=== PATIENT | male | born 1955 | race Caucasian/White ===

== ENCOUNTER 2016-09-17 14:35 | Emergency (ER) | payer OTHER ==
[2016-09-17 14:58] VITALS: BP 167/97; PULSE 65; RESP 18; TEMP 97.2
--- NOTE | 2016-09-17 15:37 | XR ---
Right humerus HISTORY: Pain 2 views of the right humerus submitted No comparisons Bone mineralization, alignment, joint spaces are maintained. No cortical destruction or evident soft tissue mass. IMPRESSION: No significant abnormalities evident. Follow-up as indicated
--- NOTE | 2016-09-17 15:58 | ED ---
Upper Extremity HPI - General Chief Complaint: Extremity Injury, Upper Stated Complaint: Pain in R arm Time Seen by Provider: 09/17/16 15:01 Source: patient, RN notes reviewed Mode of arrival: ambulatory Limitations: no limitations - History of Present Illness Initial Comments: Patient is a 61 year old male with right arm pain for one week after switching to a larger coffee cup, patient reports he saw his PCP and was told this could be related to his statin, and was told to discontinue his statin for 10 days. Patient reports he has done this for 5 days. Patient reports he has had a stroke many years ago, so his right side is chronically weaker. He has not evidence of neurlogical deficits or motor weakness. Patient states that he has done heat pads and taken naproxen with relief. Patient reports the pain only occurs if he over uses that arm. Patient states the pain is starting in the upper arm and can radiate to his forearm. HE denies peripheral paresthesias, or any other symptoms. - Related Data Home Medications Medication Instructions Recorded Confirmed Aspirin 325 mg PO DAILY 12/16/14 09/17/16 Atorvastatin [Lipitor] 10 mg PO HS 12/16/14 09/17/16 Glimepiride [Glimepiride] 4 mg PO BID 12/16/14 09/17/16 Primidone [Primidone] 150 mg PO BID 12/16/14 09/17/16 sitaGLIPtin [Januvia] 100 mg PO DAILY 12/16/14 09/17/16 Gabapentin 600 mg PO BID 09/17/16 09/17/16 Gabapentin 800 mg PO HS 09/17/16 09/17/16 metFORMIN HCL 1,000 mg PO BID 09/17/16 09/17/16 Previous Rx's Medication Instructions Recorded Cyclobenzaprine [Flexeril] 10 mg PO TID #9 tab 09/17/16 Allergies Allergy/AdvReac Type Severity Reaction Status Date / Time No Known Allergies Allergy Verified 09/17/16 15:27 Review of Systems ROS Statement: Those systems with pertinent positive or pertinent negative responses have been documented in the HPI. ROS Other: All systems not noted in ROS Statement are negative. Past Medical History Past Medical History: CVA/TIA, GERD/Reflux, Hyperlipidemia, Neurologic Disorder , Seizure Disorder History of Any Multi-Drug Resistant Organisms: None Reported Past Surgical History: Orthopedic Surgery Additional Past Surgical History / Comment(s): neuropathy, last seizure 1986, "born with convulsions", lymph nodes removed left cervical, left knee surgery Past Psychological History: No Psychological Hx Reported Smoking Status: Former smoker Past Alcohol Use History: Rare Past Drug Use History: None Reported General Exam Limitations: no limitations General appearance: alert, in no apparent distress Head exam: Present: atraumatic, normocephalic, normal inspection Eye exam: Present: normal appearance, PERRL, EOMI. Absent: scleral icterus, conjunctival injection, periorbital swelling ENT exam: Present: normal exam, mucous membranes moist Neck exam: Present: normal inspection. Absent: tenderness, meningismus, lymphadenopathy Respiratory exam: Present: normal lung sounds bilaterally. Absent: respiratory distress, wheezes, rales, rhonchi, stridor Cardiovascular Exam: Present: regular rate, normal rhythm, normal heart sounds. Absent: systolic murmur, diastolic murmur, rubs, gallop, clicks GI/Abdominal exam: Present: soft, normal bowel sounds. Absent: distended, tenderness, guarding, rebound, rigid Extremities exam: Present: normal inspection, full ROM, normal capillary refill. Absent: tenderness, pedal edema, joint swelling, calf tenderness Right Upper Arm exam: Present: normal inspection, full ROM Elbow exam: Present: normal inspection, full ROM Forearm Wrist exam: Present: normal inspection, full ROM Hand Wrist exam: Present: normal inspection, full ROM Back exam: Present: normal inspection Neurological exam: Present: alert, oriented X3, CN II-XII intact Psychiatric exam: Present: normal affect, normal mood Skin exam: Present: warm, dry, intact, normal color. Absent: rash Course Vital Signs 09/17/16 14:55 Temperature 97.2 F L Pulse Rate 65 Respiratory 18 Rate Blood Pressure 167/97 O2 Sat by Pulse 99 Oximetry Medical Decision Making - Medical Decision Making Patient is a 61 year old male with right arm pain for one week after switching to using a heavy coffee cup. Patient reports that his pain only hurts when he has excessive use of the arm. Xray of humerus shows no acute abnormalities. Patient has full strength in bilateral extermities. Patient advised to continue to hold on using statin until seen by PCP in 5 days. Patient also gven short Rx for muscle relaxer to use if symptoms continue to perisist despite antifinflammatory medication. Disposition Clinical Impression: Right arm pain Disposition: HOME SELF-CARE Condition: Good Additional Instructions: Patient instructed to apply warm compresses over her arm. Take muscle relaxers as directed. Follow-up with primary care physician in the next week as scheduled. Prescriptions: Cyclobenzaprine [Flexeril] 10 mg PO TID #9 tab Referrals: Jason Morse MD [Primary Care Provider] - 1-2 days Time of Disposition: 15:57
== END 2016-09-17 16:15 | disposition home or self-care (01) ==
LOC: EC 14:35
DX: M79.601 Pain in right arm (principal); G40.909 Epilepsy, unspecified, not intractable, without status epilepticus; G62.9 Polyneuropathy, unspecified; Z79.899 Other long term (current) drug therapy; Z79.84 Long term (current) use of oral hypoglycemic drugs; Z79.82 Long term (current) use of aspirin; Z87.891 Personal history of nicotine dependence; Z86.73 Personal history of transient ischemic attack (TIA), and cerebral infarction without residual deficits
CPT/HCPCS: 99283

== ENCOUNTER 2018-04-04 16:50 | Emergency (ER) | payer MEDICARE, OTHER ==
[2018-04-04] MEDS ORDERED: SODIUM CHLORIDE 0.9% 1,000 ML IV STA (17:20)
[2018-04-04 17:25] LABS: Glucose,Whole Blood 79 mg/dL (75-99)
[2018-04-04] MEDS ORDERED: ONDANSETRON 4 MG/2 ML VIAL IVP STA (17:25)
--- NOTE | 2018-04-04 17:32 | ED ---
Recheck HPI - General Chief Complaint: Recheck/Abnormal Lab/Rx Stated Complaint: diaphoresis and nausea Time Seen by Provider: 04/04/18 17:06 Source: patient, EMS, RN notes reviewed Mode of arrival: EMS Limitations: no limitations - History of Present Illness Initial Comments: This is a 62-year-old male who presents to the emergency department with chief complaint of diaphoresis and nausea. Patient states that at approximately 4 PM he became nauseous. He states he went to the bathroom and tried to vomit but was unable to. He states that he then felt nauseous for a second time, went to the bathroom and was unable to vomit again. He states that he attempted to make himself throw up and became very diaphoretic. He states that his shirt was soaked. 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 Patient states he then became very cold. He then contacted EMS. Blood glucose was checked on the way to the hospital and was 74. He was given oral glucose supplementation. Patient does have type II diabetes and does take Januvia. He denies any cardiac history but does state he has had one stroke and 2 TIAs. At this time, patient complains of nausea. He denies fevers or chills, chest pain or shortness of breath, abdominal pain, diarrhea or constipation, weakness, dizziness or headache. - Related Data Home Medications Medication Instructions Recorded Confirmed Aspirin 325 mg PO DAILY 12/16/14 09/17/16 Atorvastatin [Lipitor] 10 mg PO HS 12/16/14 09/17/16 Glimepiride 4 mg PO BID 12/16/14 09/17/16 Primidone 150 mg PO BID 12/16/14 09/17/16 sitaGLIPtin [Januvia] 100 mg PO DAILY 12/16/14 09/17/16 Gabapentin 600 mg PO BID 09/17/16 09/17/16 Gabapentin 800 mg PO HS 09/17/16 09/17/16 metFORMIN HCL 1,000 mg PO BID 09/17/16 09/17/16 Previous Rx's Medication Instructions Recorded Cyclobenzaprine [Flexeril] 10 mg PO TID #9 tab 09/17/16 Allergies Allergy/AdvReac Type Severity Reaction Status Date / Time No Known Allergies Allergy Verified 09/17/16 15:27 Review of Systems ROS Statement: Those systems with pertinent positive or pertinent negative responses have been documented in the HPI. ROS Other: All systems not noted in ROS Statement are negative. Past Medical History Past Medical History: CVA/TIA, GERD/Reflux, Hyperlipidemia, Neurologic Disorder , Seizure Disorder History of Any Multi-Drug Resistant Organisms: None Reported Past Surgical History: Orthopedic Surgery Additional Past Surgical History / Comment(s): neuropathy, last seizure 1986, "born with convulsions", lymph nodes removed left cervical, left knee surgery Past Psychological History: No Psychological Hx Reported Smoking Status: Former smoker Past Alcohol Use History: Rare Past Drug Use History: None Reported General Exam - General Exam Comments Initial Comments: General: Awake and alert, well-developed; in no apparent distress. Lying comfortably on ED stretcher. Patient is not diaphoretic at this time. HEENT: Head atraumatic, normocephalic. Pupils are equal, round and reactive to light. Extraocular movements intact. Oropharynx moist without erythema or exudate. Neck: Supple. Normal ROM. Cardiovascular: Regular rate and rhythm. No murmurs, rubs or gallops. Chest symmetrical. Respiratory: Lungs clear to auscultation bilaterally. No wheezes, rales or rhonchi. Normal respiratory effort with no use of accessory muscles. Abdomen: Soft, non-tender, non-distended. No rigidity, rebound or guarding. Normal bowel sounds in all 4 quadrants. Musculoskeletal: Normal ROM, no tenderness, strength 5/5 bilateral upper and lower extremities. Ambulating normally. Skin: [place], warm and dry without rashes or lesions. Neurological: Alert and oriented x3. CN II-XII grossly intact. Speech is fluent and answers are appropriate. No focal neuro deficits. Psychiatric: Normal mood and affect. No overt signs of depression or anxiety noted. Limitations: no limitations Course Vital Signs 04/04/18 16:51 Temperature 97.4 F L Pulse Rate 65 Respiratory 18 Rate Blood Pressure 189/87 O2 Sat by Pulse 100 Oximetry Medical Decision Making - Medical Decision Making This is a 62-year-old male who presents to the emergency department with chief complaint of diaphoresis and nausea. Patient does have a history of diabetes. He states that he does not check his blood sugar. He states that he had an episode of nausea and diaphoresis prior to arrival. Blood glucose was checked by EMS on arrival and was noted to be 74. Patient was given oral glucose. Patient has been asymptomatic while in the emergency department. He is no longer diaphoretic. No nausea or vomiting. Cardiac workup was performed. This was negative. EKG revealed sinus bradycardia. Troponin is negative. CBC and CMP are unremarkable. Patient's vital signs have been stable and he is in no acute distress. He will be discharged home at this time. Recommended checking his blood glucose level daily, however patient refuses. He states that he does not want to poke his finger as it is painful. All questions answered. - Lab Data Result diagrams: 04/04/18 12:00 04/04/18 12:00 Lab Results 04/04/18 04/04/18 04/04/18 Range/Units 12:00 12:00 12:00 WBC 11.0 H (3.8-10.6) k/uL RBC 4.12 L (4.30-5.90) m/uL Hgb 13.5 (13.0-17.5) gm/dL Hct 39.4 (39.0-53.0) % MCV 95.5 (80.0-100.0) fL MCH 32.9 (25.0-35.0) pg MCHC 34.4 (31.0-37.0) g/dL RDW 13.0 (11.5-15.5) % Plt Count 282 (150-450) k/uL Neutrophils % 72 % Lymphocytes % 19 % Monocytes % 6 % Eosinophils % 1 % Basophils % 0 % Neutrophils # 7.9 H (1.3-7.7) k/uL Lymphocytes # 2.1 (1.0-4.8) k/uL Monocytes # 0.7 (0-1.0) k/uL Eosinophils # 0.1 (0-0.7) k/uL Basophils # 0.0 (0-0.2) k/uL PT (9.0-12.0) sec INR (<1.2) APTT (22.0-30.0) sec Sodium 137 (137-145) mmol/L Potassium 4.3 (3.5-5.1) mmol/L Chloride 100 (98-107) mmol/L Carbon Dioxide 24 (22-30) mmol/L Anion Gap 13 mmol/L BUN 17 (9-20) mg/dL Creatinine 0.82 (0.66-1.25) mg/dL Est GFR (CKD-EPI)AfAm >90 (>60 ml/min/1.73 sqM) Est GFR (CKD-EPI)NonAf >90 (>60 ml/min/1.73 sqM) Glucose 75 (74-99) mg/dL POC Glucose (mg/dL) (75-99) mg/dL POC Glu Gospel Singer ID Calcium 10.0 (8.4-10.2) mg/dL Magnesium 1.8 (1.6-2.3) mg/dL Total Bilirubin 0.3 (0.2-1.3) mg/dL AST 22 (17-59) U/L ALT 26 (21-72) U/L Alkaline Phosphatase 103 (38-126) U/L Total Creatine Kinase 85 (55-170) U/L CK-MB (CK-2) 0.7 (0.0-2.4) ng/mL CK-MB (CK-2) Rel Index 0.8 Troponin I <0.012 (0.000-0.034) ng/mL Total Protein 8.4 H (6.3-8.2) g/dL Albumin 4.6 (3.5-5.0) g/dL Urine Color Urine Appearance (Clear) Urine pH (5.0-8.0) Ur Specific [place] (1.001-1.035) Urine Protein (Negative) Urine Glucose (UA) (Negative) Urine Ketones (Negative) Urine Blood (Negative) Urine Nitrite (Negative) Urine Bilirubin (Negative) Urine Urobilinogen (<2.0) mg/dL Ur Leukocyte Esterase (Negative) 04/04/18 04/04/18 04/04/18 Range/Units 12:00 17:14 18:59 WBC (3.8-10.6) k/uL RBC (4.30-5.90) m/uL Hgb (13.0-17.5) gm/dL Hct (39.0-53.0) % MCV (80.0-100.0) fL MCH (25.0-35.0) pg MCHC (31.0-37.0) g/dL RDW (11.5-15.5) % Plt Count (150-450) k/uL Neutrophils % % Lymphocytes % % Monocytes % % Eosinophils % % Basophils % % Neutrophils # (1.3-7.7) k/uL Lymphocytes # (1.0-4.8) k/uL Monocytes # (0-1.0) k/uL Eosinophils # (0-0.7) k/uL Basophils # (0-0.2) k/uL PT 10.7 (9.0-12.0) sec INR 1.1 (<1.2) APTT 26.1 (22.0-30.0) sec Sodium (137-145) mmol/L Potassium (3.5-5.1) mmol/L Chloride (98-107) mmol/L Carbon Dioxide (22-30) mmol/L Anion Gap mmol/L BUN (9-20) mg/dL Creatinine (0.66-1.25) mg/dL Est GFR (CKD-EPI)AfAm (>60 ml/min/1.73 sqM) Est GFR (CKD-EPI)NonAf (>60 ml/min/1.73 sqM) Glucose (74-99) mg/dL POC Glucose (mg/dL) 79 (75-99) mg/dL POC Glu Gospel Singer ID Ileana Torrez Calcium (8.4-10.2) mg/dL Magnesium (1.6-2.3) mg/dL Total Bilirubin (0.2-1.3) mg/dL AST (17-59) U/L ALT (21-72) U/L Alkaline Phosphatase (38-126) U/L Total Creatine Kinase (55-170) U/L CK-MB (CK-2) (0.0-2.4) ng/mL CK-MB (CK-2) Rel Index Troponin I (0.000-0.034) ng/mL Total Protein (6.3-8.2) g/dL Albumin (3.5-5.0) g/dL Urine Color Light Yellow Urine Appearance Clear (Clear) Urine pH 7.5 (5.0-8.0) Ur Specific [place] 1.011 (1.001-1.035) Urine Protein Trace H (Negative) Urine Glucose (UA) Negative (Negative) Urine Ketones Negative (Negative) Urine Blood Negative (Negative) Urine Nitrite Negative (Negative) Urine Bilirubin Negative (Negative) Urine Urobilinogen <2.0 (<2.0) mg/dL Ur Leukocyte Esterase Negative (Negative) - Radiology Data Radiology results: report reviewed Chest x-ray impression: No acute cardiopulmonary process. No significant change from prior. Disposition Clinical Impression: Hypoglycemic reaction Disposition: HOME SELF-CARE Condition: Good Instructions: Hypoglycemia in a Person with Diabetes (ED) Additional Instructions: Please follow up with primary care provider within 1-2 days. Return to emergency department if symptoms should worsen or any concerns arise. Is patient prescribed a controlled substance at d/c from ED?: No Referrals: Jason Morse MD [Primary Care Provider] - 1-2 days Time of Disposition: 18:54
[2018-04-04 17:44] LABS: Basophils % (A) 0 %; Eosinophils # (A) 0.1 k/uL (0-0.7); Eosinophils % (A) 1 %; HCT 39.4 % (39.0-53.0); HGB 13.5 gm/dL (13.0-17.5); Lymphocytes # (A) 2.1 k/uL (1.0-4.8); Lymphocytes % (A) 19 %; MCH 32.9 pg (25.0-35.0); MCHC 34.4 g/dL (31.0-37.0); MCV 95.5 fL (80.0-100.0); Mean Platelet Volume 6.2; Monocytes # (A) 0.7 k/uL (0-1.0); Monocytes % (A) 6 %; Neutrophils # (A) 7.9 k/uL (1.3-7.7); Neutrophils % (A) 72 %; Platelet Count 282 k/uL (150-450); RBC 4.12 m/uL (4.30-5.90)
[2018-04-04 17:55] LABS: ALT 26 U/L (21-72); AST 22 U/L (17-59); Albumin 4.6 g/dL (3.5-5.0); Alkaline Phosphatase 103 U/L (38-126); Anion Gap 13 mmol/L; Blood Urea Nitrogen 17 mg/dL (9-20); Carbon Dioxide 24 mmol/L (22-30); Chloride 100 mmol/L (98-107); Glucose 75 mg/dL (74-99); Magnesium 1.8 mg/dL (1.6-2.3); Potassium 4.3 mmol/L (3.5-5.1); Sodium 137 mmol/L (137-145); Total Bilirubin 0.3 mg/dL (0.2-1.3); Total Protein 8.4 g/dL (6.3-8.2)
[2018-04-04 17:58] LABS: INR 1.1 (<1.2); Partial Thromboplastin Time 26.1 sec (22.0-30.0); Prothrombin Time 10.7 sec (9.0-12.0)
[2018-04-04 18:06] LABS: Creatine Kinase 85 U/L (55-170)
[2018-04-04 18:19] LABS: Creatine Kinase MB 0.7 ng/mL (0.0-2.4); Troponin I <0.012 ng/mL (0.000-0.034)
--- NOTE | 2018-04-04 18:28 | XR ---
EXAMINATION TYPE: XR chest 2V DATE OF EXAM: 04/04/2018 COMPARISON: Chest x-ray March 10, 2012 HISTORY: Chest pain and hypoglycemia. TECHNIQUE: Frontal and lateral views of the chest are obtained. FINDINGS: Mild to moderate biapical pleural/parenchymal scarring is redemonstrated. There is no focal air space opacity, pleural effusion, or pneumothorax seen. The cardiac silhouette size is within no rmal limits. Atherosclerotic change in aortic knob is again seen The osseous structures are intact. IMPRESSION: No acute cardiopulmonary process. No significant change from prior.
[2018-04-04 19:04] LABS: Appearance,Urine Clear (Clear); Bilirubin,Urine Negative (Negative); Blood,Urine Negative (Negative); Color,Urine Light Yellow; Glucose,Urine (UA) Negative (Negative); Ketones,Urine Negative (Negative); Leukocyte Esterase,Urine Negative (Negative); Nitrite,Urine Negative (Negative); PH, Urine 7.5 (5.0-8.0); Protein,Urine Trace (Negative); Specific Gravity,Urine 1.011 (1.001-1.035); Urobilinogen,Urine <2.0 mg/dL (<2.0)
[2018-04-04 19:14] VITALS: BP 143/79; PULSE 64; RESP 16; TEMP 97.8
== END 2018-04-04 19:26 | disposition home or self-care (01) ==
LOC: EC 16:50
DX: E11.649 Type 2 diabetes mellitus with hypoglycemia without coma (principal); E11.40 Type 2 diabetes mellitus with diabetic neuropathy, unspecified; R00.1 Bradycardia, unspecified; E78.5 Hyperlipidemia, unspecified; G40.909 Epilepsy, unspecified, not intractable, without status epilepticus; Z87.891 Personal history of nicotine dependence; Z79.82 Long term (current) use of aspirin; Z79.899 Other long term (current) drug therapy; Z79.84 Long term (current) use of oral hypoglycemic drugs
CPT/HCPCS: 36415; 93005; 80053; 82550; 82553; 83735; 84484; 85025; 85610; 85730; 81003; 71046; 99285; 96374; 96361 ×2; J2405

== ENCOUNTER 2018-05-03 04:18 | Emergency (ER) | payer MEDICARE, OTHER ==
--- NOTE | 2018-05-03 04:40 | ED ---
General Adult HPI - General Chief complaint: Extremity Problem,Nontraumatic Stated complaint: Leg and hip pain Time Seen by Provider: 05/03/18 04:40 Source: patient Mode of arrival: ambulatory Limitations: no limitations - History of Present Illness Initial comments: Ed Harrell is a 63-year-old male who presents to the emergency department for evaluation of 6 days of left leg pain. Patient reports that he has a history of arthritis in his low back, he reports that he been riding his bike a lot and developed pain the radiated from his left buttock down his left leg. He has not rode his bike since Friday due to the pain. Patient states that the pain is intermittent, worse with movement. The pain is sharp stabbing radiates from his left buttock down to his left foot patient states that occasionally he only has the pain to his knee. Patient reports that he has been taking his home medications including Flexeril and gabapentin which he takes for chronic neuropathy. He also states that he has been taking naproxen with minimal improvement in the pain. Patient reports that 2 nights in a row he has been awoken during the night due to the pain. His morning he couldn't deal with it anymore so he came in the ER for reevaluation. The patient denies any fevers, chills, midline back pain. He denies any recent trauma. Denies any history of surgeries to his spine. He denies any IV drug abuse. He denies any history of cancers. He denies any weakness in the bilateral lower extremities. He reports he's been able to walk like normal. He reports no paresthesias or saddle anesthesia. He denies any urinary or bowel incontinence or retention. - Related Data Home Medications Medication Instructions Recorded Confirmed Aspirin 325 mg PO DAILY 12/16/14 09/17/16 Atorvastatin [Lipitor] 10 mg PO HS 12/16/14 09/17/16 Glimepiride 4 mg PO BID 12/16/14 09/17/16 Primidone 150 mg PO BID 12/16/14 09/17/16 sitaGLIPtin [Januvia] 100 mg PO DAILY 12/16/14 09/17/16 Gabapentin 600 mg PO BID 09/17/16 09/17/16 Gabapentin 800 mg PO HS 09/17/16 09/17/16 metFORMIN HCL 1,000 mg PO BID 09/17/16 09/17/16 Previous Rx's Medication Instructions Recorded Cyclobenzaprine [Flexeril] 10 mg PO TID #9 tab 09/17/16 Lidocaine 5% Patch [Lidoderm] 1 patch TOPICAL DAILY #30 patch 05/03/18 Allergies Allergy/AdvReac Type Severity Reaction Status Date / Time No Known Allergies Allergy Verified 05/03/18 04:23 Review of Systems ROS Statement: Those systems with pertinent positive or pertinent negative responses have been documented in the HPI. ROS Other: All systems not noted in ROS Statement are negative. Past Medical History Past Medical History: CVA/TIA, GERD/Reflux, Hyperlipidemia, Neurologic Disorder , Seizure Disorder History of Any Multi-Drug Resistant Organisms: None Reported Past Surgical History: Orthopedic Surgery Additional Past Surgical History / Comment(s): neuropathy, last seizure 1986, "born with convulsions", lymph nodes removed left cervical, left knee surgery Past Psychological History: No Psychological Hx Reported Smoking Status: Former smoker Past Alcohol Use History: Rare Past Drug Use History: None Reported General Exam - General Exam Comments Initial Comments: GENERAL: Patient is well-developed and well-nourished. Patient is nontoxic and well- hydrated and is in mild distress. HENT: Normocephalic, Atraumatic. EYES: The sclera were anicteric and conjunctiva were pink and moist. Extraocular movements were intact and pupils were equal round and reactive to light. Eyelids were unremarkable. PULMONARY: Unlabored respirations. Good breath sounds bilaterally. No audible rales rhonchi or wheezing was noted. CARDIOVASCULAR: There is a regular rate and rhythm without any murmurs gallops or rubs. ABDOMEN: Soft and nontender with normal bowel sounds. SKIN: Skin is clear with no lesions or rashes and otherwise unremarkable. NEUROLOGIC: Patient is alert and oriented x3. Cranial nerves II through XII are grossly intact. Motor and sensory are also intact. Normal strength in bilateral lower extremities. Normal patellar tendon reflexes bilaterally. MUSCULOSKELETAL: Normal extremities with adequate strength and full range of motion. No lower extremity swelling or edema. No calf tenderness. LYMPHATICS: No significant lymphadenopathy is noted PSYCHIATRIC: Normal psychiatric evaluation. Limitations: no limitations Limitations: no limitations Course Vital Signs 05/03/18 05/03/18 04:21 06:31 Temperature 97.6 F 97.7 F Pulse Rate 83 73 Respiratory 20 17 Rate Blood Pressure 166/92 163/89 O2 Sat by Pulse 99 100 Oximetry Medical Decision Making - Medical Decision Making The patient was seen and evaluated, history and physical exam are concerning for sciatic back pain. Patient does not have any red flag symptoms for back pain The patient able to ambulate independently to the restroom multiple times during his ED stay IM muscle relaxer was ordered for the patient, patient received the injection and was screaming out in pain stating that the injection was intensely painful Patient continued to ambulate throughout the emergency department appeared to be in no acute distress but would lay down in bed moaning out in pain Patient had walked to the emergency department, did not drive as he does not have a motor vehicle. I am dose of morphine was ordered. Sciatica exercises were discussed with the patient, patient states that he will not do exercises and will not do physical therapy. Has an established relationship with a neurologist due to his peripheral neuropathy and tremors, I advised the patient to follow up with his neurologist to discuss his sciatica and follow up with primary care for referral to neurosurgery if he has persistent symptoms. Return parameters were discussed with patient was discharged home in stable condition. Patient was able to ambulate out of the emergency department with no apparent difficulty Disposition Clinical Impression: Chronic low back pain, Left sided sciatica Disposition: HOME SELF-CARE Condition: Stable Instructions: Sciatica (ED), Lumbar Radiculopathy (ED), Piriformis Syndrome (ED ), Lower Back Exercises (ED) Prescriptions: Lidocaine 5% Patch [Lidoderm] 1 patch TOPICAL DAILY #30 patch Is patient prescribed a controlled substance at d/c from ED?: No Referrals: Jason Morse MD [Primary Care Provider] - 1-2 days
[2018-05-03] MEDS ORDERED: ORPHENADRINE 30 MG/ML 2 ML VIAL IM STA (05:13)
[2018-05-03] MEDS ORDERED: LIDOCAINE 5% PATCH TOPICAL STA (05:14)
[2018-05-03] MEDS ORDERED: LIDOCAINE 5% PATCH TOPICAL ONE (05:30)
[2018-05-03] MEDS ORDERED: MORPHINE SULFATE 4 MG/ML SYRINGE IM STA (06:15)
[2018-05-03 06:32] VITALS: BP 163/89; PULSE 73; RESP 17; TEMP 97.7
== END 2018-05-03 06:42 | disposition home or self-care (01) ==
LOC: EC 04:18
DX: M54.42 Lumbago with sciatica, left side (principal); G89.29 Other chronic pain; E78.5 Hyperlipidemia, unspecified; G62.9 Polyneuropathy, unspecified; Z79.82 Long term (current) use of aspirin; Z79.84 Long term (current) use of oral hypoglycemic drugs; Z79.899 Other long term (current) drug therapy; Z87.891 Personal history of nicotine dependence; Z86.73 Personal history of transient ischemic attack (TIA), and cerebral infarction without residual deficits
CPT/HCPCS: 99283; 96372 ×2; J2270; J2360

== ENCOUNTER → 2018-05-30 | Outpatient (CLI) | payer MEDICARE, OTHER ==
--- NOTE | 2018-05-30 23:18 | MR ---
EXAMINATION TYPE: MR lumbar spine wo con DATE OF EXAM: 05/30/2018 COMPARISON: NONE HISTORY: Lumbago per order. Back pain down left leg for 2 months per patient. TECHNIQUE: Multiplanar, multisequence imaging of the lumbar spine is performed without IV contrast. FINDINGS: Sagittal images of the lumbar spine show vertebral body heights and alignment to appear sat isfactory. Multilevel disc desiccation is present with multilevel mild disc space narrowing. Tiny po sterior disc herniations are seen on sagittal images most prominent L3-L4 level. The conus medullaris is normal in position and signal ending T12-L1 disc space level. Mild multilevel anterior spurring i s seen. The bone marrow signal intensity is within normal limits. Axial images show the T12-L1 and L1-L2 levels to appear within normal limits. Axial images at the L2-L3 level show mild broad disc bulge mildly effacing anterior thecal sac. Mild facet degenerative change and ligament flavum hypertrophy are present. There is mild left greater marianna n right anterior inferior neural foraminal narrowing seen. Axial images at the L3-L4 level show mild facet degenerative changes and ligamentum flavum hypertroph y, right greater than left. There is broad-based posterior disc protrusion mildly effacing anterior t hecal sac. There is mild bilateral anterior inferior neural foraminal narrowing noted. Axial images at the L4-L5 levels and mild/moderate facet degenerative changes bilaterally. There is b road disc bulge seen mildly effacing anterior thecal sac. There is mild bilateral anterior inferior n eural foraminal narrowing noted. Axial images at the L5-S1 level are felt within normal limits. No suspicious retroperitoneal findings are seen. IMPRESSION: Multilevel degenerative changes in the lumbar spine at L2-L3 through the L4-L5 levels as detailed above. No significant or suspicious posterior disc herniation is seen to account for patient 's left-sided radiculopathy type symptoms however.
== END | disposition home or self-care (01) ==
LOC: RADMRIMAIN 10:01
PROVIDERS: ATTEND Psychiatry & Neurology Neurology
DX: M47.26 Other spondylosis with radiculopathy, lumbar region (principal)
CPT/HCPCS: 72148

== ENCOUNTER 2020-02-12 20:43 | Inpatient (IN) | payer MEDICARE, OTHER ==
[2020-02-12 20:50] LABS: Glucose,Whole Blood 64 mg/dL (75-99)
[2020-02-12] MEDS ORDERED: DEXTROSE 50% SYRINGE 50 ML IVP STA (21:03)
[2020-02-12] MEDS ORDERED: SODIUM CHLORIDE 0.9% 1,000 ML IV ONE (21:05)
--- NOTE | 2020-02-12 21:11 | ED ---
Altered Mental Status HPI - General Chief Complaint: Altered Mental Status Stated Complaint: Dehydration Time Seen by Provider: 02/12/20 20:49 Source: patient, EMS Mode of arrival: EMS Limitations: no limitations - History of Present Illness Initial Comments: Patient is a 64-year-old male presenting to the emergency department via EMS with complaints of altered mental status. Patient states his neighbors called EMS on him because he was "acting weird." EMS checked his glucose which was low at 60 they did give him oral glucose. Patient stated he did not want to come in, he has had this in the past. Patient states EMS told him his blood pressure was high and that he needed to come in. Patient denies taking blood pressure medication. He does admit to being a diabetic and taking cholesterol medication as well as "something for tremors." He denies taking insulin, he takes oral diabetic meds. Patient denies any recent fever, chills, chest pain, shortness of breath, abdominal pain, nausea, vomiting. He has no complaints at this time. He states he just wants to go home. Upon arrival to the ER, patient's blood pressure was elevated at 174/100, rest of vitals are normal. - Related Data Home Medications Medication Instructions Recorded Confirmed Aspirin 325 mg PO DAILY 12/16/14 09/17/16 Atorvastatin [Lipitor] 10 mg PO HS 12/16/14 09/17/16 Glimepiride 4 mg PO BID 12/16/14 09/17/16 Primidone 150 mg PO BID 12/16/14 09/17/16 sitaGLIPtin [Januvia] 100 mg PO DAILY 12/16/14 09/17/16 Gabapentin 600 mg PO BID 09/17/16 09/17/16 Gabapentin 800 mg PO HS 09/17/16 09/17/16 metFORMIN HCL 1,000 mg PO BID 09/17/16 09/17/16 Previous Rx's Medication Instructions Recorded Cyclobenzaprine [Flexeril] 10 mg PO TID #9 tab 09/17/16 Lidocaine 5% Patch [Lidoderm] 1 patch TOPICAL DAILY #30 patch 05/03/18 Allergies Allergy/AdvReac Type Severity Reaction Status Date / Time No Known Allergies Allergy Verified 02/12/20 20:54 Review of Systems ROS Statement: Those systems with pertinent positive or pertinent negative responses have been documented in the HPI. ROS Other: All systems not noted in ROS Statement are negative. Past Medical History Past Medical History: CVA/TIA, GERD/Reflux, Hyperlipidemia, Neurologic Disorder, Seizure Disorder History of Any Multi-Drug Resistant Organisms: None Reported Past Surgical History: Orthopedic Surgery Additional Past Surgical History / Comment(s): neuropathy, last seizure 1986, "born with convulsions", lymph nodes removed left cervical, left knee surgery Past Psychological History: No Psychological Hx Reported Smoking Status: Former smoker Past Alcohol Use History: Rare Past Drug Use History: None Reported General Exam - General Exam Comments Initial Comments: GENERAL: Well-appearing, well-nourished and in no acute distress. HEAD: Atraumatic, normocephalic. EYES: Pupils equal round and reactive to light, extraocular movements intact, sclera anicteric, conjunctiva are normal. ENT: TMs normal, nares patent, oropharynx clear without exudates. Moist mucous membranes. NECK: Normal range of motion, supple without lymphadenopathy or JVD. LUNGS: Breath sounds clear to auscultation bilaterally and equal. No wheezes rales or rhonchi. HEART: Regular rate and rhythm without murmurs, rubs or gallops. ABDOMEN: Soft, nontender, normoactive bowel sounds. No guarding, no rebound. No masses appreciated. : Deferred EXTREMITIES: Normal range of motion, no pitting or edema. No clubbing or cyanosis. NEUROLOGICAL: Cranial nerves II through XII grossly intact. Normal speech, normal gait. PSYCH: Normal mood, normal affect. SKIN: Warm, Dry, normal turgor, no rashes or lesions noted. Limitations: no limitations Course Vital Signs 02/12/20 02/12/20 20:46 22:46 Temperature 97.5 F L Pulse Rate 67 68 Respiratory 18 18 Rate Blood Pressure 174/100 159/93 O2 Sat by Pulse 100 98 Oximetry Medical Decision Making - Medical Decision Making Patient is a 64-year-old male here for altered mental status that was witnessed by neighbors. EMS had his blood glucose at 60. He does have history of diabetes and takes glimepiride, januvia, and metformin. Patient was slightly hypertensive upon arrival, rest of his vitals were normal. Exam is unr emarkable. He has no complaints. Initial blood sugar reading was 64 upon arrival after oral glucose. Patient was given an amp of dextrose which did increase his glucose to 159. Glucose was rechecked again approximately an hour and half later and it had dropped down to 107. Rest of his lab work showed no acute abnormalities. Patient will be admitted for persistent hypoglycemia. I will start him on D5. Patient will be admitted to Dr. Knight. Patient is agreeable with this plan of care. Case discussed with Dr. Noguera. - Lab Data Result diagrams: 02/12/20 20:58 02/12/20 20:58 Lab Results 02/12/20 02/12/20 02/12/20 Range/Units 20:48 20:58 20:58 WBC 8.0 (3.8-10.6) k/uL RBC 3.58 L (4.30-5.90) m/uL Hgb 12.2 L (13.0-17.5) gm/dL Hct 35.7 L (39.0-53.0) % MCV 99.7 (80.0-100.0) fL MCH 34.0 (25.0-35.0) pg MCHC 34.1 (31.0-37.0) g/dL RDW 13.3 (11.5-15.5) % Plt Count 271 (150-450) k/uL Neutrophils % 51 % Lymphocytes % 37 % Monocytes % 8 % Eosinophils % 3 % Basophils % 0 % Neutrophils # 4.0 (1.3-7.7) k/uL Lymphocytes # 3.0 (1.0-4.8) k/uL Monocytes # 0.6 (0-1.0) k/uL Eosinophils # 0.2 (0-0.7) k/uL Basophils # 0.0 (0-0.2) k/uL PT 10.6 (9.0-12.0) sec INR 1.0 (<1.2) APTT 25.7 (22.0-30.0) sec Sodium (137-145) mmol/L Potassium (3.5-5.1) mmol/L Chloride (98-107) mmol/L Carbon Dioxide (22-30) mmol/L Anion Gap mmol/L BUN (9-20) mg/dL Creatinine (0.66-1.25) mg/dL Est GFR (CKD-EPI)AfAm (>60 ml/min/1.73 sqM) Est GFR (CKD-EPI)NonAf (>60 ml/min/1.73 sqM) Glucose (74-99) mg/dL POC Glucose (mg/dL) 64 L (75-99) mg/dL POC Glu Screen And Cyclone Repairer ID Mariano Felix Calcium (8.4-10.2) mg/dL Total Bilirubin (0.2-1.3) mg/dL AST (17-59) U/L ALT (4-49) U/L Alkaline Phosphatase (38-126) U/L Total Protein (6.3-8.2) g/dL Albumin (3.5-5.0) g/dL Urine Color Urine Appearance (Clear) Urine pH (5.0-8.0) Ur Specific Bracey (1.001-1.035) Urine Protein (Negative) Urine Glucose (UA) (Negative) Urine Ketones (Negative) Urine Blood (Negative) Urine Nitrite (Negative) Urine Bilirubin (Negative) Urine Urobilinogen (<2.0) mg/dL Ur Leukocyte Esterase (Negative) Urine Opiates Screen (NotDetected) Ur Oxycodone Screen (NotDetected) Urine Methadone Screen (NotDetected) Ur Propoxyphene Screen (NotDetected) Ur Barbiturates Screen (NotDetected) U Tricyclic Antidepress (NotDetected) Ur Phencyclidine Scrn (NotDetected) Ur Amphetamines Screen (NotDetected) U Methamphetamines Scrn (NotDetected) U Benzodiazepines Scrn (NotDetected) Urine Cocaine Screen (NotDetected) U Marijuana (THC) Screen (NotDetected) Serum Alcohol mg/dL 02/12/20 02/12/20 02/12/20 Range/Units 20:58 21:14 22:13 WBC (3.8-10.6) k/uL RBC (4.30-5.90) m/uL Hgb (13.0-17.5) gm/dL Hct (39.0-53.0) % MCV (80.0-100.0) fL MCH (25.0-35.0) pg MCHC (31.0-37.0) g/dL RDW (11.5-15.5) % Plt Count (150-450) k/uL Neutrophils % % Lymphocytes % % Monocytes % % Eosinophils % % Basophils % % Neutrophils # (1.3-7.7) k/uL Lymphocytes # (1.0-4.8) k/uL Monocytes # (0-1.0) k/uL Eosinophils # (0-0.7) k/uL Basophils # (0-0.2) k/uL PT (9.0-12.0) sec INR (<1.2) APTT (22.0-30.0) sec Sodium 131 L (137-145) mmol/L Potassium 4.8 (3.5-5.1) mmol/L Chloride 97 L (98-107) mmol/L Carbon Dioxide 24 (22-30) mmol/L Anion Gap 10 mmol/L BUN 13 (9-20) mg/dL Creatinine 0.65 L (0.66-1.25) mg/dL Est GFR (CKD-EPI)AfAm >90 (>60 ml/min/1.73 sqM) Est GFR (CKD-EPI)NonAf >90 (>60 ml/min/1.73 sqM) Glucose 50 L (74-99) mg/dL POC Glucose (mg/dL) 159 H (75-99) mg/dL POC Glu Screen And Cyclone Repairer ID Mariano Felix Calcium 9.1 (8.4-10.2) mg/dL Total Bilirubin 0.4 (0.2-1.3) mg/dL AST 23 (17-59) U/L ALT 12 (4-49) U/L Alkaline Phosphatase 70 (38-126) U/L Total Protein 7.5 (6.3-8.2) g/dL Albumin 4.1 (3.5-5.0) g/dL Urine Color Colorless Urine Appearance Clear (Clear) Urine pH 6.5 (5.0-8.0) Ur Specific Bracey 1.004 (1.001-1.035) Urine Protein Negative (Negative) Urine Glucose (UA) 2+ H (Negative) Urine Ketones Negative (Negative) Urine Blood Negative (Negative) Urine Nitrite Negative (Negative) Urine Bilirubin Negative (Negative) Urine Urobilinogen <2.0 (<2.0) mg/dL Ur Leukocyte Esterase Negative (Negative) Urine Opiates Screen Not Detected (NotDetected) Ur Oxycodone Screen Not Detected (NotDetected) Urine Methadone Screen Not Detected (NotDetected) Ur Propoxyphene Screen Not Detected (NotDetected) Ur Barbiturates Screen Detected H (NotDetected) U Tricyclic Antidepress Not Detected (NotDetected) Ur Phencyclidine Scrn Not Detected (NotDetected) Ur Amphetamines Screen Not Detected (NotDetected) U Methamphetamines Scrn Not Detected (NotDetected) U Benzodiazepines Scrn Not Detected (NotDetected) Urine Cocaine Screen Not Detected (NotDetected) U Marijuana (THC) Screen Detected H (NotDetected) Serum Alcohol <10 mg/dL 02/12/20 Range/Units 22:44 WBC (3.8-10.6) k/uL RBC (4.30-5.90) m/uL Hgb (13.0-17.5) gm/dL Hct (39.0-53.0) % MCV (80.0-100.0) fL MCH (25.0-35.0) pg MCHC (31.0-37.0) g/dL RDW (11.5-15.5) % Plt Count (150-450) k/uL Neutrophils % % Lymphocytes % % Monocytes % % Eosinophils % % Basophils % % Neutrophils # (1.3-7.7) k/uL Lymphocytes # (1.0-4.8) k/uL Monocytes # (0-1.0) k/uL Eosinophils # (0-0.7) k/uL Basophils # (0-0.2) k/uL PT (9.0-12.0) sec INR (<1.2) APTT (22.0-30.0) sec Sodium (137-145) mmol/L Potassium (3.5-5.1) mmol/L Chloride (98-107) mmol/L Carbon Dioxide (22-30) mmol/L Anion Gap mmol/L BUN (9-20) mg/dL Creatinine (0.66-1.25) mg/dL Est GFR (CKD-EPI)AfAm (>60 ml/min/1.73 sqM) Est GFR (CKD-EPI)NonAf (>60 ml/min/1.73 sqM) Glucose (74-99) mg/dL POC Glucose (mg/dL) 107 H (75-99) mg/dL POC Glu Screen And Cyclone Repairer Vinny Pastranain Calcium (8.4-10.2) mg/dL Total Bilirubin (0.2-1.3) mg/dL AST (17-59) U/L ALT (4-49) U/L Alkaline Phosphatase (38-126) U/L Total Protein (6.3-8.2) g/dL Albumin (3.5-5.0) g/dL Urine Color Urine Appearance (Clear) Urine pH (5.0-8.0) Ur Specific Bracey (1.001-1.035) Urine Protein (Negative) Urine Glucose (UA) (Negative) Urine Ketones (Negative) Urine Blood (Negative) Urine Nitrite (Negative) Urine Bilirubin (Negative) Urine Urobilinogen (<2.0) mg/dL Ur Leukocyte Esterase (Negative) Urine Opiates Screen (NotDetected) Ur Oxycodone Screen (NotDetected) Urine Methadone Screen (NotDetected) Ur Propoxyphene Screen (NotDetected) Ur Barbiturates Screen (NotDetected) U Tricyclic Antidepress (NotDetected) Ur Phencyclidine Scrn (NotDetected) Ur Amphetamines Screen (NotDetected) U Methamphetamines Scrn (NotDetected) U Benzodiazepines Scrn (NotDetected) Urine Cocaine Screen (NotDetected) U Marijuana (THC) Screen (NotDetected) Serum Alcohol mg/dL - EKG Data EKG Comments: Normal sinus rhythm, normal ECG, no signs of acute ischemia, ventricular rate 61, purulence 66, QT 402. Disposition Clinical Impression: Hypoglycemia Disposition: ADMITTED IP TO THIS [facility] Condition: Stable Decision Date: 02/12/20 Decision Time: 23:26
[2020-02-12 21:16] LABS: Glucose,Whole Blood 159 mg/dL (75-99)
[2020-02-12 21:37] LABS: Partial Thromboplastin Time 25.7 sec (22.0-30.0); Prothrombin Time 10.6 sec (9.0-12.0)
[2020-02-12 21:40] LABS: Basophils % (A) 0 %; Eosinophils # (A) 0.2 k/uL (0-0.7); Eosinophils % (A) 3 %; HCT 35.7 % (39.0-53.0); HGB 12.2 gm/dL (13.0-17.5); Lymphocytes % (A) 37 %; MCHC 34.1 g/dL (31.0-37.0); MCV 99.7 fL (80.0-100.0); Monocytes # (A) 0.6 k/uL (0-1.0); Monocytes % (A) 8 %; Neutrophils % (A) 51 %; Platelet Count 271 k/uL (150-450); RBC 3.58 m/uL (4.30-5.90); RDW 13.3 % (11.5-15.5)
[2020-02-12 21:46] LABS: ALT 12 U/L (4-49); AST 23 U/L (17-59); African American GFR (CKD) >90 (>60 ml/min/1.73 sqM); Albumin 4.1 g/dL (3.5-5.0); Alcohol <10 mg/dL; Alkaline Phosphatase 70 U/L (38-126); Anion Gap 10 mmol/L; Blood Urea Nitrogen 13 mg/dL (9-20); Calcium 9.1 mg/dL (8.4-10.2); Carbon Dioxide 24 mmol/L (22-30); Chloride 97 mmol/L (98-107); Glucose 50 mg/dL (74-99); Non-African American GFR(CKD) >90 (>60 ml/min/1.73 sqM); Potassium 4.8 mmol/L (3.5-5.1); Sodium 131 mmol/L (137-145); Total Bilirubin 0.4 mg/dL (0.2-1.3); Total Protein 7.5 g/dL (6.3-8.2)
[2020-02-12 22:29] LABS: Appearance,Urine Clear (Clear); Bilirubin,Urine Negative (Negative); Blood,Urine Negative (Negative); Color,Urine Colorless; Glucose,Urine (UA) 2+ (Negative); Ketones,Urine Negative (Negative); Leukocyte Esterase,Urine Negative (Negative); Nitrite,Urine Negative (Negative); PH, Urine 6.5 (5.0-8.0); Protein,Urine Negative (Negative); Specific Gravity,Urine 1.004 (1.001-1.035); Urobilinogen,Urine <2.0 mg/dL (<2.0)
[2020-02-12 22:46] LABS: Amphetamine Screen,Urine Not Detected (NotDetected); Barbiturate Screen,Urine Detected (NotDetected); Benzodiazepines Screen,Urine Not Detected (NotDetected); Cocaine Screen,Urine Not Detected (NotDetected); Methadone Screen, Urine Not Detected (NotDetected); Opiate Screen,Urine Not Detected (NotDetected); Oxycodone Screen, Urine Not Detected (NotDetected); Phencyclidine Screen,Urine Not Detected (NotDetected); Tricyclic Antidepressant,Urine Not Detected (NotDetected); Urn Cannabinoid Scrn Detected (NotDetected)
[2020-02-12 22:46] LABS: Glucose,Whole Blood 107 mg/dL (75-99)
[2020-02-12] MEDS ORDERED: NALOXONE 0.4 MG/ML 1 ML VIAL IV PRN (23:22)
[2020-02-12] MEDS ORDERED: ACETAMINOPHEN TAB 325 MG TAB PO PRN (23:22)
[2020-02-12] MEDS ORDERED: ONDANSETRON 4 MG/2 ML VIAL IVP PRN (23:22)
[2020-02-12] MEDS ORDERED: DEXTROSE 5%-0.45% NACL 1,000 ML IV SCH (23:30)
[2020-02-12 23:55] LABS: Glucose,Whole Blood 110 mg/dL (75-99)
[2020-02-13 01:20] LABS: Glucose,Whole Blood 150 mg/dL (75-99)
[2020-02-13 07:13] LABS: Glucose,Whole Blood 240 mg/dL (75-99)
[2020-02-13] MEDS: INSULIN ASPART (NovoLOG) 100 UNIT/ML VIAL SQ SCH ×4 (07:53→20:43)
[2020-02-13 08:06] LABS: Basophils % (A) 0 %; Eosinophils # (A) 0.1 k/uL (0-0.7); Eosinophils % (A) 2 %; HCT 37.5 % (39.0-53.0); HGB 12.6 gm/dL (13.0-17.5); Lymphocytes # (A) 1.1 k/uL (1.0-4.8); Lymphocytes % (A) 25 %; MCH 33.5 pg (25.0-35.0); MCHC 33.5 g/dL (31.0-37.0); Mean Platelet Volume 6.3; Monocytes # (A) 0.2 k/uL (0-1.0); Monocytes % (A) 5 %; Neutrophils % (A) 67 %; Platelet Count 303 k/uL (150-450); RBC 3.75 m/uL (4.30-5.90); RDW 13.4 % (11.5-15.5); WBC 4.5 k/uL (3.8-10.6)
[2020-02-13 08:17] LABS: African American GFR (CKD) >90 (>60 ml/min/1.73 sqM); Anion Gap 8 mmol/L; Blood Urea Nitrogen 9 mg/dL (9-20); Carbon Dioxide 27 mmol/L (22-30); Chloride 96 mmol/L (98-107); Glucose 219 mg/dL (74-99); Non-African American GFR(CKD) >90 (>60 ml/min/1.73 sqM); Potassium 4.3 mmol/L (3.5-5.1); Sodium 131 mmol/L (137-145)
[2020-02-13 11:43] LABS: Glucose,Whole Blood 176 mg/dL (75-99)
[2020-02-13] MEDS ORDERED: SODIUM CHLORIDE 0.9% 1,000 ML IV SCH (12:00)
[2020-02-13 15:00] VITALS: BMI 21.9
[2020-02-13] MEDS ORDERED: tiZANidine 4 MG TAB PO PRN (16:51)
[2020-02-13] MEDS ORDERED: HYDROcodone/APAP 5-325MG 1 EACH TAB PO PRN (16:58)
[2020-02-13] MEDS ORDERED: HYDROmorphone 0.5 MG/0.5 ML SYRINGE IVP PRN (16:58)
[2020-02-13 17:03] LABS: Glucose,Whole Blood 113 mg/dL (75-99)
--- NOTE | 2020-02-13 17:55 | XR ---
EXAMINATION TYPE: XR chest 1V portable DATE OF EXAM: 02/13/2020 COMPARISON: 04/04/2018 HISTORY: Short of breath TECHNIQUE: FINDINGS: Heart is normal. Lungs are clear of consolidation. There is no heart failure. There are no hilar masses. Thoracic aorta is atheromatous. Bony thorax is intact. IMPRESSION: No active cardiopulmonary disease. Normal heart. No change.
--- NOTE | 2020-02-13 18:05 | CT ---
EXAMINATION TYPE: CT brain wo con DATE OF EXAM: 02/13/2020 COMPARISON: 03/10/2012 HISTORY: Agitation and history of prior CVA CT DLP: 1064.3 mGycm Automated exposure control for dose reduction was used. There is cerebral cortical atrophy. There is no mass effect nor midline shift. There is no sign of in tracranial hemorrhage. There is some mild cortical hypodensity in the left posterior occipital lobe. The calvarium is intact. IMPRESSION: Cerebral atrophy. There is some atrophy and cortical hypodensity involving the posterior occipital lo bes on the left side more than the right that is consistent with encephalomalacia. This has progresse d compared to old exam. No acute intracranial abnormality.
[2020-02-13] MEDS: DEXTROSE 5%-0.45% NACL 1,000 ML IV SCH (18:11)
[2020-02-13 19:06] LABS: Glucose,Whole Blood 172 mg/dL (75-99)
[2020-02-13] MEDS: HEPARIN SODIUM,PORCINE 5,000 UNIT/ML 1 ML VIAL SQ SCH (20:43)
[2020-02-13] MEDS: PRIMIDONE 50 MG TAB PO SCH (20:43)
[2020-02-13] MEDS ORDERED: GABAPENTIN 400 MG CAP PO SCH (21:00)
[2020-02-13] MEDS ORDERED: GABAPENTIN 300 MG CAP PO SCH (21:00)
[2020-02-13] MEDS ORDERED: ATORVASTATIN 10 MG TAB PO SCH (21:00)
--- NOTE | 2020-02-14 01:01 | HP ---
HISTORY AND PHYSICAL DATE OF SERVICE: 02/13/2020 CHIEF COMPLAINT: Change in mental status and dehydration. HISTORY OF PRESENT ILLNESS: This 64-year-old gentleman with a past medical history of multiple medical problems including GERD, CVA, TIA, hypertension, hyperlipidemia, seizure disorder, history of neuropathy and diabetes mellitus being followed by Dr. Morse in the outpatient setting was admitted to [facility] with complaints of change in mental status. The neighbors called EMS. The patient was acting weird. Blood sugars are very low around 60 and after oral glucose, patient improved. Patient taken to [facility] and the patient apparently did not check the blood sugars any time. The patient also said the patient is not willing to take any insulin. The patient was given dextrose drip and sugars improved and patient has been closely monitored. At this time, there is no history of fever, rigors. No history of headache, loss of consciousness or seizures. PAST MEDICAL HISTORY: Diabetes mellitus type 2, history of GERD, CVA, TIA, hyperlipidemia as well as neurological disorder, seizure disorder. MEDICATIONS: Medications are: 1. Actos 30 mg with supper. 2. Zanaflex 4 mg b.i.d. 3. Januvia 100 mg supper. 4. Metformin 1000 mg p.o. b.i.d. 5. Primidone 150 mg p.o. b.i.d. 6. Mobic 15 mg p.o. daily. 7. Gabapentin 800 mg at bedtime and 600 mg p.o. b.i.d. 8. Cymbalta 60 mg b.i.d. 9. Lipitor 10 mg at bedtime. 10.Aspirin 325 mg daily. ALLERGIES: None. FAMILY HISTORY: No history of heart disease or strokes in the family. SOCIAL HISTORY: History of smoking. No history of current smoking or alcohol intake. REVIEW OF SYSTEMS: ENT: No diminished hearing or diminished vision. CARDIOVASCULAR SYSTEM: No angina or palpitations. RESPIRATORY SYSTEM: As mentioned earlier. GI: No nausea. : No dysuria. NERVOUS SYSTEM; No numbness or weakness. ALLERGY/IMMUNOLOGY: No asthma or hayfever. MUSCULOSKELETAL: As mentioned earlier. HEMATOLOGY/ONCOLOGY: No history of anemia. ENDOCRINE: Diabetes. CONSTITUTIONAL: As mentioned earlier. DERMATOLOGY: Negative. RHEUMATOLOGY: Negative. PSYCHIATRY: As mentioned earlier. PHYSICAL EXAMINATION: The patient is alert and oriented x3. Pulse is 67, blood pressure 180/76, respiration 20, temperature 98 degrees, pulse ox 100% on room air. HEENT: Conjunctivae normal. Oral mucosa moist. NECK; No jugular venous distention. No carotid bruit. No lymph node enlargement. CARDIOVASCULAR: S1, S2 muffled. RESPIRATORY: Breath sounds diminished in the bases. No rhonchi. No crackles. ABDOMEN: Soft, nontender. No mass palpable. LEGS: No edema, no swelling. NERVOUS SYSTEM: Higher function as mentioned earlier. Moves all 4 limbs. No focal deficits. LYMPHATICS: No lymphadenopathy of the neck, axillae or groin. SKIN: No ulcer, rash or bleeding. JOINTS: No active deforming arthropathy. LABS: WBC 4.5, hemoglobin 12.6, sodium 131. Sugars are 176. ASSESSMENT: 1. Change in mental status, acute metabolic encephalopathy, possibly secondary to hypoglycemia. 2. Diabetes mellitus type 2 with uncontrolled hypoglycemia. 3. Hypertensive urgency. 4. Hyponatremia. 5. Anemia, normocytic anemia of chronic disease. 6. History of noncompliance with testing. 8. History of cerebrovascular accident, transient ischemic attack. 9. Gastroesophageal reflux disease. 10.Hyperlipidemia. 11.History of seizure disorder. 12.History of peripheral neuropathy. 13.History of remote history of nicotine dependence. 14.NO CODE, NO CPR, NO VENT. RECOMMENDATIONS AND DISCUSSION: This 64-year-old gentleman who presented with multiple complex medical issues, we will monitor the patient closely, continue the current medications and symptomatic treatment. I would recommend basic labs including chest x-ray and CT scan of the brain to complete the workup. Repeat labs. Otherwise, diabetic education consultation. Importance of testing is stressed with the patient. Prognosis guarded. Further recommendations to follow. MMODL / IJN: [id number] / KARLI
[2020-02-14 05:59] VITALS: TEMP 97.6
[2020-02-14 06:50] LABS: Glucose,Whole Blood 190 mg/dL (75-99)
[2020-02-14 07:05] LABS: Basophils % (A) 0 %; Eosinophils # (A) 0.1 k/uL (0-0.7); Eosinophils % (A) 1 %; HCT 39.8 % (39.0-53.0); HGB 13.5 gm/dL (13.0-17.5); Lymphocytes # (A) 1.7 k/uL (1.0-4.8); Lymphocytes % (A) 30 %; MCH 33.7 pg (25.0-35.0); MCV 99.1 fL (80.0-100.0); Mean Platelet Volume 6.3; Monocytes # (A) 0.4 k/uL (0-1.0); Monocytes % (A) 7 %; Neutrophils # (A) 3.4 k/uL (1.3-7.7); Neutrophils % (A) 60 %; Platelet Count 336 k/uL (150-450); RBC 4.02 m/uL (4.30-5.90); RDW 13.6 % (11.5-15.5); WBC 5.7 k/uL (3.8-10.6)
[2020-02-14 07:14] LABS: African American GFR (CKD) >90 (>60 ml/min/1.73 sqM); Anion Gap 10 mmol/L; Blood Urea Nitrogen 6 mg/dL (9-20); Calcium 9.4 mg/dL (8.4-10.2); Carbon Dioxide 26 mmol/L (22-30); Chloride 96 mmol/L (98-107); Glucose 205 mg/dL (74-99); Non-African American GFR(CKD) >90 (>60 ml/min/1.73 sqM); Potassium 4.3 mmol/L (3.5-5.1); Sodium 132 mmol/L (137-145)
[2020-02-14] MEDS: INSULIN ASPART (NovoLOG) 100 UNIT/ML VIAL SQ SCH ×2 (08:04→12:09)
[2020-02-14] MEDS ORDERED: GABAPENTIN 300 MG CAP PO SCH (09:00)
[2020-02-14] MEDS ORDERED: MELOXICAM 7.5 MG TAB PO SCH (09:00)
[2020-02-14] MEDS ORDERED: ASPIRIN 325 MG TAB PO SCH (09:00)
[2020-02-14] MEDS ORDERED: DULoxetine HCL 60 MG CAPSULE.DR PO SCH (09:00)
[2020-02-14 09:03] LABS: Hemoglobin A1C 6.3 % (4.0-6.0)
[2020-02-14] MEDS: HEPARIN SODIUM,PORCINE 5,000 UNIT/ML 1 ML VIAL SQ SCH (09:15)
[2020-02-14] MEDS: PRIMIDONE 50 MG TAB PO SCH (09:17)
[2020-02-14] MEDS: DEXTROSE 5%-0.45% NACL 1,000 ML IV SCH (09:19)
[2020-02-14 11:43] LABS: Glucose,Whole Blood 236 mg/dL (75-99)
[2020-02-14 12:54] VITALS: BP 152/81; PULSE 64; RESP 20
[2020-02-14 13:54] LABS: Glucose,Whole Blood 205 mg/dL (75-99)
[2020-02-14 14:35] LABS: Glucose,Whole Blood 236 mg/dL (75-99)
--- NOTE | 2020-02-14 23:29 | DS ---
DISCHARGE SUMMARY DATE OF SERVICE: 02/14/2020 FINAL DIAGNOSES: 1. Change in mental status, acute metabolic encephalopathy, possibly secondary to hypoglycemia. 2. Diabetes mellitus, type 2, uncontrolled with hypoglycemia. 3. Hypertensive urgency. 4. Hyponatremia. 5. Anemia, normocytic anemia of chronic disease. 6. History of noncompliance with testing. 7. History of cerebrovascular accident, transient ischemic attack. 8. Gastroesophageal reflux disease. 9. Hyperlipidemia. 10.Seizure disorder. 11.History of peripheral neuropathy. 12.Remote history of nicotine dependence. 13.NO CODE, NO CPR, NO VENT. DISCHARGE DISPOSITION: The patient will be discharged in stable condition with guarded prognosis. HISTORY OF PRESENT ILLNESS: This 64-year-old gentleman with a past medical history of multiple medical problems, was admitted with change in mental status. The patient's sugars were very low. The patient was monitored closely. The sugars improved, but the patient was not willing to stay, so the patient will be discharged for further evaluation and treatment. Currently sugar is elevated at 190, 236. dextrose also given. On exam, vitals are stable. CARDIOVASCULAR SYSTEM: S1, S2 muffled. ABDOMEN: Soft. NERVOUS SYSTEM: No focal deficit. The patient will be discharged in stable condition with guarded prognosis. DISCHARGE ADVICE AND MEDICATIONS: 1. Diet is consistent-carb. 2. Activity limited to followup. 3. Accu-Cheks before meals and at bedtime, read to Dr. Morse. 4. Actos 30 mg Friday. 5. Aspirin 320 mg daily. 6. Cymbalta 60 mg at bedtime. 7. Gabapentin 600 mg p.o. b.i.d. and 800 mg at bedtime. 8. Januvia 100 mg with supper. 9. Lipitor 10 mg at bedtime. 10.Metformin 1000 mg b.i.d. 11.Mobic 15 mg p.o. daily. 12.Primidone 150 mg p.o. b.i.d. 13.Zanaflex 4 mg b.i.d. p.r.n. Once again, the patient will be discharged in stable condition with guarded prognosis. MMODL / IJN: [id number] / MTDD
== END 2020-02-14 15:46 | disposition home or self-care (01) | DRG 637 ==
LOC: EC 20:43 → 5NMEDONC 23:26 → OBSVTOIN 02-14 08:45
PROVIDERS: ADMIT Internal Medicine; ATTEND Internal Medicine
DX: E11.649 Type 2 diabetes mellitus with hypoglycemia without coma (principal); G93.41 Metabolic encephalopathy; E87.1 Hypo-osmolality and hyponatremia; D63.8 Anemia in other chronic diseases classified elsewhere; E11.40 Type 2 diabetes mellitus with diabetic neuropathy, unspecified; I16.0 Hypertensive urgency; I10 Essential (primary) hypertension; K21.9 Gastro-esophageal reflux disease without esophagitis; G40.909 Epilepsy, unspecified, not intractable, without status epilepticus; E86.0 Dehydration; E78.5 Hyperlipidemia, unspecified; Z11.59 Encounter for screening for other viral diseases; Z79.84 Long term (current) use of oral hypoglycemic drugs; Z79.899 Other long term (current) drug therapy; Z79.82 Long term (current) use of aspirin; Z86.73 Personal history of transient ischemic attack (TIA), and cerebral infarction without residual deficits; Z87.891 Personal history of nicotine dependence; Z66 Do not resuscitate; Z91.19 Patient's noncompliance with other medical treatment and regimen
CPT/HCPCS: 36415; 70450; 71045; 80048; 80053; 80306; 80320; 81003; 83036; 85025; 85610; 85730; 93005; 96361; 96374; 99285

== ENCOUNTER 2020-03-13 03:51 | Observation (INO) | payer MEDICARE, OTHER ==
[2020-03-13 04:37] LABS: Glucose,Whole Blood 237 mg/dL (75-99)
[2020-03-13 05:12] LABS: Basophils % (A) 0 %; Eosinophils # (A) 0.1 k/uL (0-0.7); Eosinophils % (A) 1 %; HCT 42.3 % (39.0-53.0); HGB 14.2 gm/dL (13.0-17.5); Lymphocytes # (A) 1.6 k/uL (1.0-4.8); Lymphocytes % (A) 16 %; MCH 32.5 pg (25.0-35.0); MCHC 33.5 g/dL (31.0-37.0); Mean Platelet Volume 6.5; Monocytes # (A) 0.5 k/uL (0-1.0); Monocytes % (A) 5 %; Neutrophils # (A) 7.9 k/uL (1.3-7.7); Neutrophils % (A) 77 %; Platelet Count 304 k/uL (150-450); RBC 4.36 m/uL (4.30-5.90); RDW 12.8 % (11.5-15.5); WBC 10.3 k/uL (3.8-10.6)
[2020-03-13 05:24] LABS: ALT 13 U/L (4-49); AST 22 U/L (17-59); African American GFR (CKD) >90 (>60 ml/min/1.73 sqM); Albumin 4.7 g/dL (3.5-5.0); Alkaline Phosphatase 108 U/L (38-126); Amylase 132 U/L (30-110); Anion Gap 12 mmol/L; Blood Urea Nitrogen 14 mg/dL (9-20); Calcium 9.8 mg/dL (8.4-10.2); Carbon Dioxide 25 mmol/L (22-30); Chloride 93 mmol/L (98-107); Glucose 236 mg/dL (74-99); Non-African American GFR(CKD) >90 (>60 ml/min/1.73 sqM); Potassium 4.5 mmol/L (3.5-5.1); Sodium 130 mmol/L (137-145); Total Bilirubin 0.3 mg/dL (0.2-1.3); Total Protein 8.2 g/dL (6.3-8.2)
--- NOTE | 2020-03-13 05:35 | XR ---
EXAMINATION TYPE: XR abdomen acute w cxr DATE OF EXAM: 03/13/2020 COMPARISON: Chest x-ray 02/13/2020 HISTORY: Nausea and vomiting TECHNIQUE: 4 views FINDINGS: There is no heart failure nor confluent pneumonic infiltrate. Costophrenic angles are clear . The bony thorax is intact. There is mild pulmonary scarring at the lung apices. Heart size is yuly l. There is no sign of intestinal obstruction or pneumoperitoneum. Fecal pattern is normal. There is no evidence of a mass. There are no pathologic calcifications over the kidneys. IMPRESSION: Nonacute abdomen. No active cardiopulmonary disease. Chest unchanged compared to old exam .
[2020-03-13 06:03] LABS: Appearance,Urine Clear (Clear); Bilirubin,Urine Negative (Negative); Blood,Urine Negative (Negative); Color,Urine Light Yellow; Glucose,Urine (UA) 4+ (Negative); Ketones,Urine 1+ (Negative); Leukocyte Esterase,Urine Negative (Negative); Nitrite,Urine Negative (Negative); Protein,Urine Trace (Negative); Specific Gravity,Urine 1.007 (1.001-1.035); Urobilinogen,Urine <2.0 mg/dL (<2.0)
[2020-03-13] MEDS ORDERED: METOCLOPRAMIDE 5 MG/ML 2 ML VIAL IVP STA (06:19)
--- NOTE | 2020-03-13 06:19 | ED ---
Nausea/Vomiting/Diarrhea HPI - General Source: patient, EMS Mode of arrival: EMS <Melvin Hyde - Last Filed: 03/13/20 06:18> <Ariadne Carter - Last Filed: 03/14/20 16:01> - General Chief complaint: Nausea/Vomiting/Diarrhea Stated complaint: Vomiting Time Seen by Provider: 03/13/20 04:12 - Related Data Home Medications Medication Instructions Recorded Confirmed Aspirin 325 mg PO DAILY 12/16/14 03/13/20 Atorvastatin [Lipitor] 10 mg PO HS 12/16/14 03/13/20 Primidone 150 mg PO BID 12/16/14 03/13/20 sitaGLIPtin [Januvia] 100 mg PO W/SUPPER 12/16/14 03/13/20 Gabapentin 600 mg PO BID 09/17/16 03/13/20 metFORMIN HCL 1,000 mg PO BID 09/17/16 03/13/20 Meloxicam [Mobic] 15 mg PO DAILY 02/13/20 03/13/20 Pioglitazone [Actos] 30 mg PO W/SUPPER 02/13/20 03/13/20 tiZANidine [Zanaflex] 4 mg PO BID PRN 02/13/20 03/13/20 DULoxetine HCL [Cymbalta] 30 mg PO DAILY 03/13/20 03/13/20 Glimepiride [Amaryl] 4 mg PO BID 03/13/20 03/13/20 Previous Rx's Medication Instructions Recorded Ibuprofen 600 mg PO Q8H PRN #20 tab 03/14/20 Allergies Allergy/AdvReac Type Severity Reaction Status Date / Time No Known Allergies Allergy Verified 03/13/20 07:55 Review of Systems ROS Other: All systems not noted in ROS Statement are negative. <Melvin Hyde - Last Filed: 03/13/20 06:18> ROS Other: All systems not noted in ROS Statement are negative. <Ariadne Carter - Last Filed: 03/14/20 16:01> ROS Statement: Those systems with pertinent positive or pertinent negative responses have been documented in the HPI. Past Medical History Past Medical History: CVA/TIA, GERD/Reflux, Hyperlipidemia, Neurologic Disorder, Seizure Disorder History of Any Multi-Drug Resistant Organisms: None Reported Past Surgical History: Orthopedic Surgery Additional Past Surgical History / Comment(s): neuropathy, last seizure 1986, "born with convulsions", lymph nodes removed left cervical, left knee surgery Past Psychological History: No Psychological Hx Reported Smoking Status: Former smoker Past Alcohol Use History: Rare Past Drug Use History: None Reported <Melvin Hyde - Last Filed: 03/13/20 06:18> Course Vital Signs 03/13/20 03/13/20 03/13/20 03:55 05:00 06:00 Temperature 97.4 F L Pulse Rate 69 58 L 64 Respiratory 16 16 16 Rate Blood Pressure 185/106 193/88 183/95 O2 Sat by Pulse 100 100 100 Oximetry 03/13/20 03/13/20 03/13/20 07:30 08:00 09:00 Temperature Pulse Rate 64 64 64 Respiratory 16 16 16 Rate Blood Pressure 179/96 182/100 180/91 O2 Sat by Pulse 100 100 100 Oximetry 03/13/20 03/13/20 03/13/20 09:30 10:30 11:10 Temperature Pulse Rate 64 67 67 Respiratory 16 18 18 Rate Blood Pressure 187/92 189/88 197/87 O2 Sat by Pulse 100 97 97 Oximetry Medical Decision Making - Lab Data Result diagrams: 03/13/20 04:45 03/13/20 04:45 - EKG Data -: EKG Interpreted by Me EKG shows normal: sinus rhythm, axis (Normal), intervals (Normal), QRS complexes (Normal), ST-T waves (Normal) Rate: normal (Rate 63 bpm) <Melvin Hyde - Last Filed: 03/13/20 06:18> - Lab Data Result diagrams: 03/14/20 07:04 03/14/20 07:04 <Ariadne Carter - Last Filed: 03/14/20 16:01> - Medical Decision Making I took over the patient's care at 8:30 am. I did review CT which demonstrates a left-sided ureteral stone measuring 3.5 mm. The patient is reevaluated and continues to have pain and nausea. I did provide him with a dose of Toradol and 4 mg of Zofran. Patient will be reevaluated in regards to symptoms improvement. - 9:35 am I evaluated the patient after pain and antiemetic medication and the patient continues to dry heave in the room. States his pain is 2 out of 10. I did discuss the case with Dr. Monaco who agreed to admit the patient due to his intractable symptoms. He requested I make the patient nothing by mouth after midnight. I discussed this with the patient who agreed to the treatment plan (Ariadne Carter) - Lab Data Lab Results 03/13/20 03/13/20 03/13/20 Range/Units 04:36 04:45 04:45 WBC 10.3 (3.8-10.6) k/uL RBC 4.36 (4.30-5.90) m/uL Hgb 14.2 (13.0-17.5) gm/dL Hct 42.3 (39.0-53.0) % MCV 97.0 (80.0-100.0) fL MCH 32.5 (25.0-35.0) pg MCHC 33.5 (31.0-37.0) g/dL RDW 12.8 (11.5-15.5) % Plt Count 304 (150-450) k/uL Neutrophils % 77 % Lymphocytes % 16 % Monocytes % 5 % Eosinophils % 1 % Basophils % 0 % Neutrophils # 7.9 H (1.3-7.7) k/uL Lymphocytes # 1.6 (1.0-4.8) k/uL Monocytes # 0.5 (0-1.0) k/uL Eosinophils # 0.1 (0-0.7) k/uL Basophils # 0.0 (0-0.2) k/uL Sodium 130 L (137-145) mmol/L Potassium 4.5 (3.5-5.1) mmol/L Chloride 93 L (98-107) mmol/L Carbon Dioxide 25 (22-30) mmol/L Anion Gap 12 mmol/L BUN 14 (9-20) mg/dL Creatinine 0.76 (0.66-1.25) mg/dL Est GFR (CKD-EPI)AfAm >90 (>60 ml/min/1.73 sqM) Est GFR (CKD-EPI)NonAf >90 (>60 ml/min/1.73 sqM) Glucose 236 H (74-99) mg/dL POC Glucose (mg/dL) 237 H (75-99) mg/dL POC Glu Liquor Establishment Manager ID Consuelo Quan Calcium 9.8 (8.4-10.2) mg/dL Total Bilirubin 0.3 (0.2-1.3) mg/dL AST 22 (17-59) U/L ALT 13 (4-49) U/L Alkaline Phosphatase 108 (38-126) U/L Total Protein 8.2 (6.3-8.2) g/dL Albumin 4.7 (3.5-5.0) g/dL Amylase 132 H (30-110) U/L Lipase 229 (23-300) U/L Urine Color Urine Appearance (Clear) Urine pH (5.0-8.0) Ur Specific [place] (1.001-1.035) Urine Protein (Negative) Urine Glucose (UA) (Negative) Urine Ketones (Negative) Urine Blood (Negative) Urine Nitrite (Negative) Urine Bilirubin (Negative) Urine Urobilinogen (<2.0) mg/dL Ur Leukocyte Esterase (Negative) 03/13/20 Range/Units 05:47 WBC (3.8-10.6) k/uL RBC (4.30-5.90) m/uL Hgb (13.0-17.5) gm/dL Hct (39.0-53.0) % MCV (80.0-100.0) fL MCH (25.0-35.0) pg MCHC (31.0-37.0) g/dL RDW (11.5-15.5) % Plt Count (150-450) k/uL Neutrophils % % Lymphocytes % % Monocytes % % Eosinophils % % Basophils % % Neutrophils # (1.3-7.7) k/uL Lymphocytes # (1.0-4.8) k/uL Monocytes # (0-1.0) k/uL Eosinophils # (0-0.7) k/uL Basophils # (0-0.2) k/uL Sodium (137-145) mmol/L Potassium (3.5-5.1) mmol/L Chloride (98-107) mmol/L Carbon Dioxide (22-30) mmol/L Anion Gap mmol/L BUN (9-20) mg/dL Creatinine (0.66-1.25) mg/dL Est GFR (CKD-EPI)AfAm (>60 ml/min/1.73 sqM) Est GFR (CKD-EPI)NonAf (>60 ml/min/1.73 sqM) Glucose (74-99) mg/dL POC Glucose (mg/dL) (75-99) mg/dL POC Glu Liquor Establishment Manager ID Calcium (8.4-10.2) mg/dL Total Bilirubin (0.2-1.3) mg/dL AST (17-59) U/L ALT (4-49) U/L Alkaline Phosphatase (38-126) U/L Total Protein (6.3-8.2) g/dL Albumin (3.5-5.0) g/dL Amylase (30-110) U/L Lipase (23-300) U/L Urine Color Light Yellow Urine Appearance Clear (Clear) Urine pH 8.0 (5.0-8.0) Ur Specific [place] 1.007 (1.001-1.035) Urine Protein Trace H (Negative) Urine Glucose (UA) 4+ H (Negative) Urine Ketones 1+ H (Negative) Urine Blood Negative (Negative) Urine Nitrite Negative (Negative) Urine Bilirubin Negative (Negative) Urine Urobilinogen <2.0 (<2.0) mg/dL Ur Leukocyte Esterase Negative (Negative) Disposition <Melvin Hyde - Last Filed: 03/13/20 06:18> Is patient prescribed a controlled substance at d/c from ED?: No Decision to Admit Reason: Admit from EC Decision Date: 03/13/20 Decision Time: 11:03 <Ariadne Carter - Last Filed: 03/14/20 16:01> Clinical Impression: Vomiting, Ureteral stone with hydronephrosis Disposition: ADMITTED IP TO THIS [facility] Condition: Stable
[2020-03-13] MEDS ORDERED: SODIUM CHLORIDE 0.9% 1,000 ML IV ONE (06:20)
[2020-03-13] MEDS ORDERED: MORPHINE SULFATE 4 MG/ML SYRINGE IV STA (08:01)
--- NOTE | 2020-03-13 09:16 | CT ---
EXAMINATION TYPE: CT abdomen pelvis wo con DATE OF EXAM: 03/13/2020 COMPARISON: 08/05/2011 HISTORY: Acute abdominal pain, left flank pain CT DLP: 432.7 mGycm Examination of the solid and hollow viscera is limited given the lack of contrast. FINDINGS: LUNG BASES: No evidence for nodule. No evidence for infiltrate. LIVER/GB: The gallbladder is unremarkable. Multiple small hypoattenuating hepatic lesions may reflect small cysts. PANCREAS: No pancreatic mass identified. No inflammatory process seen. SPLEEN: No evidence for splenomegaly. No intrasplenic lesions seen. ADRENALS: No adrenal nodules identified. No evidence for thickening. KIDNEYS: Moderate left-sided hydroureteronephrosis with left renal edema and perinephric stranding. D istal left ureteral calculus measuring approximately 3.5 mm. Additional left-sided renal calculi bronson uring up to 8.5 mm. No right-sided calculi seen. Underlying infection is difficult to exclude. BOWEL: Appendix has a normal appearance. No evidence of bowel obstruction. No inflammatory process. S mall hiatal hernia noted. Lymph nodes: No evidence for adenopathy greater than 1 cm. Abdominal aorta: Atheromatous changes seen. No evidence for aneurysm. Genital organs: No significant abnormality. Other: No significant abnormality. IMPRESSION: Moderate left-sided hydroureteronephrosis with left renal edema and perinephric stranding. Distal lef t ureteral calculus measuring approximately 3.5 mm. Additional left-sided renal calculi measuring up to 8.5 mm. Underlying infection is difficult to exclude.
[2020-03-13] MEDS ORDERED: KETOROLAC 30 MG/ML 1 ML VIAL IVP STA (09:34)
[2020-03-13] MEDS ORDERED: ONDANSETRON 4 MG/2 ML VIAL IVP STA (09:34)
[2020-03-13 10:35] VITALS: RESP 18
[2020-03-13] MEDS ORDERED: NALOXONE 0.4 MG/ML 1 ML VIAL IV PRN (11:03)
[2020-03-13] MEDS ORDERED: KETOROLAC 30 MG/ML 1 ML VIAL IVP PRN (11:03)
[2020-03-13] MEDS ORDERED: MORPHINE SULFATE 4 MG/ML SYRINGE IV PRN (11:03)
[2020-03-13] MEDS ORDERED: ONDANSETRON 4 MG/2 ML VIAL IVP PRN (11:03)
[2020-03-13] MEDS ORDERED: hydrALAZINE HCL 20 MG/ML 1 ML VIAL IVP STA (11:05)
[2020-03-13] MEDS ORDERED: SODIUM CHLORIDE 0.9% 1,000 ML IV SCH (11:15)
[2020-03-13] MEDS ORDERED: HYDROmorphone 1 MG/ML 1 ML SYRINGE IVP PRN (12:57)
[2020-03-13] MEDS ORDERED: METOCLOPRAMIDE 5 MG/ML 2 ML VIAL IVP PRN (12:58)
[2020-03-13] MEDS: SODIUM CHLORIDE 0.9% 1,000 ML IV SCH ×2 (14:09→20:44)
--- NOTE | 2020-03-13 15:01 | P.GSHP ---
History of Present Illness H&P Date: 03/13/20 Chief Complaint: Left ureteral calculi Mr. Harrell if a 64 yo male admitted to the hospital with left sided abdominal pain that us associated with N/V. He underwent a CT which showed a 3 mm left distal ureteral stone with hydronephrosis. He also had evidence of non obstructing renal calculi on left. Denies any hx or stone. Denies any gross hematuria, dysuria, fever/chills. In the ED he had intractable pain and N/V, and he was subsequently admitted to the hospital for pain control. - Constitutional Constitutional: Denies chills, Denies fever - EENT Ears, nose, mouth and throat: Denies dysphagia - Cardiovascular Cardiovascular: Denies chest pain, Denies dyspnea on exertion - Respiratory Respiratory: Denies cough, Denies dyspnea - Gastrointestinal Gastrointestinal: Reports abdominal pain, Reports nausea, Reports vomiting - Genitourinary (Female) Genitourinary: Reports flank pain, Reports kidney stones, Denies dysuria, Denies hematuria - Genitourinary (Male) Genitourinary: Reports flank pain, Reports kidney stones, Denies dysuria, Denies urinary retention - Neurological Neurological: Denies syncope, Denies weakness Past Medical History Past Medical History: CVA/TIA, GERD/Reflux, Hyperlipidemia, Neurologic Disorder, Seizure Disorder Additional Past Medical History / Comment(s): carpal tunnel neuropath History of Any Multi-Drug Resistant Organisms: None Reported Past Surgical History: Orthopedic Surgery Additional Past Surgical History / Comment(s): neuropathy, last seizure 1986, "born with convulsions", lymph nodes removed left cervical, left knee surgery Past Anesthesia/Blood Transfusion Reactions: No Reported Reaction Past Psychological History: No Psychological Hx Reported Smoking Status: Former smoker Past Alcohol Use History: Rare Past Drug Use History: None Reported Medications and Allergies Home Medications Medication Instructions Recorded Confirmed Type RX: Aspirin 325 mg PO DAILY 12/16/14 03/13/20 History RX: Atorvastatin [Lipitor] 10 mg PO HS 12/16/14 03/13/20 History RX: Primidone 150 mg PO BID 12/16/14 03/13/20 History RX: sitaGLIPtin [Januvia] 100 mg PO W/SUPPER 12/16/14 03/13/20 History RX: Gabapentin 600 mg PO BID 09/17/16 03/13/20 History RX: metFORMIN HCL 1,000 mg PO BID 09/17/16 03/13/20 History RX: Meloxicam [Mobic] 15 mg PO DAILY 02/13/20 03/13/20 History RX: Pioglitazone [Actos] 30 mg PO W/SUPPER 02/13/20 03/13/20 History RX: tiZANidine [Zanaflex] 4 mg PO BID PRN 02/13/20 03/13/20 History DULoxetine HCL [Cymbalta] 30 mg PO DAILY 03/13/20 03/13/20 History RX: Glimepiride [Amaryl] 4 mg PO BID 03/13/20 03/13/20 History Allergies Allergy/AdvReac Type Severity Reaction Status Date / Time No Known Allergies Allergy Verified 03/13/20 07:55 Surgical - Exam Vital Signs Temp Pulse Resp BP Pulse Ox 97.4 F L 69 16 185/106 100 03/13/20 03:55 03/13/20 03:55 03/13/20 03:55 03/13/20 03:55 03/13/20 03:55 - General well developed, well nourished, moderate distress, moderate pain - Eyes PERRL, normal ocular movement, no pale - ENT normal mucosa, no hearing loss - Respiratory normal expansion, normal respiratory effort - Abdomen Abdomen: soft, tender (left abdomen ), no rigid - Psychiatric oriented to time, oriented to person, oriented to place, speech is normal Results - Labs 03/13/20 04:45 03/13/20 04:45 Abnormal Lab Results - Last 24 Hours (Table) 03/13/20 03/13/20 03/13/20 Range/Units 04:36 04:45 04:45 Neutrophils # 7.9 H (1.3-7.7) k/uL Sodium 130 L (137-145) mmol/L Chloride 93 L (98-107) mmol/L Glucose 236 H (74-99) mg/dL POC Glucose (mg/dL) 237 H (75-99) mg/dL Amylase 132 H (30-110) U/L Urine Protein (Negative) Urine Glucose (UA) (Negative) Urine Ketones (Negative) 03/13/20 Range/Units 05:47 Neutrophils # (1.3-7.7) k/uL Sodium (137-145) mmol/L Chloride (98-107) mmol/L Glucose (74-99) mg/dL POC Glucose (mg/dL) (75-99) mg/dL Amylase (30-110) U/L Urine Protein Trace H (Negative) Urine Glucose (UA) 4+ H (Negative) Urine Ketones 1+ H (Negative) Diabetes panel 03/13/20 Range/Units 04:45 Sodium 130 L (137-145) mmol/L Potassium 4.5 (3.5-5.1) mmol/L Chloride 93 L (98-107) mmol/L Carbon Dioxide 25 (22-30) mmol/L BUN 14 (9-20) mg/dL Creatinine 0.76 (0.66-1.25) mg/dL Glucose 236 H (74-99) mg/dL Calcium 9.8 (8.4-10.2) mg/dL AST 22 (17-59) U/L ALT 13 (4-49) U/L Alkaline Phosphatase 108 (38-126) U/L Total Protein 8.2 (6.3-8.2) g/dL Albumin 4.7 (3.5-5.0) g/dL Calcium panel 03/13/20 Range/Units 04:45 Calcium 9.8 (8.4-10.2) mg/dL Albumin 4.7 (3.5-5.0) g/dL Pituitary panel 03/13/20 Range/Units 04:45 Sodium 130 L (137-145) mmol/L Potassium 4.5 (3.5-5.1) mmol/L Chloride 93 L (98-107) mmol/L Carbon Dioxide 25 (22-30) mmol/L BUN 14 (9-20) mg/dL Creatinine 0.76 (0.66-1.25) mg/dL Glucose 236 H (74-99) mg/dL Calcium 9.8 (8.4-10.2) mg/dL Adrenal panel 03/13/20 Range/Units 04:45 Sodium 130 L (137-145) mmol/L Potassium 4.5 (3.5-5.1) mmol/L Chloride 93 L (98-107) mmol/L Carbon Dioxide 25 (22-30) mmol/L BUN 14 (9-20) mg/dL Creatinine 0.76 (0.66-1.25) mg/dL Glucose 236 H (74-99) mg/dL Calcium 9.8 (8.4-10.2) mg/dL Total Bilirubin 0.3 (0.2-1.3) mg/dL AST 22 (17-59) U/L ALT 13 (4-49) U/L Alkaline Phosphatase 108 (38-126) U/L Total Protein 8.2 (6.3-8.2) g/dL Albumin 4.7 (3.5-5.0) g/dL - Imaging CT scan - abdomen: image reviewed (3mm left distal stone and multiple non obstructing stones on the left) Assessment and Plan Assessment: 64 yo male admitted to the hospital with 3 mm left sided ureteral stone. He is having intractable pain with N/V. no previous hx of stone -pain control -NPO past MN, if continues to have pain, then will proceed to OR tomorrow for left sided ureteroscopy
[2020-03-13] MEDS: KETOROLAC 30 MG/ML 1 ML VIAL IVP SCH ×2 (18:26→23:50)
[2020-03-13] MEDS ORDERED: tiZANidine 4 MG TAB PO PRN (21:06)
[2020-03-13] MEDS ORDERED: ATORVASTATIN 10 MG TAB PO SCH (21:15)
[2020-03-13 22:18] LABS: Glucose,Whole Blood 142 mg/dL (75-99)
[2020-03-13] MEDS: PRIMIDONE 50 MG TAB PO SCH (22:18)
[2020-03-13] MEDS: metFORMIN 500 MG TAB PO SCH (22:18)
[2020-03-13] MEDS: GLIMEPIRIDE 4 MG TAB PO SCH (22:18)
[2020-03-13] MEDS: GABAPENTIN 300 MG CAP PO SCH (22:19)
[2020-03-14 02:03] VITALS: TEMP 98.1
[2020-03-14] MEDS: SODIUM CHLORIDE 0.9% 1,000 ML IV SCH ×2 (05:15→09:42)
[2020-03-14] MEDS: KETOROLAC 30 MG/ML 1 ML VIAL IVP SCH ×2 (06:13→09:36)
[2020-03-14 06:21] LABS: Glucose,Whole Blood 176 mg/dL (75-99)
[2020-03-14 07:52] LABS: Basophils % (A) 0 %; Eosinophils % (A) 0 %; HCT 36.6 % (39.0-53.0); HGB 12.1 gm/dL (13.0-17.5); Lymphocytes # (A) 1.5 k/uL (1.0-4.8); Lymphocytes % (A) 20 %; MCH 32.6 pg (25.0-35.0); MCV 98.8 fL (80.0-100.0); Mean Platelet Volume 6.6; Monocytes # (A) 0.5 k/uL (0-1.0); Monocytes % (A) 7 %; Neutrophils # (A) 5.4 k/uL (1.3-7.7); Neutrophils % (A) 71 %; Platelet Count 265 k/uL (150-450); RBC 3.71 m/uL (4.30-5.90); WBC 7.6 k/uL (3.8-10.6)
[2020-03-14 08:14] LABS: African American GFR (CKD) >90 (>60 ml/min/1.73 sqM); Anion Gap 9 mmol/L; Blood Urea Nitrogen 12 mg/dL (9-20); Calcium 8.7 mg/dL (8.4-10.2); Carbon Dioxide 22 mmol/L (22-30); Chloride 100 mmol/L (98-107); Glucose 193 mg/dL (74-99); Non-African American GFR(CKD) >90 (>60 ml/min/1.73 sqM); Potassium 4.3 mmol/L (3.5-5.1); Sodium 131 mmol/L (137-145)
[2020-03-14] MEDS ORDERED: DULoxetine HCL 30 MG CAPSULE.DR PO SCH (09:00)
[2020-03-14] MEDS ORDERED: ASPIRIN 325 MG TAB PO SCH (09:00)
[2020-03-14] MEDS ORDERED: MELOXICAM 7.5 MG TAB PO SCH (09:00)
[2020-03-14] MEDS: GLIMEPIRIDE 4 MG TAB PO SCH (09:38)
[2020-03-14] MEDS: metFORMIN 500 MG TAB PO SCH (09:38)
[2020-03-14] MEDS: PRIMIDONE 50 MG TAB PO SCH (09:39)
[2020-03-14] MEDS: GABAPENTIN 300 MG CAP PO SCH (09:39)
[2020-03-14 09:43] VITALS: BP 159/82; PULSE 66
[2020-03-14 11:56] LABS: Glucose,Whole Blood 181 mg/dL (75-99)
--- NOTE | 2020-03-14 12:33 | P.DS ---
Providers Date of admission: 03/13/20 11:03 Attending physician: Elie Monaco MD Primary care physician: Mini [facility] Course: Mr Harrell is 64 yo male admitted to the hospital with 4 mm left sided ureteral stone. He was admitted to the hospital for intractable pain with associated nausea/vomiting. He required IV pain medications and IV fluid. On 03/14 his pain and N/V resolved. He was discharged home on 03/14 at time of discharge he was tolerating diet, ambulating and pain was well controlled. He will f/u in 2 weeks in urology clinic Patient Condition at Discharge: Stable Plan - Discharge Summary Discharge Rx Participant: Yes New Discharge Prescriptions: New Ibuprofen 600 mg PO Q8H PRN #20 tab PRN Reason: Pain No Action Aspirin 325 mg PO DAILY Primidone 150 mg PO BID Atorvastatin [Lipitor] 10 mg PO HS sitaGLIPtin [Januvia] 100 mg PO W/SUPPER Gabapentin 600 mg PO BID metFORMIN HCL 1,000 mg PO BID tiZANidine [Zanaflex] 4 mg PO BID PRN PRN Reason: RESTLESS LEGS Pioglitazone [Actos] 30 mg PO W/SUPPER Meloxicam [Mobic] 15 mg PO DAILY Glimepiride [Amaryl] 4 mg PO BID DULoxetine HCL [Cymbalta] 30 mg PO DAILY Discharge Medication List Aspirin 325 mg PO DAILY 12/16/14 [History] Atorvastatin [Lipitor] 10 mg PO HS 12/16/14 [History] Primidone 150 mg PO BID 12/16/14 [History] sitaGLIPtin [Januvia] 100 mg PO W/SUPPER 12/16/14 [History] Gabapentin 600 mg PO BID 09/17/16 [History] metFORMIN HCL 1,000 mg PO BID 09/17/16 [History] Meloxicam [Mobic] 15 mg PO DAILY 02/13/20 [History] Pioglitazone [Actos] 30 mg PO W/SUPPER 02/13/20 [History] tiZANidine [Zanaflex] 4 mg PO BID PRN 02/13/20 [History] DULoxetine HCL [Cymbalta] 30 mg PO DAILY 03/13/20 [History] Glimepiride [Amaryl] 4 mg PO BID 03/13/20 [History] Ibuprofen 600 mg PO Q8H PRN #20 tab 03/14/20 [Rx] Follow up Appointment(s)/Referral(s): Jason Morse MD [Primary Care Provider] - 1-2 days Elie Monaco MD [STAFF PHYSICIAN] - 2 Weeks Activity/Diet/Wound Care/Special Instructions: Drink plenty of fluid You may see some blood in the urine
[2020-03-14] MEDS ORDERED: PIOGLITAZONE 30 MG TAB PO SCH (17:30)
[2020-03-14] MEDS ORDERED: LINAGLIPTIN 5 MG TABLET PO SCH (17:30)
== END 2020-03-14 13:12 | disposition home or self-care (01) ==
LOC: EC 03:51 → 1SOBS 11:03
PROVIDERS: ADMIT Urology; ATTEND Urology
DX: N13.2 Hydronephrosis with renal and ureteral calculous obstruction (principal); K21.9 Gastro-esophageal reflux disease without esophagitis; E78.5 Hyperlipidemia, unspecified; G40.909 Epilepsy, unspecified, not intractable, without status epilepticus; G56.00 Carpal tunnel syndrome, unspecified upper limb; Z03.818 Encounter for observation for suspected exposure to other biological agents ruled out; Z79.82 Long term (current) use of aspirin; Z79.899 Other long term (current) drug therapy; Z79.84 Long term (current) use of oral hypoglycemic drugs; Z79.1 Long term (current) use of non-steroidal anti-inflammatories (NSAID); Z86.73 Personal history of transient ischemic attack (TIA), and cerebral infarction without residual deficits; Z98.890 Other specified postprocedural states; Z87.891 Personal history of nicotine dependence
CPT/HCPCS: 96365; 96375 ×2; 96376; 96361; 99285; 36415; 93005; 80053; 80048; 82150; 83690; 85025 ×2; 81003; 74022; 74176; G0378 ×2; U0003; J2270; J0360; J2765; J2405; J0696; J1885; J1170

== ENCOUNTER → 2020-04-25 | Outpatient (CLI) | payer MEDICARE, OTHER ==
[2020-04-25 10:47] LABS: Appearance,Urine Clear (Clear); Bilirubin,Urine Negative (Negative); Blood,Urine Negative (Negative); Color,Urine Light Yellow; Glucose,Urine (UA) 2+ (Negative); Ketones,Urine Negative (Negative); Leukocyte Esterase,Urine Negative (Negative); Nitrite,Urine Negative (Negative); Protein,Urine Negative (Negative); Specific Gravity,Urine 1.006 (1.001-1.035); Urobilinogen,Urine <2.0 mg/dL (<2.0)
[2020-04-25 10:50] LABS: Basophils % (A) 1 %; Eosinophils % (A) 1 %; HCT 35.2 % (39.0-53.0); HGB 11.7 gm/dL (13.0-17.5); Lymphocytes # (A) 1.7 k/uL (1.0-4.8); Lymphocytes % (A) 29 %; MCH 32.5 pg (25.0-35.0); MCHC 33.4 g/dL (31.0-37.0); MCV 97.3 fL (80.0-100.0); Mean Platelet Volume 6.6; Monocytes # (A) 0.4 k/uL (0-1.0); Monocytes % (A) 6 %; Neutrophils # (A) 3.7 k/uL (1.3-7.7); Neutrophils % (A) 62 %; Platelet Count 275 k/uL (150-450); RBC 3.62 m/uL (4.30-5.90); RDW 12.2 % (11.5-15.5)
[2020-04-25 10:58] LABS: African American GFR (CKD) >90 (>60 ml/min/1.73 sqM); Anion Gap 7 mmol/L; Blood Urea Nitrogen 11 mg/dL (9-20); Calcium 9.3 mg/dL (8.4-10.2); Carbon Dioxide 30 mmol/L (22-30); Chloride 92 mmol/L (98-107); Glucose 125 mg/dL (74-99); Non-African American GFR(CKD) >90 (>60 ml/min/1.73 sqM); Sodium 129 mmol/L (137-145)
== END | disposition home or self-care (01) ==
LOC: LABWHC1 09:39
PROVIDERS: ATTEND Urology
DX: Z01.818 Encounter for other preprocedural examination (principal); N20.0 Calculus of kidney
CPT/HCPCS: 36415; 80048; 81003; 85025; 87086

== ENCOUNTER 2020-05-01 06:57 | Day surgery (SDC) | payer MEDICARE, OTHER ==
[2020-04-26 14:39] VITALS: BMI 21.7
--- NOTE | 2020-04-30 20:21 | P.HPIHPCON ---
History of Present Illness H&P Date: 05/01/20 Chief Complaint: Left sided renal stone Mr Harrell is a 65 yo male with 8.5 mm left renal stone, I discussed the option of observation, ESWL and ureteroscopy with him. He agreed to proceed with ureteroscopy. Discussed with him risk which includes but no limited to bleeding, infection and ureteral perforation. Also discussed with him risk from anesthesia. He understood all risk and agreed to proceed with left sided ureteroscopy, holmium laser lithotripsy and stone basketting. Consent for Procedure: I have explained the operation/procedure to the patient, including the risks, benefits, side effects, alternative therapies (including not receiving the proposed treatment or service), the likelihood of the patient achieving his/her goals, and potential recuperation problems for the procedure/sedation/analgesia, as well as any blood products, if indicated. I also explained to the patient the risks, benefits and side effects of the alternatives, as well as the risks related to not receiving the proposed procedure, care, treatment, or services. Past Medical History Past Medical History: CVA/TIA, GERD/Reflux, Hyperlipidemia, Neurologic Disorder, Seizure Disorder Additional Past Medical History / Comment(s): carpal tunnel calli wrist, neuropathy calli legs, states "born with convulsions" last seizure 1986, states has tremors, states no residual effects from TIA's History of Any Multi-Drug Resistant Organisms: None Reported Past Surgical History: Orthopedic Surgery Additional Past Surgical History / Comment(s): "born with convulsions", lymph nodes removed left cervical, left knee surgery Past Anesthesia/Blood Transfusion Reactions: No Reported Reaction Smoking Status: Former smoker Medications and Allergies Home Medications Medication Instructions Recorded Confirmed Type Aspirin 325 mg PO DAILY 12/16/14 04/26/20 History Atorvastatin [Lipitor] 10 mg PO HS 12/16/14 04/26/20 History Primidone 150 mg PO BID 12/16/14 04/26/20 History sitaGLIPtin [Januvia] 100 mg PO W/SUPPER 12/16/14 04/26/20 History Gabapentin 600 mg PO BID 09/17/16 04/26/20 History metFORMIN HCL 1,000 mg PO BID 09/17/16 04/26/20 History Pioglitazone [Actos] 30 mg PO W/SUPPER 02/13/20 04/26/20 History tiZANidine [Zanaflex] 4 mg PO BID PRN 02/13/20 04/26/20 History Glimepiride [Amaryl] 4 mg PO BID 03/13/20 04/26/20 History Naproxen Sodium [Aleve] 220 mg PO DAILY PRN 04/26/20 04/26/20 History Allergies Allergy/AdvReac Type Severity Reaction Status Date / Time No Known Allergies Allergy Verified 04/26/20 14:29 Surgical - Exam - General no distress, no pain - Respiratory normal expansion, normal respiratory effort - Abdomen Abdomen: soft, non tender - Psychiatric oriented to time, oriented to person, oriented to place Assessment and Plan Assessment: 65 yo with hx of left sided renal stone -OR for left sided ureteroscopy with holmium laser and stone basketting and stent placement
[~2020-05-01 06:57] MED LIST: DEXAMETHASONE SOD PHOSPHATE 10 MG/ML 1 ML VIAL IV ONE; HYDROmorphone 0.5 MG/0.5 ML SYRINGE IVP PRN; LACTATED RINGERS 1,000 ML IV SCH; ONDANSETRON 4 MG/2 ML VIAL IVP ONE
--- NOTE | 2020-05-01 07:22 | XR ---
EXAMINATION TYPE: XR KUB DATE OF EXAM: 05/01/2020 7:13 AM CLINICAL HISTORY: Left-sided kidney stones. TECHNIQUE: Two supine KUB images of the abdomen are obtained. COMPARISON: Most recent CT March 13, 2020. FINDINGS: The 3 to 4 mm distal left ureteric calculus left pelvis is less well seen on plain films, r ound 3 to 4 mm density on plain film could reflect this calculus or adjacent similar size phlebolith on CT. For visualization of left renal calculi due to overlying fecal debris. There are roughly 5 lef t-sided renal calculi measuring up to 6 mm in size centered at L1-L2 disc space. No right-sided nephr olithiasis. Overall nonobstructive bowel gas pattern. Lung bases are clear. Osseous structures are intact. IMPRESSION: As above.
[2020-05-01 07:46] LABS: Glucose,Whole Blood 191 mg/dL (75-99)
[2020-05-01] MEDS ORDERED: PHENYLEPHRINE-0.9% NACL SYG 1 MG/10 ML SYRINGE ONE (08:46)
[2020-05-01] MEDS ORDERED: LIDOCAINE 1% INJ 10MG/ML (20 ML MDV) ONE (08:46)
[2020-05-01] MEDS ORDERED: PROPOFOL 10 MG/ML 20 ML VIAL IV ONE (08:46)
[2020-05-01] MEDS ORDERED: fentaNYL (PF) 50 MCG/ML 2 ML AMP ONE (08:46)
[2020-05-01] MEDS ORDERED: SUCCINYLCHOLINE CHLORIDE 100 MG/5 ML SYR IV ONE (08:46)
[2020-05-01] MEDS ORDERED: ROCURONIUM BROMIDE 10 MG/ML 5 ML VIAL IV ONE (08:46)
[2020-05-01] MEDS ORDERED: MIDAZOLAM 2 MG/2 ML VIAL ONE (08:46)
[2020-05-01] MEDS ORDERED: IOPAMIDOL-370 50ML BTL IRRIGATION ONE (09:21)
[2020-05-01] MEDS ORDERED: LACTATED RINGERS 1,000 ML IV ONE (10:08)
--- NOTE | 2020-05-01 10:17 | P.OP ---
Date of Procedure: 05/01/20 Preoperative Diagnosis: Left-sided renal stone Postoperative Diagnosis: Left-sided renal stone/left-sided diverticulm Procedure(s) Performed: Cystoscopy, left ureteroscopy, retrograde pyelogram, holmium laser lithotripsy, stone basketing, stent placement and incision of the renal diverticulum Implants: 6-Kenyan by 26 cm stent left on a string Anesthesia: DIEGOA Surgeon: Elie Monaco Estimated Blood Loss (ml): 5 Pathology: other (Left renal stone) Condition: stable Disposition: PACU Indications for Procedure: Mr Harrell is a 65 yo male with 8.5 mm left renal stone, I discussed the option of observation, ESWL and ureteroscopy with him. He agreed to proceed with ureteroscopy. Discussed with him risk which includes but no limited to bleeding, infection and ureteral perforation. Also discussed with him risk from anesthesia. He understood all risk and agreed to proceed with left sided ureteroscopy, holmium laser lithotripsy and stone basketting. Operative Findings: 2 large stones within the upper pole, and opening to renal diverticulum within the upper. Diverticulum contained greater than 100 stones all measurements smaller than 1 mm Description of Procedure: Patient was brought to the operating room, general anesthesia was induced. He was prepped and draped in sterile fashion a placement and placed in dorsal lithotomy position. Cystoscopy fitted 21 sheath was inserted per urethra, cy stoscopy was performed showed no abnormality within the bladder. Attention was then carried to the left ureteral orifice which was intubated with a 4-Kenyan open-ended catheter, retrograde pyelogram was performed which showed a dilated ureter but no stones were visualized or filling defects. At this time a semirigid ureteroscope was inserted per urethra and advanced up the left ureteral orifice, ureteroscope was advanced up to the proximal ureter, which showed a dilated ureter but no stones or strictures were encountered. At this time a sensor wire was passed through the ureteroscope and the ureteroscope was withdrawn with the wire in place. Next an 11 x 13-Kenyan access sheath was passed over the wire under fluoroscopy into the proximal ureter. Next a flexible ureteroscope was inserted through the access sheath. Renoscopy was performed which showed 2 large stones within the upper pole. The stones were fragmented, and the large fragments were removed using the stone basket. Repeat renoscopy showed no sizable fragment. At this time I noticed a small opening to a left renal diverticulum within the upper . I was not able to advance the scope past it, at this point the diverticulum was slightly incised, the ureteroscope was advanced through the diverticulum. Renoscopy of the diverticulum was performed which showed more than 100 small renal stones, all stones measured less than 1 mm. At this time the diverticulum was further incised to allow drainage of the small stones. Using popcorn setting the fragments were further broken down into smaller pieces using the holmium laser. Repeat renoscopy showed no sizable fragments all fragments were smaller than 1 mm and were too small to basket. At this time a sensor wire was advanced through the ureteroscope into the diverticulum. Pullback ureteroscopy was performed which showed no injury to the ureter or any ureteral stones. Next a 6-Kenyan by 26 cm stent was passed over the wire. The proximal curl was visuali zed in the diverticulum, distal curl was visualized in the bladder using the cystoscope. The stent was left on a string. The bladder was emptied and the end of the case. The patient thought the procedure well was taken to PACU in stable condition
[2020-05-01 10:20] VITALS: RESP 16; TEMP 97.5
[2020-05-01] MEDS ORDERED: hydrALAZINE HCL 20 MG/ML 1 ML VIAL IVP ONE (11:06)
[2020-05-01] MEDS ORDERED: ENALAPRILAT 1.25 MG/ML 1 ML VIAL IVP ONE ×2 (11:47→12:35)
[2020-05-01 12:47] LABS: Glucose,Whole Blood 183 mg/dL (75-99)
[2020-05-01 12:54] VITALS: BP 168/87; PULSE 96
[2020-05-01 13:11] LABS: Glucose,Whole Blood 180 mg/dL (75-99)
--- NOTE | 2020-05-01 13:33 | FL ---
EXAMINATION TYPE: FL cystogram DATE OF EXAM: 05/01/2020 COMPARISON: NONE HISTORY: Left-sided kidney stones TECHNIQUE: Fluoroscopy. FINDINGS: Fluoroscopic guidance was provided during procedure for performing physician. A total of 46 seconds of fluoroscopic time was utilized during the procedure and 2 spot images was acquired. Ple ase see operative report for additional details. IMPRESSION: As Above.
== END 2020-05-01 13:13 | disposition home or self-care (01) ==
LOC: OR 06:57
PROVIDERS: ATTEND Urology
DX: N20.0 Calculus of kidney (principal); E78.5 Hyperlipidemia, unspecified; E11.40 Type 2 diabetes mellitus with diabetic neuropathy, unspecified; K21.9 Gastro-esophageal reflux disease without esophagitis; G40.909 Epilepsy, unspecified, not intractable, without status epilepticus; Z87.442 Personal history of urinary calculi; Z79.84 Long term (current) use of oral hypoglycemic drugs; Z79.82 Long term (current) use of aspirin; Z79.899 Other long term (current) drug therapy; Z98.1 Arthrodesis status; Z98.890 Other specified postprocedural states; Z86.73 Personal history of transient ischemic attack (TIA), and cerebral infarction without residual deficits; Z87.891 Personal history of nicotine dependence
CPT/HCPCS: 82365; 74430; 74018; 52356; C2625; C1758; C1769; J2250; J0360; J1100; J0690; J2405; J2001; J3010; J2370; J0330; J2704; J1170; Q9967

== ENCOUNTER 2020-05-02 02:46 | Emergency (ER) | payer MEDICARE, OTHER ==
--- NOTE | 2020-05-02 02:49 | ED ---
General Adult HPI - General Stated complaint: ABD PAIN Time Seen by Provider: 05/02/20 02:49 - History of Present Illness Initial comments: Ed is a 65-year-old male who presents the emergency department today via EMS for evaluation of approximately 12 hours of nausea, vomiting and abdominal pain. Patient reports that he underwent cystography with lithotripsy yesterday for kidney stones of the left side. Patient reports that he felt well after the procedure and was discharged home. He states that while waiting for his prescription to [facility] he became nauseated and since that time his had essentially intractable nausea and vomiting. He's developed some left-sided and epigastric abdominal discomfort. He denies any fevers or chills. Denies diarrhea. States that he just cannot stop vomiting. Patient denies any flank pain or pain similar to previous kidney stones. - Related Data Home Medications Medication Instructions Recorded Confirmed Aspirin 325 mg PO DAILY 12/16/14 05/01/20 Atorvastatin [Lipitor] 10 mg PO HS 12/16/14 05/01/20 Primidone 150 mg PO BID 12/16/14 05/01/20 sitaGLIPtin [Januvia] 100 mg PO W/SUPPER 12/16/14 05/01/20 Gabapentin 600 mg PO BID 09/17/16 05/01/20 metFORMIN HCL 1,000 mg PO BID 09/17/16 05/01/20 Pioglitazone [Actos] 30 mg PO W/SUPPER 02/13/20 05/01/20 tiZANidine [Zanaflex] 4 mg PO BID PRN 02/13/20 05/01/20 Glimepiride [Amaryl] 4 mg PO BID 03/13/20 05/01/20 Naproxen Sodium [Aleve] 220 mg PO DAILY PRN 04/26/20 05/01/20 Previous Rx's Medication Instructions Recorded Cephalexin [Keflex] 500 mg PO Q8HR #15 cap 05/01/20 Ketorolac [Toradol] 10 mg PO Q6HR PRN #15 tab 05/01/20 Tamsulosin [Flomax] 0.4 mg PO DAILY #14 cap 05/01/20 Allergies Allergy/AdvReac Type Severity Reaction Status Date / Time No Known Allergies Allergy Verified 05/02/20 02:52 Review of Systems ROS Statement: Those systems with pertinent positive or pertinent negative responses have been documented in the HPI. ROS Other: All systems not noted in ROS Statement are negative. Past Medical History Past Medical History: CVA/TIA, GERD/Reflux, Hyperlipidemia, Neurologic Disorder, Seizure Disorder Additional Past Medical History / Comment(s): carpal tunnel neuropath History of Any Multi-Drug Resistant Organisms: None Reported Past Surgical History: Orthopedic Surgery Additional Past Surgical History / Comment(s): neuropathy, last seizure 1986, "born with convulsions", lymph nodes removed left cervical, left knee surgery Past Anesthesia/Blood Transfusion Reactions: No Reported Reaction Past Drug Use History: None Reported General Exam - General Exam Comments Initial Comments: Physical Exam GENERAL: Dehydrated appearing actively vomiting male in moderate distress, appears u ncomfortable HENT: Normocephalic, Atraumatic. EYES: PERRL, EOMI PULMONARY: Unlabored respirations. CARDIOVASCULAR: RRR Warm and well perfused extremities ABDOMEN: Non-distended Soft, mild tenderness to palpation in the left upper and lower quadrants as well as epigastrium Non-peritoneal SKIN: No rashes or bruising : Deferred NEUROLOGIC: Alert and oriented Normal speech MUSCULOSKELETAL: Moving all extremities with no apparent injury PSYCHIATRIC: No SI/HI Course Vital Signs 05/02/20 05/02/20 02:48 04:35 Temperature 98.6 F 98.7 F Pulse Rate 83 86 Respiratory 22 18 Rate Blood Pressure 179/93 150/86 O2 Sat by Pulse 100 97 Oximetry Medical Decision Making - Medical Decision Making The patient was seen and evaluated history is obtained from patient History and physical exam are concerning for adverse reaction to anesthesia as the patient developed intractable nausea vomiting after anesthesia Labs will be obtained to evaluate for electrolyte abnormalities, x-ray will be obtained to rule out any perforations from multiple episodes of vomiting As reveal hyperglycemia, no other acute abnormalities Patient received antiemetics and a single dose of Dilaudid for abdominal pain, patient reported that morphine does not work for him and a lot of his only thing that has worked in the past After reevaluation patient reports that the abdominal pain nausea and vomiting are completely resolved she's requesting a cup of coffee prior to discharge home. - Lab Data Result diagrams: 05/02/20 03:08 05/02/20 03:08 Lab Results 05/02/20 05/02/20 05/02/20 Range/Units 03:08 03:08 03:08 WBC 12.5 H (3.8-10.6) k/uL RBC 4.39 (4.30-5.90) m/uL Hgb 13.9 (13.0-17.5) gm/dL Hct 41.6 (39.0-53.0) % MCV 94.8 (80.0-100.0) fL MCH 31.8 (25.0-35.0) pg MCHC 33.5 (31.0-37.0) g/dL RDW 12.2 (11.5-15.5) % Plt Count 336 (150-450) k/uL Neutrophils % 87 % Lymphocytes % 7 % Monocytes % 5 % Eosinophils % 0 % Basophils % 0 % Neutrophils # 10.8 H (1.3-7.7) k/uL Lymphocytes # 0.8 L (1.0-4.8) k/uL Monocytes # 0.7 (0-1.0) k/uL Eosinophils # 0.0 (0-0.7) k/uL Basophils # 0.0 (0-0.2) k/uL Sodium 130 L (137-145) mmol/L Potassium 3.5 (3.5-5.1) mmol/L Chloride 95 L (98-107) mmol/L Carbon Dioxide 20 L (22-30) mmol/L Anion Gap 15 mmol/L BUN 11 (9-20) mg/dL Creatinine 0.75 (0.66-1.25) mg/dL Est GFR (CKD-EPI)AfAm >90 (>60 ml/min/1.73 sqM) Est GFR (CKD-EPI)NonAf >90 (>60 ml/min/1.73 sqM) Glucose 270 H (74-99) mg/dL Calcium 10.2 (8.4-10.2) mg/dL Total Bilirubin 0.5 (0.2-1.3) mg/dL AST 26 (17-59) U/L ALT 19 (4-49) U/L Alkaline Phosphatase 119 (38-126) U/L Total Protein 8.6 H (6.3-8.2) g/dL Albumin 4.9 (3.5-5.0) g/dL Lipase 193 (23-300) U/L Urine Color Light Brown Urine Appearance Clear (Clear) Urine pH 8.0 (5.0-8.0) Ur Specific [place] 1.019 (1.001-1.035) Urine Protein 2+ H (Negative) Urine Glucose (UA) 4+ H (Negative) Urine Ketones 2+ H (Negative) Urine Blood Large H (Negative) Urine Nitrite Negative (Negative) Urine Bilirubin Negative (Negative) Urine Urobilinogen <2.0 (<2.0) mg/dL Ur Leukocyte Esterase Moderate H (Negative) Urine RBC >182 H (0-5) /hpf Urine WBC 28 H (0-5) /hpf Urine Mucus Rare H (None) /hpf Disposition Clinical Impression: Nausea and vomiting after administration of anesthetic agent Disposition: HOME SELF-CARE Condition: Stable Additional Instructions: Follow up with urology as planned Return to the ER for any worsening Is patient prescribed a controlled substance at d/c from ED?: No Referrals: Jason Morse MD [Primary Care Provider] - 1-2 days
[2020-05-02] MEDS ORDERED: HYDROmorphone 0.5 MG/0.5 ML SYRINGE IVP STA ×2 (03:01→04:31)
[2020-05-02] MEDS ORDERED: diphenhydrAMINE 50 MG/ML 1 ML VIAL IVP STA (03:01)
[2020-05-02] MEDS ORDERED: SODIUM CHLORIDE 0.9% 1,000 ML IV STA (03:01)
[2020-05-02] MEDS ORDERED: FAMOTIDINE 20 MG/2 ML VIAL IV STA (03:01)
[2020-05-02 03:18] LABS: Basophils % (A) 0 %; Eosinophils % (A) 0 %; HCT 41.6 % (39.0-53.0); HGB 13.9 gm/dL (13.0-17.5); Lymphocytes # (A) 0.8 k/uL (1.0-4.8); Lymphocytes % (A) 7 %; MCH 31.8 pg (25.0-35.0); MCHC 33.5 g/dL (31.0-37.0); MCV 94.8 fL (80.0-100.0); Mean Platelet Volume 6.5; Monocytes # (A) 0.7 k/uL (0-1.0); Monocytes % (A) 5 %; Neutrophils # (A) 10.8 k/uL (1.3-7.7); Neutrophils % (A) 87 %; Platelet Count 336 k/uL (150-450); RBC 4.39 m/uL (4.30-5.90); RDW 12.2 % (11.5-15.5); WBC 12.5 k/uL (3.8-10.6)
[2020-05-02 03:23] LABS: Appearance,Urine Clear (Clear); Bilirubin,Urine Negative (Negative); Blood,Urine Large (Negative); Color,Urine Light Brown; Glucose,Urine (UA) 4+ (Negative); Leukocyte Esterase,Urine Moderate (Negative); Mucus,Urine Rare /hpf; Nitrite,Urine Negative (Negative); Protein,Urine 2+ (Negative); RBC,Urine >182 /hpf (0-5); Specific Gravity,Urine 1.019 (1.001-1.035); Urobilinogen,Urine <2.0 mg/dL (<2.0); WBC,Urine 28 /hpf (0-5)
[2020-05-02 03:24] LABS: Ketones,Urine 2+ (Negative)
[2020-05-02 03:28] LABS: AST 26 U/L (17-59); African American GFR (CKD) >90 (>60 ml/min/1.73 sqM); Albumin 4.9 g/dL (3.5-5.0); Alkaline Phosphatase 119 U/L (38-126); Anion Gap 15 mmol/L; Blood Urea Nitrogen 11 mg/dL (9-20); Calcium 10.2 mg/dL (8.4-10.2); Carbon Dioxide 20 mmol/L (22-30); Chloride 95 mmol/L (98-107); Glucose 270 mg/dL (74-99); Non-African American GFR(CKD) >90 (>60 ml/min/1.73 sqM); Potassium 3.5 mmol/L (3.5-5.1); Sodium 130 mmol/L (137-145); Total Bilirubin 0.5 mg/dL (0.2-1.3); Total Protein 8.6 g/dL (6.3-8.2)
[2020-05-02 03:34] LABS: ALT 19 U/L (4-49)
--- NOTE | 2020-05-02 03:36 | XR ---
EXAMINATION TYPE: XR abdomen acute w cxr DATE OF EXAM: 05/02/2020 COMPARISON: 03/13/2020 HISTORY: Vomiting TECHNIQUE: 4 views FINDINGS: There is no heart failure nor confluent pneumonic infiltrate. Costophrenic angles are clear . Heart size is normal. There is no sign of intestinal obstruction or pneumoperitoneum. Fecal pattern is normal. There is lef t side ureteral stent noted. There are no pathologic calcifications over the kidneys. There is no keyana dence of abdominal mass. IMPRESSION: No active cardiopulmonary disease. Nonacute abdomen. No adverse change compared to old exam.
[2020-05-02] MEDS ORDERED: cefTRIAXone IN SWFI 1,000 MG/10 ML SYRINGE IVP ONE (03:45)
[2020-05-02 04:36] VITALS: BP 150/86
[2020-05-02] MEDS ORDERED: ONDANSETRON 4 MG ODT STARTER PACK 2 TAB BTL PO STA (05:15)
[2020-05-02 05:58] LABS: Glucose,Whole Blood 263 mg/dL (75-99)
[2020-05-02 06:09] VITALS: PULSE 91; RESP 19; TEMP 98.3
[2020-05-02] MEDS ORDERED: INSULIN ASPART (NovoLOG) 100 UNIT/ML VIAL SQ SCH (07:30)
== END 2020-05-02 06:11 | disposition home or self-care (01) ==
LOC: EC 02:46
DX: R11.2 Nausea with vomiting, unspecified (principal); T88.59XA Other complications of anesthesia, initial encounter; E78.5 Hyperlipidemia, unspecified; Z79.82 Long term (current) use of aspirin; Z79.84 Long term (current) use of oral hypoglycemic drugs; Z79.899 Other long term (current) drug therapy; Z86.73 Personal history of transient ischemic attack (TIA), and cerebral infarction without residual deficits
CPT/HCPCS: 36415; 80053; 83690; 85025; 81001; 74022; 99284; 96374; 96375 ×3; 96376; 96361; J1200; J0696; S0119; J1170

== ENCOUNTER → 2020-05-15 | Outpatient (CLI) | payer MEDICARE, OTHER ==
--- NOTE | 2020-05-15 15:48 | US ---
EXAMINATION TYPE: US kidneys/renal and bladder DATE OF EXAM: 05/15/2020 COMPARISON: NONE CLINICAL HISTORY: N20.1 Calculus of ureter. known left renal stones, had stent placed and then taken out last week on the left EXAM MEASUREMENTS: Right Kidney: 10.4 x 5.2 x 5.1 cm Left Kidney: 10.5 x 4.5 x 6.6 cm Right Kidney: No hydronephrosis or masses seen Left Kidney: 0.8cm echogenic foci may represent stone versus other etiology Bladder: wnl Bilateral Jets seen: yes IMPRESSION: 1. Nonobstructing left renal stone mid left kidney.
== END | disposition home or self-care (01) ==
LOC: RADUSWWP 15:16
PROVIDERS: ATTEND Urology
DX: N20.0 Calculus of kidney (principal)
CPT/HCPCS: 76770

== ENCOUNTER 2020-12-31 03:53 | Observation (INO) | payer MEDICARE, OTHER ==
--- NOTE | 2020-12-31 04:05 | ED ---
Chest Pain HPI <VirgillanaMatthew Waqas - Last Filed: 12/31/20 09:01> - General Source: patient Mode of arrival: EMS Limitations: no limitations - History of Present Illness MD Complaint: other -: minutes(s) Onset: awoke with symptoms Severity scale (1-10): 0 Consistency: constant Improves With: nothing Worsens With: movement Anginal Symptoms: nausea, diaphoresis Treatments Prior to Arrival: none <Melvin Hyde - Last Filed: 01/02/21 08:17> - General Stated Complaint: Dizziness Time Seen by Provider: 12/31/20 03:55 - Related Data Home Medications Medication Instructions Recorded Confirmed Atorvastatin [Lipitor] 10 mg PO HS 12/16/14 12/31/20 Primidone 150 mg PO BID 12/16/14 12/31/20 sitaGLIPtin [Januvia] 100 mg PO AC-SUPPER 12/16/14 12/31/20 Gabapentin 600 mg PO BID 09/17/16 12/31/20 metFORMIN HCL 1,000 mg PO AC-BID 09/17/16 12/31/20 Pioglitazone [Actos] 30 mg PO AC-SUPPER 02/13/20 12/31/20 Glimepiride [Amaryl] 4 mg PO AC-BID 03/13/20 12/31/20 Aspirin EC [Ecotrin] 325 mg PO DAILY 12/31/20 12/31/20 Baclofen [Lioresal] 10 mg PO BID PRN 12/31/20 12/31/20 Previous Rx's Medication Instructions Recorded Meclizine [Antivert] 12.5 mg PO TID PRN #30 tab 01/01/21 amLODIPine [Norvasc] 10 mg PO DAILY #30 tab 01/01/21 Allergies Allergy/AdvReac Type Severity Reaction Status Date / Time No Known Allergies Allergy Verified 12/31/20 09:15 Review of Systems ROS Other: All systems not noted in ROS Statement are negative. <Matthew Noguera - Last Filed: 12/31/20 09:01> ROS Other: All systems not noted in ROS Statement are negative. Constitutional: Denies: fever, chills Respiratory: Denies: cough, dyspnea Cardiovascular: Denies: chest pain, palpitations Gastrointestinal: Reports: nausea. Denies: abdominal pain, vomiting, diarrhea Genitourinary: Denies: dysuria, hematuria Musculoskeletal: Denies: back pain Skin: Denies: rash Neurological: Reports: vertigo. Denies: headache, weakness, numbness, paresthesias, confusion <Melvin Hyde - Last Filed: 01/02/21 08:17> ROS Statement: Those systems with pertinent positive or pertinent negative responses have been documented in the HPI. EKG Findings - EKG Results: EKG: interpreted by YOU TRAN, sinus rhythm (Rate 61 bpm), normal axis, normal QRS, normal ST/T, no acute changes <Melvin Hyde Last Filed: 01/02/21 08:17> Past Medical History Past Medical History: CVA/TIA, GERD/Reflux, Hyperlipidemia, Neurologic Disorder, Seizure Disorder Additional Past Medical History / Comment(s): carpal tunnel neuropath History of Any Multi-Drug Resistant Organisms: None Reported Past Surgical History: Orthopedic Surgery Additional Past Surgical History / Comment(s): neuropathy, last seizure 1986, "born with convulsions", lymph nodes removed left cervical, left knee surgery Past Anesthesia/Blood Transfusion Reactions: No Reported Reaction Past Drug Use History: None Reported <Melvin Hyde - Last Filed: 01/02/21 08:17> General Exam Limitations: no limitations General appearance: alert, in no apparent distress Head exam: Present: atraumatic, normocephalic Eye exam: Present: normal appearance, PERRL, EOMI, nystagmus. Absent: scleral icterus, conjunctival injection ENT exam: Present: normal oropharynx Neck exam: Present: normal inspection, full ROM. Absent: meningismus Respiratory exam: Present: normal lung sounds bilaterally. Absent: respiratory distress, wheezes, rales, rhonchi, stridor Cardiovascular Exam: Present: regular rate, normal rhythm, normal heart sounds. Absent: systolic murmur, diastolic murmur, rubs, gallop GI/Abdominal exam: Present: soft. Absent: distended, tenderness, guarding, rebound, rigid, mass Extremities exam: Present: normal inspection, normal capillary refill. Absent: pedal edema, calf tenderness Back exam: Present: normal inspection. Absent: CVA tenderness (R), CVA tenderness (L) Neurological exam: Present: alert, oriented X3, CN II-XII intact. Absent: motor sensory deficit Skin exam: Present: warm, dry, intact, normal color. Absent: rash <Melvin Hyde - Last Filed: 01/02/21 08:17> Course Vital Signs 12/31/20 12/31/20 12/31/20 03:55 05:38 06:35 Temperature 97.2 F L Pulse Rate 67 58 L 66 Respiratory 18 18 18 Rate Blood Pressure 181/99 156/91 169/86 O2 Sat by Pulse 100 96 98 Oximetry 12/31/20 12/31/20 07:14 08:58 Temperature Pulse Rate 68 66 Respiratory 20 18 Rate Blood Pressure 172/88 147/85 O2 Sat by Pulse 98 99 Oximetry Chest Pain MDM <Matthew Noguera - Last Filed: 12/31/20 09:01> - MDM 65-year-old male had been planned for discharge by previous physician. However he continued to have symptoms of vertigo. He will be admitted for symptom control. Neurology will be placed on consult for evaluation. (Matthew Noguera) Disposition Decision to Admit Reason: Admit from EC Decision Date: 12/31/20 Decision Time: 09:02 <Matthew Noguera - Last Filed: 12/31/20 09:01> Is patient prescribed a controlled substance at d/c from ED?: No <Melvin Hyde - Last Filed: 01/02/21 08:17> Clinical Impression: Vertigo Disposition: ADMITTED IP TO THIS [facility] Condition: Stable
[2020-12-31] MEDS ORDERED: MECLIZINE 12.5 MG TAB PO STA (04:18)
[2020-12-31 04:54] LABS: Basophils % (A) 1 %; Eosinophils # (A) 0.1 k/uL (0-0.7); Eosinophils % (A) 1 %; HCT 41.2 % (39.0-53.0); HGB 13.3 gm/dL (13.0-17.5); Lymphocytes # (A) 2.4 k/uL (1.0-4.8); Lymphocytes % (A) 30 %; MCH 30.8 pg (25.0-35.0); MCHC 32.4 g/dL (31.0-37.0); Mean Platelet Volume 7.1; Monocytes # (A) 0.5 k/uL (0-1.0); Monocytes % (A) 6 %; Neutrophils # (A) 4.7 k/uL (1.3-7.7); Neutrophils % (A) 59 %; Platelet Count 311 k/uL (150-450); RBC 4.33 m/uL (4.30-5.90); RDW 14.1 % (11.5-15.5); WBC 7.9 k/uL (3.8-10.6)
[2020-12-31 05:05] LABS: ALT 12 U/L (4-49); AST 29 U/L (17-59); African American GFR (CKD) >90 (>60 ml/min/1.73 sqM); Albumin 4.5 g/dL (3.5-5.0); Alkaline Phosphatase 107 U/L (38-126); Anion Gap 15 mmol/L; Blood Urea Nitrogen 6 mg/dL (9-20); Calcium 9.6 mg/dL (8.4-10.2); Carbon Dioxide 19 mmol/L (22-30); Chloride 99 mmol/L (98-107); Glucose 166 mg/dL (74-99); Non-African American GFR(CKD) >90 (>60 ml/min/1.73 sqM); Sodium 133 mmol/L (137-145); Total Bilirubin 0.7 mg/dL (0.2-1.3); Total Protein 8.1 g/dL (6.3-8.2)
[2020-12-31 05:18] LABS: Potassium 4.6 mmol/L (3.5-5.1)
[2020-12-31 05:20] LABS: INR 1.1 (<1.2); Partial Thromboplastin Time 24.1 sec (22.0-30.0); Prothrombin Time 11.4 sec (9.0-12.0)
--- NOTE | 2020-12-31 06:38 | CT ---
EXAM: CT Head Without Intravenous Contrast CLINICAL HISTORY: ITS.REASON CT Reason: Neuro deficit, acute, stroke suspected TECHNIQUE: Axial computed tomography images of the head/brain without intravenous contrast. CTDI is 48.8 mGy and DLP is 1050 mGy-cm. This CT exam was performed using one or more of the following dose reduction techniques: automated exposure control, adjustment of the mA and/or kV according to patient size, and/or use of iterative reconstruction technique. COMPARISON: CT 02/13/20. FINDINGS: Brain: No hemorrhage. No acute cortical infarct. No midline shift. Involutional changes, small vessel disease, and encephalomalacia again noted. Ventricles: Unremarkable. Bones/joints: No acute fracture. Soft tissues: Unremarkable. Sinuses: Unremarkable as visualized. Mastoid air cells: Unremarkable as visualized. IMPRESSION: No intracranial hemorrhage or acute cortical infarct. MRI may be considered if clinically indicated.
--- NOTE | 2020-12-31 06:56 | CT ---
EXAM: CT Angiography Head With Intravenous Contrast CLINICAL HISTORY: ITS.REASON CT Reason: Neuro deficit, acute, stroke suspected TECHNIQUE: Axial computed tomographic angiography images of the head with intravenous contrast. CTDI is 444.2 mGy and DLP is 25.5 mGy-cm. This CT exam was performed using one or more of the following dose reduction techniques: automated exposure control, adjustment of the mA and/or kV according to patient size, and/or use of iterative reconstruction technique. MIP reconstructed images were created and reviewed. COMPARISON: No relevant prior studies available. FINDINGS: Limitations: Evaluation limited by slice thickness. Right internal carotid artery: No occlusion. Right anterior cerebral artery: No occlusion. Right middle cerebral artery: No occlusion. Right posterior cerebral artery: No occlusion. Right vertebral artery: No occlusion. Left internal carotid artery: No occlusion. Left anterior cerebral artery: No occlusion. Left middle cerebral artery: No occlusion. Left posterior cerebral artery: No occlusion. Left vertebral artery: No occlusion. Basilar artery: No occlusion. IMPRESSION: No large vessel occlusion. EXAM: CT Angiography Neck With Intravenous Contrast CLINICAL HISTORY: ITS.REASON CT Reason: Neuro deficit, acute, stroke suspected TECHNIQUE: Axial computed tomographic angiography images of the neck with intravenous contrast. CTDI is 444.2 mGy and DLP is 25.5 mGy-cm. This CT exam was performed using one or more of the following dose reduction techniques: automated exposure control, adjustment of the mA and/or kV according to patient size, and/or use of iterative reconstruction technique. MIP reconstructed images were created and reviewed. COMPARISON: No relevant prior studies available. FINDINGS: VASCULATURE: Right common carotid artery: No significant stenosis. No occlusion. Right internal carotid artery: No significant stenosis. No occlusion. Right external carotid artery: No occlusion. Right vertebral artery: No occlusion. Left common carotid artery: No significant stenosis. No occlusion. Left internal carotid artery: No significant stenosis. No occlusion. Left external carotid artery: No occlusion. Left vertebral artery: No occlusion. NECK: Bones/joints: Degenerative changes. Soft tissues: Unremarkable as visualized. Lung apices: Emphysematous changes. CAROTID STENOSIS REFERENCE USING NASCET CRITERIA: % ICA stenosis = (1 - narrowest ICA diameter/diameter of distal cervical ICA) x 100. Mild - <50% stenosis. Moderate - 50-69% stenosis. Severe - 70-94% stenosis. Near occlusion - 95-99% stenosis. Occluded - 100% stenosis. IMPRESSION: No high-grade stenosis or occlusion.
--- NOTE | 2020-12-31 07:45 | XR ---
EXAMINATION TYPE: XR chest 2V DATE OF EXAM: 12/31/2020 COMPARISON: 02/13/2020 TECHNIQUE: PA and lateral views submitted. HISTORY: Altered mental status FINDINGS: Hyperinflation noted. Nodule in the left midlung. Degenerative change spine. No pleural effusion or p neumothorax. No focal pneumonia. Atherosclerotic change aorta. IMPRESSION: 1. COPD. Suspected 8mm left upper lobe lung nodule versus nipple shadow. Repeat frontal and lateral v iews of the chest recommended when the patient's condition tolerates.
[2020-12-31] MEDS ORDERED: diazePAM 5 MG TAB PO STA (07:53)
[2020-12-31] MEDS ORDERED: MECLIZINE 25 MG TAB PO PRN (08:56)
[2020-12-31] MEDS ORDERED: SODIUM CHLORIDE 0.9% 500 ML 500 ML IV ONE (08:56)
[2020-12-31] MEDS ORDERED: DIAZEPAM 5 MG/ML 2 ML INJ IVP PRN (08:57)
[2020-12-31] MEDS ORDERED: ACETAMINOPHEN TAB 325 MG TAB PO PRN (08:59)
[2020-12-31] MEDS ORDERED: METOCLOPRAMIDE 5 MG/ML 2 ML VIAL IVP PRN (08:59)
[2020-12-31] MEDS ORDERED: NALOXONE 0.4 MG/ML 1 ML VIAL IV PRN (08:59)
[2020-12-31] MEDS: SODIUM CHLORIDE 0.9% 1,000 ML IV SCH ×2 (09:08→20:20)
[2020-12-31] MEDS ORDERED: BACLOFEN 10 MG TAB PO PRN (11:09)
[2020-12-31 12:07] LABS: Glucose,Whole Blood 158 mg/dL (75-99)
[2020-12-31] MEDS ORDERED: ALPRAZolam 0.25 MG TAB PO PRN (13:32)
--- NOTE | 2020-12-31 14:13 | HP ---
HISTORY AND PHYSICAL CHIEF COMPLAINT: Vertigo. HISTORY OF PRESENT ILLNESS: This 65-year-old gentleman with a past medical history of multiple medical problems including CVA, TIA x2, history of diabetes, history of GERD, hyperlipidemia, history of seizure disorder, history of neuropathy being followed by Dr. Morse in the outpatient setting. The patient apparently got up today this morning and the patient was feeling dizziness and vertigo last night. The patient is unable to ambulate. Patient has to go to the bathroom during night. The patient came to [facility] and admitted to the hospital for further evaluation. CT scan of the brain was done which showed no acute abnormality. The patient being closely monitored at this time. Neurology consultation also has been sought. There is no history of fever, rigors, chills at this time. PAST MEDICAL HISTORY: History of diabetes, history of GERD, hyperlipidemia, history of seizure disorder, carpal tunnel syndrome. MEDICATIONS: Prior to admission: Januvia, metformin, Primidone, Actos, Amaryl, gabapentin, Lioresal. Lipitor, Ecotrin, doses are reviewed. ALLERGIES: None. FAMILY HISTORY: No history of heart disease or strokes in the family. SOCIAL HISTORY: Previous history of smoking. REVIEW OF SYSTEMS: ENT as mentioned earlier. CARDIOVASCULAR: No angina or palpitations. RESPIRATION: As mentioned earlier. GI no nausea and diarrhea. : No dysuria. NERVOUS SYSTEM: No numbness, weakness. ALLERGY/IMMUNOLOGY: No asthma or hayfever. MUSCULOSKELETAL: As mentioned earlier. HEMATOLOGY/ONCOLOGY: No history of anemia. ENDOCRINE: As mentioned earlier. CONSTITUTIONAL: As mentioned earlier. DERMATOLOGY negative. RHEUMATOLOGY: Negative. PSYCHIATRIC: As mentioned earlier. PHYSICAL EXAMINATION: Alert and oriented times three. Pulse 76, blood pressure 192/84, respirations 16, temperature 98.2, pulse ox 99 percent on room air. HEENT: Conjunctivae normal. NECK: No JVD. CARDIOVASCULAR: S1, S2 muffled. RESPIRATIONS: Breath sounds diminished in the bases. No rhonchi. No crackles. ABDOMEN: Soft, nontender. No mass palpable. LEGS: No edema, no swelling. NERVOUS SYSTEM: Higher functions as mentioned earlier. Cranial nerves grossly intact. No nystagmus. No diplopia. Moves all 4 limbs. No signs of cerebellar dysfunction. LEGS: No edema. No swelling. SKIN: No ulcer, rash or bleeding. JOINTS: No active deforming arthropathy. LABS: CBC within normal limits. Sodium 133 and glucose 166. ASSESSMENT: 1. Vertigo, possible benign positional vertigo. 2. Rule out transient ischemic attack. 3. Gait dysfunction. 4. Hyponatremia. 5. History of cerebrovascular accident/ transient ischemic attack. 6. Diabetes mellitus type 2. 7. Gastroesophageal reflux disease. 8. Hyperlipidemia. 9. History of seizure disorder. 10.History of carpal tunnel syndrome. 11.History of tremors. 12.History of neuropathy. 13.Remote history of nicotine dependence. 14.NO CODE, NO CPR, NO VENT. RECOMMENDATIONS AND DISCUSSION: In this 65-year-old gentleman who presented with multiple complex medical issues, we will monitor the patient closely, continue the current medications, management and symptomatic treatment. I recommend a complete neurovascular workup and neurology consultation. Antiplatelet agents. The patient is on Lipitor. Guarded prognosis because of multiple complex medical issues. Further recommendations to follow. Recommend UA with micro. See orders for details. A copy of this dictation is being forwarded to Dr. Morse who is the primary physician. MMODL / IJN: [id number] /
[2020-12-31] MEDS: amLODIPine 10 MG TAB PO SCH (14:35)
[2020-12-31] MEDS: HEPARIN SODIUM,PORCINE/PF 5,000 UNIT/0.5 ML SYRINGE SQ SCH ×2 (14:35→20:20)
[2020-12-31] MEDS: MECLIZINE 12.5 MG TAB PO SCH ×2 (14:35→20:20)
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
[2020-12-31 17:14] LABS: Glucose,Whole Blood 205 mg/dL (75-99)
[2020-12-31] MEDS: INSULIN ASPART (NovoLOG) 100 UNIT/ML VIAL SQ SCH ×2 (17:16→20:27)
[2020-12-31] MEDS: metFORMIN 500 MG TAB PO SCH (17:17)
[2020-12-31] MEDS: GLIMEPIRIDE 4 MG TAB PO SCH (17:17)
[2020-12-31] MEDS ORDERED: LINAGLIPTIN 5 MG TABLET PO SCH (17:30)
[2020-12-31] MEDS ORDERED: PIOGLITAZONE 30 MG TAB PO SCH (17:30)
[2020-12-31] MEDS: GABAPENTIN 300 MG CAP PO SCH (20:19)
[2020-12-31] MEDS: PRIMIDONE 50 MG TAB PO SCH (20:20)
[2020-12-31 20:45] LABS: Glucose,Whole Blood 125 mg/dL (75-99)
[2020-12-31] MEDS ORDERED: ATORVASTATIN 10 MG TAB PO SCH (21:00)
[2021-01-01 07:17] LABS: Glucose,Whole Blood 144 mg/dL (75-99)
[2021-01-01] MEDS: MECLIZINE 12.5 MG TAB PO SCH (07:45)
[2021-01-01 07:46] VITALS: PULSE 69; RESP 16; TEMP 97.8
[2021-01-01] MEDS: metFORMIN 500 MG TAB PO SCH (07:46)
[2021-01-01] MEDS: amLODIPine 10 MG TAB PO SCH (07:46)
[2021-01-01] MEDS: GLIMEPIRIDE 4 MG TAB PO SCH (07:46)
[2021-01-01] MEDS: HEPARIN SODIUM,PORCINE/PF 5,000 UNIT/0.5 ML SYRINGE SQ SCH (07:46)
[2021-01-01] MEDS: PRIMIDONE 50 MG TAB PO SCH (07:47)
[2021-01-01] MEDS: GABAPENTIN 300 MG CAP PO SCH (07:47)
[2021-01-01] MEDS: INSULIN ASPART (NovoLOG) 100 UNIT/ML VIAL SQ SCH (07:48)
[2021-01-01] MEDS: SODIUM CHLORIDE 0.9% 1,000 ML IV SCH (08:57)
[2021-01-01 08:58] LABS: Basophils # (A) 0.03 X 10*3/uL (0.00-0.10); Basophils % (A) 0.4 %; Eosinophils # (A) 0.07 X 10*3/uL (0.04-0.35); HGB 12.9 g/dL (13.0-17.0); Lymphocytes # (A) 2.13 X 10*3/uL (0.90-5.00); Lymphocytes % (A) 31.2 %; MCH 31.9 pg (27.0-32.0); MCHC 33.9 g/dL (32.0-37.0); MCV 93.8 fL (80.0-97.0); Mean Platelet Volume 8.5 fL (9.5-12.2); Monocytes # (A) 0.67 X 10*3/uL (0.20-1.00); Monocytes % (A) 9.8 %; Neutrophils # (A) 3.91 X 10*3/uL (1.80-7.70); Neutrophils % (A) 57.3 %; Platelet Count 292 X 10*3/uL (140-440); RBC 4.05 X 10*6/uL (4.40-5.60); RDW 13.4 % (11.5-14.5); WBC 6.83 X 10*3/uL (4.50-10.00)
[2021-01-01] MEDS ORDERED: ASPIRIN 325 MG TAB PO SCH (09:00)
[2021-01-01 09:56] LABS: African American GFR (CKD) 108.6 (60.0-200.0); Anion Gap 8.3 mmol/L (4.00-12.00); BUN/Creat Ratio 8.75 Ratio (12.00-20.00); Calcium 9.3 mg/dL (8.7-10.3); Carbon Dioxide 26.7 mmol/L (21.6-31.8); Non-African American GFR(CKD) 93.7 (60.0-200.0)
[2021-01-01 11:36] VITALS: BP 146/99
--- NOTE | 2021-01-01 12:44 | ECHOF ---
Referral Reason:Stroke MEASUREMENTS -------- HEIGHT: 175.3 cm WEIGHT: 65.8 kg BP: 145/79 RVIDd: 3.5 cm (< 3.3) IVSd: 1.2 cm (0.6 - 1.1) LVIDd: 4.2 cm (3.9 - 5.3) LVPWd: 1.2 cm (0.6 - 1.1) IVSs: 1.5 cm LVIDs: 3.0 cm LVPWs: 1.5 cm LA Diam: 3.1 cm (2.7 - 3.8) LAESV Index (A-L): 27.48 ml/m Ao Diam: 3.4 cm (2.0 - 3.7) AV Cusp: 2.0 cm (1.5 - 2.6) MV EXCURSION: 16.594 mm (> 18.000) MV EF SLOPE: 130 mm/s (70 - 150) EPSS: 0.6 cm MV E Augie: 0.74 m/s MV DecT: 294 ms MV A Augie: 0.86 m/s MV E/A Ratio: 0.86 FINDINGS -------- Sinus rhythm. This was a technically excellent study. The left ventricular size is normal. There is borderline concentric left ventricular hypertrophy. Overall left ventricular systolic function is normal with, an EF between 60 - 65 %. The right ventricle is mildly enlarged. Normal LA size by volume 22+/-6 ml/m2. The right atrium is normal in size. Interatrial and interventricular septum intact. The aortic valve is trileaflet, and appears structurally normal. No aortic stenosis or regurgitation. The mitral valve is normal. The tricuspid valve appears structurally normal. Unable to estimate RVSP due to inadequate TR jet s pectral doppler profile. The pulmonic valve is normal. The aortic root size is normal. Normal inferior vena cava with normal inspiratory collapse consistent with estimated right atrial pre ssure of 5 mmHg. There is no pericardial effusion. CONCLUSIONS -------- 1. The left ventricular size is normal. 2. There is borderline concentric left ventricular hypertrophy. 3. Overall left ventricular systolic function is normal with, an EF between 60 - 65 %. 4. The right ventricle is mildly enlarged. 5. The aortic valve is trileaflet, and appears structurally normal. No aortic stenosis or regurgitati on. 6. There is no pericardial effusion. MAIL PROCESSING ASSOCIATE: Ella Pal RDCS
--- NOTE | 2021-01-01 23:37 | DS ---
DISCHARGE SUMMARY DATE OF SERVICE: 01/01/2021 FINAL DIAGNOSES: 1. Vertigo, possibly benign positional vertigo. 2. Possibly Meniere's disease. 3. Transient ischemic attack unlikely. 4. Gait dysfunction. 5. Hyponatremia. 6. History of cerebrovascular accident, transient ischemic attack. 7. Diabetes mellitus, type 2. 8. Gastroesophageal reflux disease. 9. Hyperlipidemia. 10.History of seizures disorder. 11.History of carpal tunnel syndrome. 12.History of tremors. 13.History of peripheral neuropathy. 14.Remote history of nicotine dependence. 15.NO CODE, NO CPR, NO VENT. DISCHARGE DISPOSITION: The patient will be discharged in stable condition with guarded prognosis. HISTORY OF PRESENT ILLNESS: This 65-year-old gentleman with a past medical history of multiple medical problems, being followed by Dr. Morse in the outpatient setting, was admitted with dizziness and vertigo. Patient was treated symptomatically. Patient improved significantly. Neurology saw the patient and neurovascular workup was essentially negative. Patient improved significantly clinically and the patient will be discharged in stable condition with guarded prognosis. A 2D echo was also read by Cardiology, which showed ejection fraction about 60% to 65%. DISCHARGE ADVICE AND MEDICATIONS: 1. Discharge diet is cardiac diet. 2. Activity limited until followup. 3. Follow up with Dr. Morse in 2-3 days. 4. Follow up with Dr. Ledezma in one week. 5. Actos 30 mg before supper. 6. Amaryl 4 mg before meals b.i.d. 7. Ecotrin 320 mg daily. 8. Gabapentin 600 mg b.i.d. 9. Januvia 100 mg before supper. 10.Baclofen as before. 11.Lipitor 10 mg at bedtime. 12.Metformin 1000 mg before meals b.i.d. 13.Primidone 150 mg b.i.d. 14.Antivert 12.5 mg t.i.d. p.r.n. 15.Norvasc 10 mg p.o. daily. Once again, the patient will be discharged in stable condition with guarded prognosis. MMODL / CARLOSN: [id number] /
== END 2021-01-01 11:56 | disposition home or self-care (01) ==
LOC: EC 03:53 → 6NMEDSUR 08:59
PROVIDERS: ADMIT Hospitalist; ATTEND Hospitalist
DX: R42 Dizziness and giddiness (principal); R26.9 Unspecified abnormalities of gait and mobility; E87.1 Hypo-osmolality and hyponatremia; Z86.73 Personal history of transient ischemic attack (TIA), and cerebral infarction without residual deficits; E11.42 Type 2 diabetes mellitus with diabetic polyneuropathy; K21.9 Gastro-esophageal reflux disease without esophagitis; E78.5 Hyperlipidemia, unspecified; Z86.69 Personal history of other diseases of the nervous system and sense organs; G56.00 Carpal tunnel syndrome, unspecified upper limb; G25.0 Essential tremor; R11.0 Nausea; R61 Generalized hyperhidrosis; R53.1 Weakness; R07.9 Chest pain, unspecified; H93.13 Tinnitus, bilateral; Z20.822 Contact with and (suspected) exposure to COVID-19; Z79.899 Other long term (current) drug therapy; Z79.84 Long term (current) use of oral hypoglycemic drugs; Z79.82 Long term (current) use of aspirin; Z87.891 Personal history of nicotine dependence; Z87.442 Personal history of urinary calculi; Z66 Do not resuscitate
CPT/HCPCS: 96360; 96361 ×2; 96372; 99285; 36415; 94760; 93005; 93306; 97162; 97166; 80053; 80048; 84484; 85025 ×2; 85610; 85730; 87635; 71046; 70496; 70450; 70498; G0378 ×2; Q9967; J1644

== ENCOUNTER 2021-02-12 19:52 | Emergency (ER) | payer MEDICARE, OTHER ==
[2021-02-12 20:34] VITALS: BP 149/81; PULSE 85; RESP 16; TEMP 97.8
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
[2021-02-12] MEDS ORDERED: ACETAMINOPHEN TAB 500 MG TAB PO STA (21:52)
--- NOTE | 2021-02-12 22:56 | XR ---
EXAMINATION TYPE: XR shoulder complete LT DATE OF EXAM: 02/12/2021 COMPARISON: NONE HISTORY: Shoulder pain TECHNIQUE: 3 views FINDINGS: I see no fracture nor dislocation. Glenohumeral joint is intact. There are no pathologic ca lcifications. IMPRESSION: Negative left shoulder exam. No fracture.
--- NOTE | 2021-02-12 22:57 | XR ---
EXAMINATION TYPE: XR elbow complete LT DATE OF EXAM: 02/12/2021 COMPARISON: NONE HISTORY: Pain TECHNIQUE: 2 views FINDINGS: There is posterior fat pad sign. There is soft tissue swelling around the elbow. I see no d isplaced fracture. IMPRESSION: Elbow joint effusion. Occult fracture is suspected. No dislocation.
--- NOTE | 2021-02-12 22:59 | XR ---
EXAMINATION TYPE: XR foot complete LT DATE OF EXAM: 02/12/2021 COMPARISON: NONE HISTORY: Pain. Injury. TECHNIQUE: 3 views FINDINGS: Metatarsals are intact. I see no fracture nor dislocation. There is moderate osteoarthritis at the IP joint of the big toe. Calcaneus is intact. 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 No fracture seen.
== END 2021-02-13 00:10 | disposition home or self-care (01) ==
LOC: EC 19:52
DX: S42.402A Unspecified fracture of lower end of left humerus, initial encounter for closed fracture (principal); E78.5 Hyperlipidemia, unspecified; K21.9 Gastro-esophageal reflux disease without esophagitis; Z86.73 Personal history of transient ischemic attack (TIA), and cerebral infarction without residual deficits; G40.909 Epilepsy, unspecified, not intractable, without status epilepticus; G62.9 Polyneuropathy, unspecified; Z79.82 Long term (current) use of aspirin; V23.4XXA Motorcycle driver injured in collision with car, pick-up truck or van in traffic accident, initial encounter; Y93.55 Activity, bike riding; Y92.410 Unspecified street and highway as the place of occurrence of the external cause
CPT/HCPCS: 99284

== ENCOUNTER → 2021-10-11 | Outpatient (CLI) | payer MEDICARE, OTHER ==
--- NOTE | 2021-10-11 09:36 | XR ---
Right wrist Limited HISTORY: Trauma and pain 2 views of the right wrist Bone mineralization, joint spaces, alignment are maintained. Sclerosis present at the carpometacarpal joint of the first digit with some spurring suggests mild osteoarthritic change. Suspect soft tissue swelling is present. IMPRESSION: No fracture or dislocation is evident. Wrist MRI may be of benefit as indicated.
== END | disposition home or self-care (01) ==
LOC: RADXRMAIN 08:38
PROVIDERS: ATTEND Internal Medicine
DX: S69.91XA Unspecified injury of right wrist, hand and finger(s), initial encounter (principal); X58.XXXA Exposure to other specified factors, initial encounter

== ENCOUNTER 2021-12-20 19:14 | Inpatient (IN) | payer MEDICARE, OTHER ==
[2021-12-21] MEDS ORDERED: SODIUM CHLORIDE 0.9% 1,000 ML IV STA (00:58)
--- NOTE | 2021-12-21 01:02 | ED ---
General Adult HPI - General Chief complaint: Recheck/Abnormal Lab/Rx Stated complaint: Cough,Body aches Time Seen by Provider: 12/21/21 00:36 Source: patient, RN notes reviewed Mode of arrival: ambulatory Limitations: no limitations - History of Present Illness Initial comments: This is a pleasant 66-year-old male who presents to the emergency department today stating he started getting shaking chills earlier in the day. His also had a dry cough. Patient does have a history of diabetes mellitus. Patient not vaccinated against COVID-19. Patient denies any shortness of breath or chest pain. Taking fluids but diminished appetite. No abdominal pain No headache, no changes in vision or hearing, no sore throat or difficulty with speech, no neck pain, no chest pain or shortness of breath, no abdominal pain, no nausea or vomiting, no changes in urination or bowel movements, no numbness or tingling, no extremity pain, no skin rashes or lesions. - Related Data Home Medications Medication Instructions Recorded Confirmed Atorvastatin [Lipitor] 10 mg PO HS 12/16/14 12/31/20 Primidone 150 mg PO BID 12/16/14 12/31/20 sitaGLIPtin [Januvia] 100 mg PO AC-SUPPER 12/16/14 12/31/20 Gabapentin 600 mg PO BID 09/17/16 12/31/20 metFORMIN HCL [Glucophage] 1,000 mg PO AC-BID 09/17/16 12/31/20 Pioglitazone [Actos] 30 mg PO AC-SUPPER 02/13/20 12/31/20 Glimepiride [Amaryl] 4 mg PO AC-BID 03/13/20 12/31/20 Aspirin EC [Ecotrin] 325 mg PO DAILY 12/31/20 12/31/20 Baclofen [Lioresal] 10 mg PO BID PRN 12/31/20 12/31/20 Previous Rx's Medication Instructions Recorded Meclizine [Antivert] 12.5 mg PO TID PRN #30 tab 01/01/21 amLODIPine [Norvasc] 10 mg PO DAILY #30 tab 01/01/21 Allergies Allergy/AdvReac Type Severity Reaction Status Date / Time No Known Allergies Allergy Verified 02/12/21 20:31 Review of Systems ROS Statement: Those systems with pertinent positive or pertinent negative responses have been documented in the HPI. ROS Other: All systems not noted in ROS Statement are negative. Past Medical History Past Medical History: CVA/TIA, GERD/Reflux, Hyperlipidemia, Neurologic Disorder, Seizure Disorder Additional Past Medical History / Comment(s): carpal tunnel neuropath History of Any Multi-Drug Resistant Organisms: None Reported Past Surgical History: Orthopedic Surgery Additional Past Surgical History / Comment(s): neuropathy, last seizure 1986, "born with convulsions", lymph nodes removed left cervical, left knee surgery Past Anesthesia/Blood Transfusion Reactions: No Reported Reaction Past Psychological History: No Psychological Hx Reported Smoking Status: Never smoker Past Alcohol Use History: None Reported Past Drug Use History: None Reported General Exam - General Exam Comments Initial Comments: Patient appears to be minimally ill but not toxic. Adequate peripheral perfusion. Capillary refills less than 2 seconds. Vital signs noted, oxygen saturations 99% on room air. No tachypnea Limitations: no limitations General appearance: alert, in no apparent distress Head exam: Present: atraumatic, normocephalic, normal inspection Eye exam: Present: normal appearance, PERRL, EOMI. Absent: scleral icterus, conjunctival injection, periorbital swelling ENT exam: Present: normal exam, normal oropharynx, mucous membranes moist, TM's normal bilaterally, normal external ear exam. Absent: mucous membranes dry Neck exam: Present: normal inspection, full ROM. Absent: tenderness, meningismus, lymphadenopathy Respiratory exam: Present: normal lung sounds bilaterally. Absent: respiratory distress, wheezes, rales, rhonchi, stridor, chest wall tenderness, decreased breath sounds, prolonged expiratory Cardiovascular Exam: Present: regular rate, normal rhythm, normal heart sounds. Absent: systolic murmur, diastolic murmur, rubs, gallop, clicks GI/Abdominal exam: Present: soft, normal bowel sounds. Absent: distended, tenderness, guarding, rebound, rigid Extremities exam: Present: normal inspection, full ROM, normal capillary refill. Absent: tenderness, pedal edema, joint swelling, calf tenderness Back exam: Present: normal inspection Neurological exam: Present: alert, oriented X3, CN II-XII intact Psychiatric exam: Present: normal affect, normal mood Skin exam: Present: warm, dry, intact, normal color. Absent: rash Course Vital Signs 12/20/21 19:54 Temperature 98.2 F Pulse Rate 75 Respiratory 16 Rate Blood Pressure 145/80 O2 Sat by Pulse 99 Oximetry - Reevaluation(s) Reevaluation #1: 12/21/21 02:49 Medical record is reviewed Symptoms are improved here in the emergency department Patient is informed of results and questions answered Patient in no distress Medical Decision Making - Medical Decision Making Patient counseled on quarantine measures. Patient found to have a sodium of 123. Blood met the patient for gradual correction. Patient generally weak. Patient having difficulty ambulating due to general weakness. Patient does have COVID-19 but is oxygenating well. Admission for hyponatremia. Patient did receive a dose of the monoclonal antibody. - Lab Data Result diagrams: 12/21/21 01:03 12/21/21 01:03 Lab Results 12/20/21 12/20/21 12/21/21 Range/Units 19:59 19:59 01:03 WBC 4.2 (3.8-10.6) k/uL RBC 3.69 L (4.30-5.90) m/uL Hgb 12.3 L (13.0-17.5) gm/dL Hct 35.4 L (39.0-53.0) % MCV 96.1 (80.0-100.0) fL MCH 33.2 (25.0-35.0) pg MCHC 34.6 (31.0-37.0) g/dL RDW 13.1 (11.5-15.5) % Plt Count 273 (150-450) k/uL MPV 6.6 Neutrophils % (Manual) 66 % Band Neuts % (Manual) 2 % Lymphocytes % (Manual) 19 % Monocytes % (Manual) 13 % Neutrophils # (Manual) 2.80 (1.3-7.7) k/uL Lymphocytes # (Manual) 0.80 L (1.0-4.8) k/uL Monocytes # (Manual) 0.55 (0-1.0) k/uL Nucleated RBCs 0 (0-0) /100 WBC Manual Slide Review Performed Sodium (137-145) mmol/L Potassium (3.5-5.1) mmol/L Chloride (98-107) mmol/L Carbon Dioxide (22-30) mmol/L Anion Gap mmol/L BUN (9-20) mg/dL Creatinine (0.66-1.25) mg/dL Est GFR (CKD-EPI)AfAm (>60 ml/min/1.73 sqM) Est GFR (CKD-EPI)NonAf (>60 ml/min/1.73 sqM) Glucose (74-99) mg/dL Calcium (8.4-10.2) mg/dL Total Bilirubin (0.2-1.3) mg/dL AST (17-59) U/L ALT (4-49) U/L Alkaline Phosphatase (38-126) U/L Total Protein (6.3-8.2) g/dL Albumin (3.5-5.0) g/dL Urine Color Urine Appearance (Clear) Urine pH (5.0-8.0) Ur Specific [place] (1.001-1.035) Urine Protein (Negative) Urine Glucose (UA) (Negative) Urine Ketones (Negative) Urine Blood (Negative) Urine Nitrite (Negative) Urine Bilirubin (Negative) Urine Urobilinogen (<2.0) mg/dL Ur Leukocyte Esterase (Negative) Urine RBC (0-5) /hpf Urine WBC (0-5) /hpf Hyaline Casts (0-2) /lpf Urine Mucus (None) /hpf Coronavirus (PCR) Detected A (Not Detectd) Influenza Type A RNA Not Detected (Not Detectd) Influenza Type B (PCR) Not Detected (Not Detectd) 12/21/21 12/21/21 Range/Units 01:03 02:21 WBC (3.8-10.6) k/uL RBC (4.30-5.90) m/uL Hgb (13.0-17.5) gm/dL Hct (39.0-53.0) % MCV (80.0-100.0) fL MCH (25.0-35.0) pg MCHC (31.0-37.0) g/dL RDW (11.5-15.5) % Plt Count (150-450) k/uL MPV Neutrophils % (Manual) % Band Neuts % (Manual) % Lymphocytes % (Manual) % Monocytes % (Manual) % Neutrophils # (Manual) (1.3-7.7) k/uL Lymphocytes # (Manual) (1.0-4.8) k/uL Monocytes # (Manual) (0-1.0) k/uL Nucleated RBCs (0-0) /100 WBC Manual Slide Review Sodium 123 L (137-145) mmol/L Potassium 3.8 (3.5-5.1) mmol/L Chloride 90 L (98-107) mmol/L Carbon Dioxide 22 (22-30) mmol/L Anion Gap 11 mmol/L BUN 7 L (9-20) mg/dL Creatinine 0.72 (0.66-1.25) mg/dL Est GFR (CKD-EPI)AfAm >90 (>60 ml/min/1.73 sqM) Est GFR (CKD-EPI)NonAf >90 (>60 ml/min/1.73 sqM) Glucose 79 (74-99) mg/dL Calcium 8.9 (8.4-10.2) mg/dL Total Bilirubin 0.4 (0.2-1.3) mg/dL AST 24 (17-59) U/L ALT 15 (4-49) U/L Alkaline Phosphatase 85 (38-126) U/L Total Protein 7.5 (6.3-8.2) g/dL Albumin 4.0 (3.5-5.0) g/dL Urine Color Yellow Urine Appearance Clear (Clear) Urine pH 7.5 (5.0-8.0) Ur Specific [place] 1.010 (1.001-1.035) Urine Protein 1+ H (Negative) Urine Glucose (UA) Negative (Negative) Urine Ketones 1+ H (Negative) Urine Blood Negative (Negative) Urine Nitrite Negative (Negative) Urine Bilirubin Negative (Negative) Urine Urobilinogen <2.0 (<2.0) mg/dL Ur Leukocyte Esterase Negative (Negative) Urine RBC 1 (0-5) /hpf Urine WBC <1 (0-5) /hpf Hyaline Casts 1 (0-2) /lpf Urine Mucus Rare H (None) /hpf Coronavirus (PCR) (Not Detectd) Influenza Type A RNA (Not Detectd) Influenza Type B (PCR) (Not Detectd) - Radiology Data Radiology results: report reviewed, image reviewed Disposition Clinical Impression: COVID-19, Hyponatremia, Generalized weakness Disposition: ADMITTED IP TO THIS [facility] Condition: Fair Time of Disposition: 02:53 Decision to Admit Reason: Admit from EC Decision Time: 02:53
--- NOTE | 2021-12-21 01:32 | XR ---
EXAMINATION TYPE: XR chest 1V portable DATE OF EXAM: 12/21/2021 COMPARISON: 12/31/2020 HISTORY: Cough TECHNIQUE: FINDINGS: Heart is normal. Lungs are clear of consolidation. There is some coarsening of the intersti tial markings in both lungs and more on the right side. There is mild pleural thickening at the lung apices. There are no hilar masses. Bony thorax is intact. IMPRESSION: Pulmonary fibrotic changes which have progressed compared to old exam. Normal heart. No h eart failure.
[2021-12-21 01:36] LABS: HCT 35.4 % (39.0-53.0); HGB 12.3 gm/dL (13.0-17.5); MCH 33.2 pg (25.0-35.0); MCHC 34.6 g/dL (31.0-37.0); MCV 96.1 fL (80.0-100.0); Mean Platelet Volume 6.6; Platelet Count 273 k/uL (150-450); RBC 3.69 m/uL (4.30-5.90); RDW 13.1 % (11.5-15.5); WBC 4.2 k/uL (3.8-10.6)
[2021-12-21 01:38] LABS: ALT 15 U/L (4-49); AST 24 U/L (17-59); African American GFR (CKD) >90 (>60 ml/min/1.73 sqM); Alkaline Phosphatase 85 U/L (38-126); Anion Gap 11 mmol/L; Blood Urea Nitrogen 7 mg/dL (9-20); Calcium 8.9 mg/dL (8.4-10.2); Carbon Dioxide 22 mmol/L (22-30); Chloride 90 mmol/L (98-107); Glucose 79 mg/dL (74-99); Non-African American GFR(CKD) >90 (>60 ml/min/1.73 sqM); Potassium 3.8 mmol/L (3.5-5.1); Sodium 123 mmol/L (137-145); Total Bilirubin 0.4 mg/dL (0.2-1.3); Total Protein 7.5 g/dL (6.3-8.2)
[2021-12-21 02:34] LABS: Band Neutrophils % 2 %; Monocytes # (M) 0.55 k/uL (0-1.0); Neutrophils % (M) 66 %; Nucleated Red Blood Cells 0 /100 WBC (0-0); Total Cells Counted 100
[2021-12-21] MEDS ORDERED: ACETAMINOPHEN TAB 325 MG TAB PO PRN (02:54)
[2021-12-21] MEDS ORDERED: NALOXONE 0.4 MG/ML 1 ML VIAL IV PRN (02:54)
[2021-12-21] MEDS ORDERED: ONDANSETRON 4 MG/2 ML VIAL IVP PRN (02:54)
[2021-12-21] MEDS ORDERED: BACLOFEN 10 MG TAB PO PRN (02:59)
[2021-12-21] MEDS ORDERED: GABAPENTIN 300 MG CAP PO STA (02:59)
[2021-12-21 03:01] LABS: Appearance,Urine Clear (Clear); Bilirubin,Urine Negative (Negative); Blood,Urine Negative (Negative); Color,Urine Yellow; Glucose,Urine (UA) Negative (Negative); Hyaline Casts,Urine 1 /lpf (0-2); Ketones,Urine 1+ (Negative); Leukocyte Esterase,Urine Negative (Negative); Mucus,Urine Rare /hpf; Nitrite,Urine Negative (Negative); PH, Urine 7.5 (5.0-8.0); Protein,Urine 1+ (Negative); RBC,Urine 1 /hpf (0-5); Urobilinogen,Urine <2.0 mg/dL (<2.0); WBC,Urine <1 /hpf (0-5)
[2021-12-21] MEDS: SODIUM CHLORIDE 0.9% 1,000 ML IV SCH ×2 (03:18→20:53)
[2021-12-21 05:01] LABS: Basophils % (A) 1 %; Eosinophils % (A) 0 %; HCT 35.7 % (39.0-53.0); HGB 12.1 gm/dL (13.0-17.5); Lymphocytes # (A) 0.6 k/uL (1.0-4.8); Lymphocytes % (A) 16 %; MCH 33.1 pg (25.0-35.0); MCHC 33.8 g/dL (31.0-37.0); MCV 97.8 fL (80.0-100.0); Mean Platelet Volume 7.1; Monocytes # (A) 0.6 k/uL (0-1.0); Monocytes % (A) 14 %; Neutrophils # (A) 2.5 k/uL (1.3-7.7); Neutrophils % (A) 66 %; Platelet Count 274 k/uL (150-450); RBC 3.65 m/uL (4.30-5.90); RDW 13.3 % (11.5-15.5); WBC 3.8 k/uL (3.8-10.6)
[2021-12-21 07:11] LABS: Glucose,Whole Blood 131 mg/dL (75-99)
[2021-12-21] MEDS: INSULIN ASPART (NovoLOG) 100 UNIT/ML VIAL SQ SCH ×4 (07:57→20:30)
[2021-12-21] MEDS: ENOXAPARIN 40 MG/0.4 ML SYRINGE SQ SCH (09:23)
[2021-12-21 11:35] LABS: Glucose,Whole Blood 130 mg/dL (75-99)
[2021-12-21] MEDS ORDERED: RX INFO: IV CONTRAST WAS GIVEN 1 EACH MISC MISCELLANE PRN (13:17)
[2021-12-21] MEDS: CHOLECALCIFEROL 25 MCG (1000 IU) TABLET PO SCH (13:26)
[2021-12-21] MEDS: ASCORBIC ACID 500 MG TAB PO SCH (13:26)
--- NOTE | 2021-12-21 14:25 | CT ---
EXAMINATION TYPE: CT chest w con DATE OF EXAM: 12/21/2021 COMPARISON: None HISTORY: siadh lung ca? CT DLP: 271.1 mGycm, Automated exposure control for dose reduction was used. CONTRAST: Performed injected with 100 mL of Isovue 300. TECHNIQUE: Axial images were obtained at 5 mm thick sections. Reconstructed images are reviewed on [employer] computer in the coronal plane. FINDINGS: Portion of the thyroid visualized is normal. Emphysematous blebs and bullae are in the upper lung mcmullen bilaterally. This appears moderately exte nsive. Some minimal compressive atelectasis may be within the posterior dependent lung bases. There i s a small densities in the lung windows in the right midlung measuring 0.5 cm each. Series 204 images 30-31. Additional punctate nodules are in the region example series 204 image 33. An ill-defined nod ules in the periphery of the left upper lung field measuring 0.4 cm. Series 204 image 19. Peripheral increase infiltrate is present within the mid left lung. Series 204 image 33. No enlarged mediastinal or hilar adenopathy is evident. Large lymph node is within the aortopulmoni c window measuring 0.8 cm. The ascending aorta diameter at the level of the main pulmonary artery is 3.5 cm. The main pulmonary artery diameter at the bifurcation is 2.9 cm. Coronary artery calcificati on is present. Limited CT sections are obtained through the upper abdomen. There is a low-density rounded area measu ring 1.1 cm and 7 Hounsfield units can be compatible with a hepatic cyst. Additional smaller hypodens ities are present most likely on the basis of hepatic cysts. Upper abdomen otherwise appears unremark able. The adrenal glands appear normal. IMPRESSIONS: 1. Scattered small nodules and focal areas of pneumonitis discussed above. Findings are nonspecific. 2. Suspected hepatic cysts. 3. COPD
--- NOTE | 2021-12-21 15:02 | P.CNPUL ---
History of Present Illness Consult date: 12/21/21 Requesting physician: Sudarshan Atkins Reason for consult: other Chief complaint: COVID-19 infection, hyponatremia History of present illness: This is a 66-year-old white male patient with past medical history of CVA, seizure disorder, GERD, hyperlipidemia, diabetes mellitus, nonsmoker, who presented emergency department on 12/20/2021 for evaluation of shaking chills that started earlier on the same day. Patient reports a dry cough, no complaints of chest pain. No nausea or vomiting, he has been able to take in fluids but has had diminished appetite. No abdominal pain. Patient tested positive for COVID-19, and negative for influenza A and B. Patient denies being vaccinated against COVID-19. His chest x-ray in the emergency department showed coarsening of the interstitial markings in both lungs and more so on the right the possibility of pulmonary fibrotic changes. Lab evaluation showed normal white count of 4.2, hemoglobin was 12.3, lymphocyte count of 0.80, sodium was 123, potassium 3.8, chloride is 90, CO2 22, BUN is 7, creatinine 0.72. LFTs were within normal limits, urinalysis showed 1+ protein and 1+ ketones without evidence of infection. Urine osmolality was 258, and serum osmolality was 257. TSH was within normal limits at 1.580, and cortisol was 15. Patient was given 1 L in IV fluid bolus in the emergency department, he is 0.9 normal saline infusing at 75 ML per hour. He was started on vitamin C, vitamin D, and prophylactic dose Lovenox. He is breathing comfortably, room air pulse ox of 98%. CT chest with contrast was completed and showed scattered small nodules in focal areas of pneumonitis, findings were nonspecific, COPD, and suspected he patic cysts. Neurologically patient is intact, he is answering questions appropriately, no lethargy, no seizures. His recent blood work from 09/28/2021 showed serum sodium of 129, patient denies any alcohol consumption. No nausea or vomiting, no diarrhea. No history of cancer. Patient is not on any diuretics at home. Continues on IV hydration A 75 ML per hour, we'll request nephrology consultation Review of Systems All systems: negative Constitutional: Reports chills, Denies fever Eyes: denies blurred vision, denies pain Ears, nose, mouth and throat: Denies headache, Denies sore throat Cardiovascular: Denies chest pain, Denies shortness of breath Respiratory: Reports cough Gastrointestinal: Denies abdominal pain, Denies diarrhea, Denies nausea, Denies vomiting Musculoskeletal: Denies myalgias Integumentary: Denies pruritus, Denies rash Neurological: Denies numbness, Denies weakness Psychiatric: Denies anxiety, Denies depression Endocrine: Denies fatigue, Denies weight change Past Medical History Past Medical History: CVA/TIA, GERD/Reflux, Hyperlipidemia, Neurologic Disorder, Seizure Disorder Additional Past Medical History / Comment(s): carpal tunnel neuropath History of Any Multi-Drug Resistant Organisms: None Reported Past Surgical History: Orthopedic Surgery Additional Past Surgical History / Comment(s): neuropathy, last seizure 1986, "born with convulsions", lymph nodes removed left cervical, left knee surgery Past Anesthesia/Blood Transfusion Reactions: No Reported Reaction Past Psychological History: No Psychological Hx Reported Smoking Status: Never smoker Past Alcohol Use History: None Reported Past Drug Use History: None Reported - Past Family History Mother History Unknown: Yes Family Medical History: Congestive Heart Failure (CHF) Father History Unknown: Yes Family Medical History: Diabetes Mellitus Medications and Allergies Home Medications Medication Instructions Recorded Confirmed Type Atorvastatin [Lipitor] 10 mg PO HS 12/16/14 12/21/21 History Primidone 150 mg PO BID 12/16/14 12/21/21 History sitaGLIPtin [Januvia] 100 mg PO W/SUPPER 12/16/14 12/21/21 History Gabapentin 600 mg PO TID 09/17/16 12/21/21 History metFORMIN HCL [Glucophage] 1,000 mg PO AC-BID 09/17/16 12/21/21 History Pioglitazone [Actos] 30 mg PO W/SUPPER 02/13/20 12/21/21 History Glimepiride [Amaryl] 4 mg PO AC-BID 03/13/20 12/21/21 History Aspirin EC [Ecotrin] 325 mg PO DAILY 12/31/20 12/21/21 History Ergocalciferol [Vitamin D2 (1250 1,250 mcg PO TU 12/21/21 12/21/21 History Mcg = 31008 Iu)] lisinopriL [Zestril] 2.5 mg PO DAILY 12/21/21 12/21/21 History Allergies Allergy/AdvReac Type Severity Reaction Status Date / Time No Known Allergies Allergy Verified 12/21/21 07:41 Physical Exam Vitals: Vital Signs Temp Pulse Pulse Resp BP BP Pulse Ox 12/21/21 08:00 98.7 F 71 16 174/84 98 12/21/21 04:56 72 18 147/84 96 12/21/21 03:00 71 18 150/72 98 12/20/21 19:54 98.2 F 75 16 145/80 99 Intake and Output 12/20/21 12/21/21 12/21/21 22:59 06:59 14:59 Output Total 700 Balance -700 Output: Urine 700 Other: Voiding Method Toilet Urinal Weight 63.503 kg 63.503 kg GENERAL EXAM: Alert, very pleasant, 66-year-old, resting comfortably in bed, on room air with a pulse ox of 98% comfortable in no apparent distress. HEAD: Normocephalic/atraumatic. EYES: Normal reaction of pupils, equal size. Conjunctiva pink, sclera white. NOSE: Clear with pink turbinates. THROAT: No erythema or exudates. NECK: No masses, no JVD, no thyroid enlargement, no adenopathy. CHEST: No chest wall deformity. Symmetrical expansion. LUNGS: Equal air entry with no crackles, wheeze, rhonchi or dullness. CVS: Regular rate and rhythm, normal S1 and S2, no gallops, no murmurs, no rubs ABDOMEN: Soft, nontender. No hepatosplenomegaly, normal bowel sounds, no guarding or rigidity. EXTREMITIES: No clubbing, no edema, no cyanosis, 2+ pulses and upper and lower extremities. MUSCULOSKELETAL: Muscle strength and tone normal. SPINE: No scoliosis or deformity SKIN: No rashes CENTRAL NERVOUS SYSTEM: Alert and oriented -3. No focal deficits, tone is normal in all 4 extremities. PSYCHIATRIC: Alert and oriented -3. Appropriate affect. Intact judgment and insight. Results - Laboratory Findings CBC and BMP: 12/21/21 04:34 12/21/21 12:45 Abnormal lab findings: Abnormal Labs 12/20/21 12/21/21 12/21/21 19:59 01:03 01:03 RBC 3.69 L Hgb 12.3 L Hct 35.4 L Lymphocytes # Lymphocytes # (Manual) 0.80 L Sodium 123 L Chloride 90 L BUN 7 L POC Glucose (mg/dL) Osmolality Urine Protein Urine Ketones Urine Mucus Coronavirus (PCR) Detected A 12/21/21 12/21/21 12/21/21 02:21 04:34 04:34 RBC 3.65 L Hgb 12.1 L Hct 35.7 L Lymphocytes # 0.6 L Lymphocytes # (Manual) Sodium Chloride BUN POC Glucose (mg/dL) Osmolality 257 L Urine Protein 1+ H Urine Ketones 1+ H Urine Mucus Rare H Coronavirus (PCR) 12/21/21 12/21/21 12/21/21 07:10 11:34 12:45 RBC Hgb Hct Lymphocytes # Lymphocytes # (Manual) Sodium 127 L Chloride BUN POC Glucose (mg/dL) 131 H 130 H Osmolality Urine Protein Urine Ketones Urine Mucus Coronavirus (PCR) - Diagnostic Findings Chest x-ray: report reviewed, image reviewed CT scan - chest: report reviewed, image reviewed Assessment and Plan Plan: Assessment: #1. Acute COVID-19 infection, computed tomography scan of the chest showing focal areas of pneumonitis, scattered small nodules. Findings are nonspecific. Patient is on room air, no significant pulmonary symptoms. Continues on supportive treatment at this time, no need for steroids or Remdesivir right now. Patient is not vaccinated against COVID-19 #2. Hyponatremia, possibly hypovolemic. Acute on chronic possibly related to diminished oral intake #3. Previous history of CVA #4. Seizure disorder #5. Hyperlipidemia #6. Emphysema seen on computed tomography scan of the chest from 12/21/2021 #7. No history of EtOH #8. Carpal tunnel syndrome #9. Diabetes mellitus type 2 Plan: Patient is not a candidate for any steroids or Remdesivir Primarily presented with symptoms of chills, diminished appetite Chest x-ray a computed tomography scan of the chest have been reviewed Computed tomography scan showed emphysematous blebs and ambulate in the upper lungs bilaterally Punctate nodules in the left upper lung field, no mediastinal or hilar adenopathy, no evidence of a lung mass Continue with IV hydration Consult nephrology for hyponatremia Patient has a chronic component to hyponatremia We'll defer on management to nephrology Stat TSH and cortisol levels were within normal limits Continue supportive treatment, IV fluids, multivitamins We'll send a d-dimer level, inflammatory markers We will follow I have personally seen and examined the patient, performed the documentation and the assessment and plan as written. Number of minutes spent on the visit: [15] Time with Patient: Greater than 30
[2021-12-21 16:48] LABS: Glucose,Whole Blood 99 mg/dL (75-99)
--- NOTE | 2021-12-21 17:05 | P.HPIM ---
History of Present Illness H&P Date: 12/21/21 Chief Complaint: COVID-19 infection 66-year-old white male patient with past medical history of CVA, seizure disorder, GERD, hyperlipidemia, diabetes mellitus, who presented emergency department for evaluation of shaking chills along with a dry cough, no complaints of chest pain. No nausea or vomiting, he has been able to take in fluids but has had diminished appetite. No abdominal pain. Patient tested positive for COVID-19, and negative for influenza A and B. Patient denies being vaccinated against COVID-19. Chest x-ray in the emergency department showed coarsening of the interstitial markings in both lungs and more so on the right the possibility of pulmonary fibrotic changes. Lab evaluation showed normal white count of 4.2, hemoglobin was 12.3, lymphocyte count of 0.80, sodium was 123, potassium 3.8, chloride is 90, CO2 22, BUN is 7, creatinine 0.72. LFTs were within normal limits, urinalysis showed 1+ protein and 1+ ketones without evidence of infection. Urine osmolality was 258, and serum osmolality was 257. TSH was within normal limits at 1.580, and cortisol was 15. CT chest with contrast was completed and showed scattered small nodules in focal areas of pneumonitis, findings were nonspecific, COPD, and suspected hepatic cysts. Review of Systems REVIEW OF SYSTEMS: CONSTITUTIONAL: No fever, no malaise, no fatigue. HEENT: No recent visual problems or hearing problems. Denied any sore throat. CARDIOVASCULAR: No chest pain, orthopnea, PND, no palpitations, no syncope. PULMONARY: No shortness of breath, no cough, no hemoptysis. GASTROINTESTINAL: No diarrhea, no nausea, no vomiting, no abdominal pain. NEUROLOGICAL: No headaches, no weakness, no numbness. HEMATOLOGICAL: Denies any bleeding or petechiae. GENITOURINARY: Denies any burning micturition, frequency, or urgency. MUSCULOSKELETAL/RHEUMATOLOGICAL: Denies any joint pain, swelling, or any muscle pain. ENDOCRINE: Denies any polyuria or polydipsia. The rest of the 14-point review of systems is negative. Past Medical History Past Medical History: CVA/TIA, GERD/Reflux, Hyperlipidemia, Neurologic Disorder, Seizure Disorder Additional Past Medical History / Comment(s): carpal tunnel neuropath History of Any Multi-Drug Resistant Organisms: None Reported Past Surgical History: Orthopedic Surgery Additional Past Surgical History / Comment(s): neuropathy, last seizure 1986, "born with convulsions", lymph nodes removed left cervical, left knee surgery Past Anesthesia/Blood Transfusion Reactions: No Reported Reaction Past Psychological History: No Psychological Hx Reported Smoking Status: Never smoker Past Alcohol Use History: None Reported Past Drug Use History: None Reported - Past Family History Mother History Unknown: Yes Family Medical History: Congestive Heart Failure (CHF) Father History Unknown: Yes Family Medical History: Diabetes Mellitus Medications and Allergies Home Medications Medication Instructions Recorded Confirmed Type Atorvastatin [Lipitor] 10 mg PO HS 12/16/14 12/21/21 History Primidone 150 mg PO BID 12/16/14 12/21/21 History sitaGLIPtin [Januvia] 100 mg PO W/SUPPER 12/16/14 12/21/21 History Gabapentin 600 mg PO TID 09/17/16 12/21/21 History metFORMIN HCL [Glucophage] 1,000 mg PO AC-BID 09/17/16 12/21/21 History Pioglitazone [Actos] 30 mg PO W/SUPPER 02/13/20 12/21/21 History Glimepiride [Amaryl] 4 mg PO AC-BID 03/13/20 12/21/21 History Aspirin EC [Ecotrin] 325 mg PO DAILY 12/31/20 12/21/21 History Ergocalciferol [Vitamin D2 (1250 1,250 mcg PO TU 12/21/21 12/21/21 History Mcg = 19399 Iu)] lisinopriL [Zestril] 2.5 mg PO DAILY 12/21/21 12/21/21 History Allergies Allergy/AdvReac Type Severity Reaction Status Date / Time No Known Allergies Allergy Verified 12/21/21 07:41 Physical Exam Vitals: Vital Signs Temp Pulse Pulse Resp BP BP Pulse Ox 12/21/21 08:00 98.7 F 71 16 174/84 98 12/21/21 04:56 72 18 147/84 96 12/21/21 03:00 71 18 150/72 98 12/20/21 19:54 98.2 F 75 16 145/80 99 Intake and Output 12/20/21 12/21/21 12/21/21 22:59 06:59 14:59 Other: Weight 63.503 kg 63.503 kg PHYSICAL EXAMINATION: GENERAL: The patient is alert and oriented x3, not in any acute distress. Well developed, well nourished. HEENT: Pupils are round and equally reacting to light. EOMI. No scleral icterus. No conjunctival pallor. Normocephalic, atraumatic. No pharyngeal erythema. No thyromegaly. CARDIOVASCULAR: S1 and S2 present. No murmurs, rubs, or gallops. PULMONARY: Chest is clear to auscultation, no wheezing or crackles. ABDOMEN: Soft, nontender, nondistended, normoactive bowel sounds. No palpable organomegaly. MUSCULOSKELETAL: No joint swelling or deformity. EXTREMITIES: No cyanosis, clubbing, or pedal edema. NEUROLOGICAL: Gross neurological examination did not reveal any focal deficits. SKIN: No rashes. Results CBC & Chem 7: 12/21/21 04:34 12/21/21 12:45 Labs: Abnormal Lab Results - Last 24 Hours (Table) 12/20/21 12/21/21 12/21/21 Range/Units 19:59 01:03 01:03 RBC 3.69 L (4.30-5.90) m/uL Hgb 12.3 L (13.0-17.5) gm/dL Hct 35.4 L (39.0-53.0) % Lymphocytes # (1.0-4.8) k/uL Lymphocytes # (Manual) 0.80 L (1.0-4.8) k/uL Sodium 123 L (137-145) mmol/L Chloride 90 L (98-107) mmol/L BUN 7 L (9-20) mg/dL POC Glucose (mg/dL) (75-99) mg/dL Osmolality (280-301) mosm/kg Urine Protein (Negative) Urine Ketones (Negative) Urine Mucus (None) /hpf Coronavirus (PCR) Detected A (Not Detectd) 12/21/21 12/21/21 12/21/21 Range/Units 02:21 04:34 04:34 RBC 3.65 L (4.30-5.90) m/uL Hgb 12.1 L (13.0-17.5) gm/dL Hct 35.7 L (39.0-53.0) % Lymphocytes # 0.6 L (1.0-4.8) k/uL Lymphocytes # (Manual) (1.0-4.8) k/uL Sodium (137-145) mmol/L Chloride (98-107) mmol/L BUN (9-20) mg/dL POC Glucose (mg/dL) (75-99) mg/dL Osmolality 257 L (280-301) mosm/kg Urine Protein 1+ H (Negative) Urine Ketones 1+ H (Negative) Urine Mucus Rare H (None) /hpf Coronavirus (PCR) (Not Detectd) 12/21/21 Range/Units 07:10 RBC (4.30-5.90) m/uL Hgb (13.0-17.5) gm/dL Hct (39.0-53.0) % Lymphocytes # (1.0-4.8) k/uL Lymphocytes # (Manual) (1.0-4.8) k/uL Sodium (137-145) mmol/L Chloride (98-107) mmol/L BUN (9-20) mg/dL POC Glucose (mg/dL) 131 H (75-99) mg/dL Osmolality (280-301) mosm/kg Urine Protein (Negative) Urine Ketones (Negative) Urine Mucus (None) /hpf Coronavirus (PCR) (Not Detectd) Thrombosis Risk Factor Assmnt - Choose All That Apply Any of the Below Risk Factors Present?: No Other Risk Factors: Yes Each Risk Factor Represents 2 Points: Age 61-74 years Thrombosis Risk Factor Assessment Total Risk Factor Score: 2 Thrombosis Risk Factor Assessment Level: Low Risk Assessment and Plan Assessment: 1. Acute COVID-19 infection - CT of the chest completed in ED reveals focal areas of pneumonitis along with scattered small nodule - Patient is saturating above 95% on room air - We will start patient on IV fluid hydration, vitamin C and vitamin D; consult pulmonary for further recommendations - Patient is not vaccinated against COVID-19 2. Hyponatremia; acute on chronic - Stat TSH and cortisol levels are obtained and are within normal limits - Likely hypovolemic; patient has been placed on IV fluids in form of normal saline; we will monitor sodium levels every 6 hours; consult nephrology for further recommendations 3. Diabetes mellitus type 2; patient takes glimepiride 4 mg twice a day, Tradjenta 5 mg daily with supper and metformin thousand milligrams twice a day along with Actos 30 mg daily 4. Hyperlipidemia; Lipitor 10 mg by mouth daily at bedtime 5. Seizure disorder; Mysoline 150 mg twice a day along with Neurontin 300 mg 3 times a day DVT prophylaxis; SCDs/subcu Lovenox CODE STATUS; full code
[2021-12-21] MEDS: LINAGLIPTIN 5 MG TABLET PO SCH (17:42)
[2021-12-21] MEDS: GLIMEPIRIDE 4 MG TAB PO SCH (17:42)
[2021-12-21] MEDS: GABAPENTIN 300 MG CAP PO SCH (17:42)
[2021-12-21] MEDS: PIOGLITAZONE 30 MG TAB PO SCH (17:42)
[2021-12-21 20:13] LABS: Glucose,Whole Blood 90 mg/dL (75-99)
[2021-12-21] MEDS: ATORVASTATIN 10 MG TAB PO SCH (20:49)
[2021-12-21] MEDS: PRIMIDONE 50 MG TAB PO SCH (20:49)
[2021-12-22 05:12] LABS: Basophils % (A) 1 %; Eosinophils % (A) 0 %; HCT 40.5 % (39.0-53.0); HGB 13.1 gm/dL (13.0-17.5); Lymphocytes # (A) 0.8 k/uL (1.0-4.8); Lymphocytes % (A) 19 %; MCH 31.9 pg (25.0-35.0); MCHC 32.5 g/dL (31.0-37.0); MCV 98.3 fL (80.0-100.0); Mean Platelet Volume 6.6; Monocytes # (A) 0.4 k/uL (0-1.0); Monocytes % (A) 10 %; Neutrophils # (A) 2.7 k/uL (1.3-7.7); Neutrophils % (A) 68 %; Platelet Count 258 k/uL (150-450); RBC 4.12 m/uL (4.30-5.90); RDW 12.7 % (11.5-15.5)
[2021-12-22 05:25] LABS: ALT 20 U/L (4-49); AST 40 U/L (17-59); African American GFR (CKD) >90 (>60 ml/min/1.73 sqM); Albumin/Globulin Ratio 1.1; Alkaline Phosphatase 80 U/L (38-126); Anion Gap 10 mmol/L; Blood Urea Nitrogen 8 mg/dL (9-20); Calcium 8.4 mg/dL (8.4-10.2); Carbon Dioxide 24 mmol/L (22-30); Chloride 93 mmol/L (98-107); Globulin 3.7 g/dL; Glucose 108 mg/dL (74-99); Magnesium 1.7 mg/dL (1.6-2.3); Non-African American GFR(CKD) >90 (>60 ml/min/1.73 sqM); Potassium 3.9 mmol/L (3.5-5.1); Sodium 127 mmol/L (137-145); Total Bilirubin 0.4 mg/dL (0.2-1.3); Total Protein 7.7 g/dL (6.3-8.2)
[2021-12-22 06:18] LABS: Glucose,Whole Blood 125 mg/dL (75-99)
[2021-12-22] MEDS: INSULIN ASPART (NovoLOG) 100 UNIT/ML VIAL SQ SCH ×4 (07:22→21:17)
[2021-12-22] MEDS: SODIUM CHLORIDE 0.9% 1,000 ML IV SCH ×2 (07:41→20:26)
[2021-12-22] MEDS: ASPIRIN 325 MG TAB PO SCH (07:43)
[2021-12-22] MEDS: PRIMIDONE 50 MG TAB PO SCH ×2 (07:43→21:35)
[2021-12-22] MEDS: CHOLECALCIFEROL 25 MCG (1000 IU) TABLET PO SCH (07:44)
[2021-12-22] MEDS: GABAPENTIN 300 MG CAP PO SCH ×3 (07:44→21:35)
[2021-12-22] MEDS: GLIMEPIRIDE 4 MG TAB PO SCH ×2 (07:44→16:19)
[2021-12-22] MEDS: ASCORBIC ACID 500 MG TAB PO SCH (07:45)
[2021-12-22] MEDS: ENOXAPARIN 40 MG/0.4 ML SYRINGE SQ SCH (07:45)
--- NOTE | 2021-12-22 08:40 | P.NPCON ---
History of Present Illness - Reason for Consult Consult date: 12/22/21 hyponatremia - Chief Complaint Covid-19, hyponatremia - History of Present Illness This is a 66-year-old male seen in consultation because of hyponatremia sodium was 123. Workup has shown a normal TSH at 1.58 and cortisol level at 15. Urine osmolality is 258 and urine sodium is 90. Patient currently is on normal saline. Sodium improved from 123 09/18/2027 yesterday and this morning is 127 Came in because of COVID-!(, With chills and dry cough. Some loose stools in small amounts. No nausea vomiting. No headache no dizziness. Chest x-ray showed pulmonary fibrotic changes with some progression compared to previous exam and a computed tomography scan of the chest showed emphysematous bullae. Patient is known with history of seizures and diabetes mellitus. Last seizure was 1986. Past Medical History Past Medical History: CVA/TIA, GERD/Reflux, Hyperlipidemia, Neurologic Disorder, Seizure Disorder Additional Past Medical History / Comment(s): carpal tunnel neuropath History of Any Multi-Drug Resistant Organisms: None Reported Past Surgical History: Orthopedic Surgery Additional Past Surgical History / Comment(s): neuropathy, last seizure 1986, "born with convulsions", lymph nodes removed left cervical, left knee surgery Past Anesthesia/Blood Transfusion Reactions: No Reported Reaction Past Psychological History: No Psychological Hx Reported Smoking Status: Never smoker Past Alcohol Use History: None Reported Past Drug Use History: None Reported - Past Family History Mother History Unknown: Yes Family Medical History: Congestive Heart Failure (CHF) Father History Unknown: Yes Family Medical History: Diabetes Mellitus Medications and Allergies Home Medications Medication Instructions Recorded Confirmed Type Atorvastatin [Lipitor] 10 mg PO HS 12/16/14 12/21/21 History Primidone 150 mg PO BID 12/16/14 12/21/21 History sitaGLIPtin [Januvia] 100 mg PO W/SUPPER 12/16/14 12/21/21 History Gabapentin 600 mg PO TID 09/17/16 12/21/21 History metFORMIN HCL [Glucophage] 1,000 mg PO AC-BID 09/17/16 12/21/21 History Pioglitazone [Actos] 30 mg PO W/SUPPER 02/13/20 12/21/21 History Glimepiride [Amaryl] 4 mg PO AC-BID 03/13/20 12/21/21 History Aspirin EC [Ecotrin] 325 mg PO DAILY 12/31/20 12/21/21 History Ergocalciferol [Vitamin D2 (1250 1,250 mcg PO TU 12/21/21 12/21/21 History Mcg = 76412 Iu)] lisinopriL [Zestril] 2.5 mg PO DAILY 12/21/21 12/21/21 History Allergies Allergy/AdvReac Type Severity Reaction Status Date / Time No Known Allergies Allergy Verified 12/21/21 07:41 Physical Exam Vitals: Vital Signs Temp Pulse Resp BP Pulse Ox 12/22/21 06:46 98.7 F 91 18 133/74 98 12/22/21 00:55 98.0 F 65 18 151/85 93 L 12/21/21 20:45 16 12/21/21 14:00 98.1 F 67 180/86 97 Intake and Output 12/21/21 12/22/21 12/22/21 22:59 06:59 14:59 Output Total 500 Balance -500 Output: Urine 500 Other: Voiding Method Toilet Urinal Currently he is awake alert oriented comfortable HEENT exam no JVP neck is supple no facial asymmetry Lungs are significant for diminished air entry bilaterally with an occasional end expiratory wheezing. Heart sounds unremarkable for any murmur rub gallop normal rhythm Abdomen soft nontender nondistended Extremity exam was no edema Neurologically awake alert oriented. Results - Lab Results Most recent lab results Calcium 8.4 mg/dL (8.4-10.2) 12/22/21 04:34 Magnesium 1.7 mg/dL (1.6-2.3) 12/22/21 04:34 12/22/21 04:34 12/22/21 04:34 Assessment and Plan Plan: Impression 1. 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 2. Admitted with COVID pneumonia 3. History of emphysema and COPD 4. Diabetes mellitus 5. History of seizures Recommendation 1. Continue IV normal saline at 75 an hour and watch his sodium. 2. Fluid restrict to 1000 mL oral 3. Follow-up electrolytes on a daily basis Thank you for this consultation and
[2021-12-22 11:52] LABS: Glucose,Whole Blood 146 mg/dL (75-99)
--- NOTE | 2021-12-22 13:17 | P.PN ---
Subjective Progress Note Date: 12/22/21 This is a 66-year-old white male patient with past medical history of CVA, seizure disorder, GERD, hyperlipidemia, diabetes mellitus, nonsmoker, who presented emergency department on 12/20/2021 for evaluation of shaking chills that started earlier on the same day. Patient reports a dry cough, no complain ts of chest pain. No nausea or vomiting, he has been able to take in fluids but has had diminished appetite. No abdominal pain. Patient tested positive for COVID-19, and negative for influenza A and B. Patient denies being vaccinated against COVID-19. His chest x-ray in the emergency department showed coarsening of the interstitial markings in both lungs and more so on the right the possibility of pulmonary fibrotic changes. Lab evaluation showed normal white count of 4.2, hemoglobin was 12.3, lymphocyte count of 0.80, sodium was 123, potassium 3.8, chloride is 90, CO2 22, BUN is 7, creatinine 0.72. LFTs were within normal limits, urinalysis showed 1+ protein and 1+ ketones without ev idence of infection. Urine osmolality was 258, and serum osmolality was 257. TSH was within normal limits at 1.580, and cortisol was 15. Patient was given 1 L in IV fluid bolus in the emergency department, he is 0.9 normal saline infusing at 75 ML per hour. He was started on vitamin C, vitamin D, and prophylactic dose Lovenox. He is breathing comfortably, room air pulse ox of 98%. CT chest with contrast was completed and showed scattered small nodules in focal areas of pneumonitis, findings were nonspecific, COPD, and suspected hepatic cysts. Neurologically patient is intact, he is answering questions appropriately, no lethargy, no seizures. His recent blood work from 09/28/2021 showed serum sodium of 129, patient denies any alcohol consumption. No nausea or vomiting, no diarrhea. No history of cancer. Patient is not on any diuretics at home. Continues on IV hydration A 75 ML per hour, we'll request nephrology consultation The patient is seen today 12/22/2021 in follow-up on the regular medical floor. He is currently sitting up in a chair at the bedside. Awake and alert in no acute distress. He is doing better today compared to yesterday. He is maintaining O2 saturations in the 90s on room air. He's been afebrile. Hemodynamically stable. White count 4.0. Hemoglobin 13.1. Sodium 127. Potassium 3.9. BUN 8. Creatinine 0.71. Glucose 108. Serum osmolality 257. Urine osmolality initially 258, currently 223. He has been seen by nephrology. Suspect SIADH. He is continued on fluid restrictions of 1000 ML's per day. Remains on 0.9 normal saline at 75 ML's per hour. Objective - Vital Signs Vital signs: Vital Signs Temp 97.7 F 12/22/21 10:19 Pulse 68 12/22/21 10:19 Resp 18 12/22/21 10:19 BP 147/84 12/22/21 10:19 Pulse Ox 95 12/22/21 10:19 Intake & Output 12/21/21 12/22/21 12/22/21 18:59 06:59 18:59 Output Total 700 500 Balance -700 -500 Output: Urine 700 500 Other: Voiding Method Toilet Toilet Toilet Urinal Urinal Urinal - Exam GENERAL EXAM: Alert, pleasant 66-year-old male patient, on room air, comfortable in no apparent distress. HEAD: Normocephalic. EYES: Normal reaction of pupils, equal size. NOSE: Clear with pink turbinates. THROAT: No erythema or exudates. NECK: No masses, no JVD. CHEST: No chest wall deformity. LUNGS: Equal air entry with no crackles, wheeze, rhonchi or dullness. CVS: S1 and S2 normal with no audible murmur, regular rhythm. ABDOMEN: No hepatosplenomegaly, normal bowel sounds, no guarding or rigidity. SPINE: No scoliosis or deformity SKIN: No rashes CENTRAL NERVOUS SYSTEM: No focal deficits, tone is normal in all 4 extremities. EXTREMITIES: There is no peripheral edema. No clubbing, no cyanosis. Peripheral pulses are intact. - Labs CBC & Chem 7: 12/22/21 04:34 12/22/21 04:34 Labs: Abnormal Lab Results - Last 24 Hours (Table) 12/21/21 12/21/21 12/22/21 Range/Units 12:45 17:29 04:34 RBC 4.12 L (4.30-5.90) m/uL Lymphocytes # 0.8 L (1.0-4.8) k/uL Sodium 127 L 128 L (137-145) mmol/L Chloride (98-107) mmol/L BUN (9-20) mg/dL Glucose (74-99) mg/dL POC Glucose (mg/dL) (75-99) mg/dL 12/22/21 12/22/21 12/22/21 Range/Units 04:34 06:15 11:51 RBC (4.30-5.90) m/uL Lymphocytes # (1.0-4.8) k/uL Sodium 127 L (137-145) mmol/L Chloride 93 L (98-107) mmol/L BUN 8 L (9-20) mg/dL Glucose 108 H (74-99) mg/dL POC Glucose (mg/dL) 125 H 146 H (75-99) mg/dL Assessment and Plan Assessment: 1 Acute COVID-19 infection, computed tomography scan of the chest showing focal areas of pneumonitis, scattered small nodules. Findings are nonspecific. Patient is on room air, no significant pulmonary symptoms. Continues on supportive treatment at this time, no need for steroids or Remdesivir right now. Patient is not vaccinated against COVID-19 2 Hyponatremia, possible SIADH. On fluid restrictions. Normal saline at 75 mL per hour 3 Previous history of CVA 4 Seizure disorder 5 Hyperlipidemia 6 Emphysema seen on computed tomography scan of the chest from 12/21/2021 7 No history of EtOH 8 Carpal tunnel syndrome 9 Diabetes mellitus type 2 Plan: The patient was seen and evaluate Stable and on room air Nephrology is following We will continue to follow I have personally seen and examined the patient, performed the documentation and the assessment and plan as written. Number of minutes spent on the visit: 10.
[2021-12-22] MEDS: LINAGLIPTIN 5 MG TABLET PO SCH (16:18)
[2021-12-22] MEDS: PIOGLITAZONE 30 MG TAB PO SCH (16:18)
[2021-12-22 16:42] LABS: Glucose,Whole Blood 133 mg/dL (75-99)
[2021-12-22 20:49] LABS: Glucose,Whole Blood 100 mg/dL (75-99)
--- NOTE | 2021-12-22 20:56 | P.PN ---
Subjective Progress Note Date: 12/22/21 66-year-old white male patient with past medical history of CVA, seizure disorder, GERD, hyperlipidemia, diabetes mellitus, who presented emergency department for evaluation of shaking chills along with a dry cough, no complaints of chest pain. No nausea or vomiting, he has been able to take in fluids but has had diminished appetite. No abdominal pain. Patient tested positive for COVID-19, and negative for influenza A and B. Patient denies being vaccinated against COVID-19. Chest x-ray in the emergency department showed coarsening of the interstitial markings in both lungs and more so on the right the possibility of pulmonary fibrotic changes. Lab evaluation showed normal white count of 4.2, hemoglobin was 12.3, lymphocyte count of 0.80, sodium was 123, potassium 3.8, chloride is 90, CO2 22, BUN is 7, creatinine 0.72. LFTs were within normal limits, urinalysis showed 1+ protein and 1+ ketones without evidence of infection. Urine osmolality was 258, and serum osmolality was 257. TSH was within normal limits at 1.580, and cortisol was 15. CT chest with contrast was completed and showed scattered small nodules in focal areas of pneumonitis, findings were nonspecific, COPD, and suspected hepatic cysts. Objective - Vital Signs Vital signs: Vital Signs Temp 97.7 F 12/22/21 10:19 Pulse 68 12/22/21 10:19 Resp 18 12/22/21 10:19 BP 147/84 12/22/21 10:19 Pulse Ox 95 12/22/21 10:19 Intake & Output 12/21/21 12/22/21 12/22/21 18:59 06:59 18:59 Output Total 700 500 Balance -700 -500 Output: Urine 700 500 Other: Voiding Method Toilet Toilet Toilet Urinal Urinal Urinal - Exam GENERAL: The patient is alert and oriented x3, not in any acute distress. Well developed, well nourished. HEENT: Pupils are round and equally reacting to light. EOMI. No scleral icterus. No conjunctival pallor. Normocephalic, atraumatic. No pharyngeal erythema. No thyromegaly. CARDIOVASCULAR: S1 and S2 present. No murmurs, rubs, or gallops. PULMONARY: Chest is clear to auscultation, no wheezing or crackles. ABDOMEN: Soft, nontender, nondistended, normoactive bowel sounds. No palpable organomegaly. MUSCULOSKELETAL: No joint swelling or deformity. EXTREMITIES: No cyanosis, clubbing, or pedal edema. NEUROLOGICAL: Gross neurological examination did not reveal any focal deficits. SKIN: No rashes. - Labs CBC & Chem 7: 12/22/21 04:34 12/22/21 04:34 Labs: Abnormal Lab Results - Last 24 Hours (Table) 12/21/21 12/21/21 12/22/21 Range/Units 12:45 17:29 04:34 RBC 4.12 L (4.30-5.90) m/uL Lymphocytes # 0.8 L (1.0-4.8) k/uL Sodium 127 L 128 L (137-145) mmol/L Chloride (98-107) mmol/L BUN (9-20) mg/dL Glucose (74-99) mg/dL POC Glucose (mg/dL) (75-99) mg/dL 12/22/21 12/22/21 12/22/21 Range/Units 04:34 06:15 11:51 RBC (4.30-5.90) m/uL Lymphocytes # (1.0-4.8) k/uL Sodium 127 L (137-145) mmol/L Chloride 93 L (98-107) mmol/L BUN 8 L (9-20) mg/dL Glucose 108 H (74-99) mg/dL POC Glucose (mg/dL) 125 H 146 H (75-99) mg/dL Assessment and Plan Assessment: 1. Acute COVID-[address] infection - [address] of the chest completed in ED reveals focal areas of pneumonitis along with scattered small nodule - Patient is saturating above 95% on room air - We will start patient on IV fluid hydration, vitamin C and vitamin D; consult pulmonary for further recommendations - Patient is not vaccinated against COVID-19 2. Hyponatremia; acute on chronic - Stat TSH and cortisol levels are obtained and are within normal limits - Likely hypovolemic; patient has been placed on IV fluids in form of normal saline; we will monitor sodium levels every 6 hours; consult nephrology for further recommendations 3. Diabetes mellitus type 2; patient takes glimepiride 4 mg twice a day, Tradjenta 5 mg daily with supper and metformin thousand milligrams twice a day along with Actos 30 mg daily 4. Hyperlipidemia; Lipitor 10 mg by mouth daily at bedtime 5. Seizure disorder; Mysoline 150 mg twice a day along with Neurontin 300 mg 3 times a day DVT prophylaxis; SCDs/subcu Lovenox CODE STATUS; full code
[2021-12-22] MEDS: ATORVASTATIN 10 MG TAB PO SCH (21:35)
[2021-12-23 02:04] LABS: Glucose,Whole Blood 66 mg/dL (75-99)
[2021-12-23 02:35] LABS: Glucose,Whole Blood 108 mg/dL (75-99)
[2021-12-23 06:46] LABS: Glucose,Whole Blood 206 mg/dL (75-99)
[2021-12-23] MEDS: INSULIN ASPART (NovoLOG) 100 UNIT/ML VIAL SQ SCH ×2 (07:12→11:40)
[2021-12-23] MEDS: ENOXAPARIN 40 MG/0.4 ML SYRINGE SQ SCH ×2 (07:13→07:24)
[2021-12-23] MEDS: GABAPENTIN 300 MG CAP PO SCH (07:13)
[2021-12-23] MEDS: CHOLECALCIFEROL 25 MCG (1000 IU) TABLET PO SCH (07:14)
[2021-12-23] MEDS: ASCORBIC ACID 500 MG TAB PO SCH (07:14)
[2021-12-23] MEDS: ASPIRIN 325 MG TAB PO SCH (07:14)
[2021-12-23] MEDS: PRIMIDONE 50 MG TAB PO SCH (07:14)
[2021-12-23] MEDS: SODIUM CHLORIDE 0.9% 1,000 ML IV SCH (07:15)
[2021-12-23] MEDS: GLIMEPIRIDE 4 MG TAB PO SCH (07:15)
--- NOTE | 2021-12-23 08:10 | P.PN ---
Subjective Progress Note Date: 12/23/21 Principal diagnosis: This is a 66-year-old male seen in consultation because of hyponatremia sodium was 123. This is deemed to be from SIADH. Workup has shown a normal TSH at 1.5 8 and cortisol level at 15. Urine osmolality is 258 and urine sodium is 90. Patient currently is on normal saline. Sodium improved from 123 09/18/2027 yesterday and this morning is 127 Came in because of COVID, With chills and dry cough. Some loose stools in small amounts. No nausea vomiting. No headache no dizziness. Chest x-ray showed pulmonary fibrotic changes with some progression compared to previous exam and a computed tomography scan of the chest showed emphysematous bullae. Patient is known with history of seizures and diabetes mellitus. Last seizure was 1986. His blood pressure remains somewhat high in the 140s to 150's, diastolic in the 70s to 90s. Intake and output not accurately documented He has no complaints this morning says he is feeling well appetite is back and no cough no shortness of breath no dizziness hasn't had a bowel movement today. Objective - Vital Signs Vital signs: Vital Signs Temp 98.0 F 12/23/21 06:00 Pulse 81 12/23/21 06:00 Resp 16 12/23/21 06:00 BP 158/96 12/23/21 06:00 Pulse Ox 99 12/23/21 06:00 Intake & Output 12/22/21 12/23/21 12/23/21 18:59 06:59 18:59 Other: Voiding Method Toilet Toilet Urinal Urinal # Voids 7 2 # Bowel Movements 2 Patient examined from the door because of his COVID Currently he is awake alert oriented comfortable Extremity exam was no edema - Labs CBC & Chem 7: 12/22/21 04:34 12/22/21 04:34 Labs: Abnormal Lab Results - Last 24 Hours (Table) 12/22/21 12/22/21 12/22/21 Range/Units 11:51 16:40 20:47 POC Glucose (mg/dL) 146 H 133 H 100 H (75-99) mg/dL 12/23/21 12/23/21 12/23/21 Range/Units 02:03 02:33 06:46 POC Glucose (mg/dL) 66 L 108 H 206 H (75-99) mg/dL Assessment and Plan Plan: Impression 1. 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 Last today are pending 2. Admitted with COVID pneumonia 3. History of emphysema and COPD 4. Diabetes mellitus 5. History of seizures Recommendation 1. Discontinue IV normal saline 2. Fluid restrict to 1000 mL oral 3. Vision could be discharged to be followed up with a repeat labs in 2 days' time. Prescription has been provided. 4. Maintain fluid restriction until labs are drawn in 2 days' time as an outpatient
[2021-12-23 10:47] VITALS: BP 169/84; PULSE 90; RESP 18; TEMP 98.1
[2021-12-23 11:35] LABS: Glucose,Whole Blood 140 mg/dL (75-99)
[2021-12-23] MEDS ORDERED: metFORMIN 500 MG TAB PO SCH (17:30)
== END 2021-12-23 13:32 | disposition home or self-care (01) | DRG 177 ==
LOC: EC 19:14 → 4SSUR 12-21 03:30
PROVIDERS: ADMIT Hospitalist; ATTEND Hospitalist
DX: U07.1 COVID-19 (principal); J12.82 Pneumonia due to coronavirus disease 2019; E22.2 Syndrome of inappropriate secretion of antidiuretic hormone; J43.9 Emphysema, unspecified; Z28.310 Unvaccinated for COVID-19; E11.42 Type 2 diabetes mellitus with diabetic polyneuropathy; E78.5 Hyperlipidemia, unspecified; E86.1 Hypovolemia; G40.909 Epilepsy, unspecified, not intractable, without status epilepticus; Z79.82 Long term (current) use of aspirin; Z79.84 Long term (current) use of oral hypoglycemic drugs; Z79.899 Other long term (current) drug therapy; Z82.49 Family history of ischemic heart disease and other diseases of the circulatory system; Z83.3 Family history of diabetes mellitus; Z86.73 Personal history of transient ischemic attack (TIA), and cerebral infarction without residual deficits
CPT/HCPCS: 36415; 71045; 71260; 80053; 81001; 82533; 83735; 83930; 83935; 84295; 84300; 84443; 85025; 87502; 87635; 99285

== ENCOUNTER 2021-12-27 11:46 | Emergency (ER) | payer MEDICARE, OTHER ==
[2021-12-27 13:17] VITALS: BP 152/85; PULSE 79; RESP 18; TEMP 98.2
--- NOTE | 2021-12-27 15:36 | ED ---
General Adult HPI - General Chief complaint: Recheck/Abnormal Lab/Rx Stated complaint: wants covid test Time Seen by Provider: 12/27/21 15:17 Source: patient Mode of arrival: ambulatory Limitations: no limitations - History of Present Illness Initial comments: This 66-year-old male presents emergency Department wanting a retest for COVID- 19. Patient states he was here on 12/21 and was diagnosed with COVID-19. He states he received COVID-19 antibody infusion at that time. Patient states his only symptom is a little bit of nasal congestion. Patient states he has been taking vitamin C and Mucinex and states this seems to help his symptoms significantly. Patient states he does have an at-home nurse that does come and see him. Patient states he is now currently taking the oral antiviral medication for COVID-19 that was prescribed by his primary care provider. Patient denies any chest pain, shortness of breath, abdominal pain, nausea, vomiting, fever, change in bowel or bladder, change in vision, lightheadedness, dizziness, headache, rash, change in vision - Related Data Home Medications Medication Instructions Recorded Confirmed Atorvastatin [Lipitor] 10 mg PO HS 12/16/14 12/21/21 Primidone 150 mg PO BID 12/16/14 12/21/21 sitaGLIPtin [Januvia] 100 mg PO W/SUPPER 12/16/14 12/21/21 Gabapentin 600 mg PO TID 09/17/16 12/21/21 metFORMIN HCL [Glucophage] 1,000 mg PO AC-BID 09/17/16 12/21/21 Pioglitazone [Actos] 30 mg PO W/SUPPER 02/13/20 12/21/21 Glimepiride [Amaryl] 4 mg PO AC-BID 03/13/20 12/21/21 Aspirin EC [Ecotrin] 325 mg PO DAILY 12/31/20 12/21/21 Ergocalciferol [Vitamin D2 (1250 1,250 mcg PO TU 12/21/21 12/21/21 Mcg = 00427 Iu)] lisinopriL [Zestril] 2.5 mg PO DAILY 12/21/21 12/21/21 Previous Rx's Medication Instructions Recorded Ascorbic Acid [Vitamin C] 500 mg PO DAILY #0 tab 12/23/21 Allergies Allergy/AdvReac Type Severity Reaction Status Date / Time No Known Allergies Allergy Verified 12/27/21 13:16 Review of Systems ROS Statement: Those systems with pertinent positive or pertinent negative responses have been documented in the HPI. ROS Other: All systems not noted in ROS Statement are negative. Past Medical History Past Medical History: CVA/TIA, GERD/Reflux, Hyperlipidemia, Neurologic Disorder, Seizure Disorder Additional Past Medical History / Comment(s): carpal tunnel neuropath History of Any Multi-Drug Resistant Organisms: None Reported Past Surgical History: Orthopedic Surgery Additional Past Surgical History / Comment(s): neuropathy, last seizure 1986, "born with convulsions", lymph nodes removed left cervical, left knee surgery Past Anesthesia/Blood Transfusion Reactions: No Reported Reaction Past Psychological History: No Psychological Hx Reported Smoking Status: Never smoker Past Alcohol Use History: None Reported Past Drug Use History: None Reported - Past Family History Mother History Unknown: Yes Family Medical History: Congestive Heart Failure (CHF) Father History Unknown: Yes Family Medical History: Diabetes Mellitus General Exam Limitations: no limitations General appearance: alert, in no apparent distress Head exam: Present: atraumatic, normocephalic, normal inspection Eye exam: Present: normal appearance, PERRL, EOMI. Absent: scleral icterus, conjunctival injection, periorbital swelling Pupils: Present: normal accommodation ENT exam: Present: normal exam, normal oropharynx, mucous membranes moist Neck exam: Present: normal inspection, full ROM. Absent: tenderness, meningismus, lymphadenopathy Respiratory exam: Present: normal lung sounds bilaterally. Absent: respiratory distress, wheezes, rales, rhonchi, stridor, chest wall tenderness Cardiovascular Exam: Present: regular rate, normal rhythm, normal heart sounds. Absent: systolic murmur, diastolic murmur, rubs, gallop, clicks GI/Abdominal exam: Present: soft, normal bowel sounds. Absent: distended, tenderness, guarding, rebound, rigid Extremities exam: Present: normal inspection, full ROM, normal capillary refill. Absent: tenderness, pedal edema, joint swelling, calf tenderness Back exam: Present: full ROM. Absent: CVA tenderness (R), CVA tenderness (L), paraspinal tenderness, vertebral tenderness Neurological exam: Present: alert, oriented X3, CN II-XII intact, normal gait Psychiatric exam: Present: normal affect, normal mood Skin exam: Present: warm, dry, intact, normal color. Absent: rash Course Vital Signs 12/27/21 13:11 Temperature 98.2 F Pulse Rate 79 Respiratory 18 Rate Blood Pressure 152/85 O2 Sat by Pulse 99 Oximetry Medical Decision Making - Medical Decision Making This 66-year-old male presents emergency department requesting retest for COVID- 19. Patient was COVID-19 positive. Patient has already quarantined for 5 days- I instructed him for the next 5 days he must wear a mask when he goes on public for his quarantine his over. Patient was not vaccinated for COVID-19. Patient is a 30 received COVID-19 antibody infusion. Patient is currently asymptomatic besides a little bit of nasal congestion. Patient instructed to follow up with his primary care provider in the next 1-2 days. Strict return precautions were discussed. Patient verbally agreed to plan. Patient sent home in stable condition. Case discussed in detail with my attending, . - Lab Data Lab Results 12/27/21 Range/Units 13:20 Coronavirus (PCR) Detected A (Not Detectd) Disposition Clinical Impression: COVID-19 Disposition: HOME SELF-CARE Condition: Stable Additional Instructions: Please follow-up with your primary care provider in the next 1-2 days. Return to the emergency department with any new, worsening, or concerning symptoms. Is patient prescribed a controlled substance at d/c from ED?: No Referrals: Jason Morse MD [Primary Care Provider] - 1-2 days Time of Disposition: 15:39
== END 2021-12-27 15:45 | disposition home or self-care (01) ==
LOC: EC 11:46
DX: U07.1 COVID-19 (principal); E78.5 Hyperlipidemia, unspecified; G40.909 Epilepsy, unspecified, not intractable, without status epilepticus; K21.9 Gastro-esophageal reflux disease without esophagitis; Z79.82 Long term (current) use of aspirin; Z79.84 Long term (current) use of oral hypoglycemic drugs; Z79.899 Other long term (current) drug therapy; Z86.73 Personal history of transient ischemic attack (TIA), and cerebral infarction without residual deficits
CPT/HCPCS: 87635; 99283

== ENCOUNTER 2021-12-28 10:52 | Emergency (ER) | payer MEDICARE, OTHER ==
[2021-12-28 11:42] VITALS: BP 133/84; PULSE 85; RESP 18; TEMP 97.5
--- NOTE | 2021-12-28 13:29 | ED ---
General Adult HPI - General Chief complaint: Recheck/Abnormal Lab/Rx Stated complaint: Tingling body,Covid Positive Time Seen by Provider: 12/28/21 13:15 Source: patient, RN notes reviewed, old records reviewed Mode of arrival: EMS Limitations: no limitations - History of Present Illness Initial comments: This is a 66-year-old male who presents emergency department stating that he had tingling all over his body and he had felt shaky inside. Patient states he was diagnosed with COVID last was given monoclonal antibodies. Patient states today he felt shaky all over he states he was born with tremors but this was worsened normal at was an external it felt internal. Patient also stated he felt tingly all over. Patient denies any loss of sensation or any focal weakness. Patient denies any chest pain difficulty breathing or shortness of breath. Patient denies headache. Patient denies any abdominal pain patient denies nausea vomiting diarrhea. Patient denies any headache. - Related Data Home Medications Medication Instructions Recorded Confirmed Atorvastatin [Lipitor] 10 mg PO HS 12/16/14 12/21/21 Primidone 150 mg PO BID 12/16/14 12/21/21 sitaGLIPtin [Januvia] 100 mg PO W/SUPPER 12/16/14 12/21/21 Gabapentin 600 mg PO TID 09/17/16 12/21/21 metFORMIN HCL [Glucophage] 1,000 mg PO AC-BID 09/17/16 12/21/21 Pioglitazone [Actos] 30 mg PO W/SUPPER 02/13/20 12/21/21 Glimepiride [Amaryl] 4 mg PO AC-BID 03/13/20 12/21/21 Aspirin EC [Ecotrin] 325 mg PO DAILY 12/31/20 12/21/21 Ergocalciferol [Vitamin D2 (1250 1,250 mcg PO TU 12/21/21 12/21/21 Mcg = 73100 Iu)] lisinopriL [Zestril] 2.5 mg PO DAILY 12/21/21 12/21/21 Previous Rx's Medication Instructions Recorded Ascorbic Acid [Vitamin C] 500 mg PO DAILY #0 tab 12/23/21 Allergies Allergy/AdvReac Type Severity Reaction Status Date / Time No Known Allergies Allergy Verified 12/28/21 11:41 Review of Systems ROS Statement: Those systems with pertinent positive or pertinent negative responses have been documented in the HPI. ROS Other: All systems not noted in ROS Statement are negative. Past Medical History Past Medical History: CVA/TIA, GERD/Reflux, Hyperlipidemia, Neurologic Disorder, Seizure Disorder Additional Past Medical History / Comment(s): carpal tunnel neuropath History of Any Multi-Drug Resistant Organisms: None Reported Past Surgical History: Orthopedic Surgery Additional Past Surgical History / Comment(s): neuropathy, last seizure 1986, "born with convulsions", lymph nodes removed left cervical, left knee surgery Past Anesthesia/Blood Transfusion Reactions: No Reported Reaction Past Psychological History: No Psychological Hx Reported Smoking Status: Never smoker Past Alcohol Use History: None Reported Past Drug Use History: None Reported - Past Family History Mother History Unknown: Yes Family Medical History: Congestive Heart Failure (CHF) Father History Unknown: Yes Family Medical History: Diabetes Mellitus General Exam - General Exam Comments Initial Comments: GENERAL: Patient is well-developed and well-nourished. Patient is nontoxic and well- hydrated and is in mild distress. ENT: Neck is soft and supple. No significant lymphadenopathy is noted. Oropharynx is clear. Moist mucous membranes. Neck has full range of motion without eliciting any pain. EYES: The sclera were anicteric and conjunctiva were pink and moist. Extraocular movements were intact and pupils were equal round and reactive to light. Eyelids were unremarkable. PULMONARY: Unlabored respirations. Good breath sounds bilaterally. No audible rales rhonchi or wheezing was noted. CARDIOVASCULAR: There is a regular rate and rhythm without any murmurs gallops or rubs. ABDOMEN: Soft and nontender with normal bowel sounds. SKIN: Skin is clear with no lesions or rashes and otherwise unremarkable. NEUROLOGIC: Patient is alert and oriented x3. Cranial nerves II through XII are grossly i ntact. Motor and sensory are also intact. Normal speech, volume and content. Symmetrical smile. MUSCULOSKELETAL: Normal extremities with adequate strength and full range of motion. No lower extremity swelling or edema. No calf tenderness. LYMPHATICS: No significant lymphadenopathy is noted PSYCHIATRIC: Normal psychiatric evaluation. Limitations: no limitations Course Vital Signs 12/28/21 11:37 Temperature 97.5 F L Pulse Rate 85 Respiratory 18 Rate Blood Pressure 133/84 O2 Sat by Pulse 97 Oximetry Medical Decision Making - Lab Data Result diagrams: 12/28/21 13:34 12/28/21 13:34 Lab Results 12/28/21 12/28/21 Range/Units 13:34 13:34 WBC 3.3 L (3.8-10.6) k/uL RBC 4.05 L (4.30-5.90) m/uL Hgb 13.3 (13.0-17.5) gm/dL Hct 38.7 L (39.0-53.0) % MCV 95.7 (80.0-100.0) fL MCH 32.8 (25.0-35.0) pg MCHC 34.3 (31.0-37.0) g/dL RDW 13.4 (11.5-15.5) % Plt Count 238 (150-450) k/uL MPV 6.6 Neutrophils % 53 % Lymphocytes % 33 % Monocytes % 11 % Eosinophils % 0 % Basophils % 0 % Neutrophils # 1.8 (1.3-7.7) k/uL Lymphocytes # 1.1 (1.0-4.8) k/uL Monocytes # 0.4 (0-1.0) k/uL Eosinophils # 0.0 (0-0.7) k/uL Basophils # 0.0 (0-0.2) k/uL Sodium 131 L (137-145) mmol/L Potassium 3.9 (3.5-5.1) mmol/L Chloride 97 L (98-107) mmol/L Carbon Dioxide 25 (22-30) mmol/L Anion Gap 9 mmol/L BUN 9 (9-20) mg/dL Creatinine 0.60 L (0.66-1.25) mg/dL Est GFR (CKD-EPI)AfAm >90 (>60 ml/min/1.73 sqM) Est GFR (CKD-EPI)NonAf >90 (>60 ml/min/1.73 sqM) Glucose 190 H (74-99) mg/dL Calcium 8.7 (8.4-10.2) mg/dL Total Bilirubin 0.4 (0.2-1.3) mg/dL AST 35 (17-59) U/L ALT 36 (4-49) U/L Alkaline Phosphatase 85 (38-126) U/L Total Protein 7.3 (6.3-8.2) g/dL Albumin 4.0 (3.5-5.0) g/dL Disposition Clinical Impression: Paresthesias Disposition: HOME SELF-CARE Condition: Good Instructions (If sedation given, give patient instructions): Paresthesia (ED) Is patient prescribed a controlled substance at d/c from ED?: No Referrals: Jason Morse MD [Primary Care Provider] - 1-2 days Time of Disposition: 15:03
[2021-12-28 14:18] LABS: Total Bilirubin 0.4 mg/dL (0.2-1.3)
[2021-12-28 14:26] LABS: Basophils % (A) 0 %; Eosinophils % (A) 0 %; HCT 38.7 % (39.0-53.0); HGB 13.3 gm/dL (13.0-17.5); Lymphocytes # (A) 1.1 k/uL (1.0-4.8); Lymphocytes % (A) 33 %; MCH 32.8 pg (25.0-35.0); MCHC 34.3 g/dL (31.0-37.0); MCV 95.7 fL (80.0-100.0); Mean Platelet Volume 6.6; Monocytes # (A) 0.4 k/uL (0-1.0); Monocytes % (A) 11 %; Neutrophils # (A) 1.8 k/uL (1.3-7.7); Neutrophils % (A) 53 %; Platelet Count 238 k/uL (150-450); RBC 4.05 m/uL (4.30-5.90); RDW 13.4 % (11.5-15.5); WBC 3.3 k/uL (3.8-10.6)
[2021-12-28 14:58] LABS: ALT 36 U/L (4-49); AST 35 U/L (17-59); African American GFR (CKD) >90 (>60 ml/min/1.73 sqM); Alkaline Phosphatase 85 U/L (38-126); Anion Gap 9 mmol/L; Blood Urea Nitrogen 9 mg/dL (9-20); Calcium 8.7 mg/dL (8.4-10.2); Carbon Dioxide 25 mmol/L (22-30); Chloride 97 mmol/L (98-107); Glucose 190 mg/dL (74-99); Non-African American GFR(CKD) >90 (>60 ml/min/1.73 sqM); Potassium 3.9 mmol/L (3.5-5.1); Sodium 131 mmol/L (137-145); Total Protein 7.3 g/dL (6.3-8.2)
== END 2021-12-28 15:34 | disposition home or self-care (01) ==
LOC: EC 10:52
DX: R20.2 Paresthesia of skin (principal); U07.1 COVID-19; E78.5 Hyperlipidemia, unspecified; Z79.899 Other long term (current) drug therapy; Z79.82 Long term (current) use of aspirin; Z86.73 Personal history of transient ischemic attack (TIA), and cerebral infarction without residual deficits
CPT/HCPCS: 36415; 80053; 85025; 99284

== ENCOUNTER → 2022-05-22 | Outpatient (CLI) | payer MEDICARE, OTHER ==
[2022-05-22 11:10] LABS: Creatinine,Urine Random 192.4 mg/dL; Protein/Creatinine Ratio,Urine 0.593
[2022-05-22 15:54] LABS: African American GFR (CKD) 106.2 (60.0-200.0); BUN/Creat Ratio 12.24 Ratio (12.00-20.00); Calcium 9.4 mg/dL (8.7-10.3); Carbon Dioxide 28.6 mmol/L (20.0-27.5); Chloride 96 mmol/L (96-109); Chol/HDL Ratio 3.48 Ratio; Glucose 174 mg/dL (70-110); LDL Cholesterol,Calculated 93.4 mg/dL (0.0-131.0); Magnesium 1.7 mg/dL (1.5-2.4); Non-African American GFR(CKD) 91.6 (60.0-200.0); Phosphorus 3.4 mg/dL (2.4-5.1); Potassium 4.2 mmol/L (3.5-5.5); Sodium 134 mmol/L (135-145)
[2022-05-22 22:15] LABS: Appearance,Urine Clear (Clear); Bilirubin,Urine Negative (Negative); Blood,Urine Negative (Negative); Color,Urine Dark Yellow (Yellow); Ketones,Urine Trace mg/dL (Negative); Nitrite,Urine Negative (Negative); Specific Gravity,Urine 1.026 (1.001-1.030)
[2022-05-22 22:53] LABS: Bacteria,Urine None Seen /HPF (None Seen); Calcium Oxalate Crystals,Urine Present /LPF (None Seen)
== END | disposition home or self-care (01) ==
LOC: LABWHC1 09:27
PROVIDERS: ATTEND Nurse Practitioner Acute Care
DX: I10 Essential (primary) hypertension (principal); E87.1 Hypo-osmolality and hyponatremia; N39.0 Urinary tract infection, site not specified
CPT/HCPCS: 36415; 80048; 80061; 81001; 82043; 82570; 83735; 83930; 83935; 84100; 84156; 84300

== ENCOUNTER → 2022-09-13 | Outpatient (CLI) | payer MEDICARE, OTHER ==
--- NOTE | 2022-09-14 15:46 | MR ---
EXAMINATION TYPE: MR brain wo/w con DATE OF EXAM: 09/13/2022 7:06 PM CLINICAL INDICATION:Male, 67 years old with history of R42 DIZZINESS, R51.9 HEADACHE; Hx of Headache and dizziness experienced after the pt felt a left sided shot of pain in his head/ Hx of Seizures COMPARISON: Same day anterior head. CT brain same back to 03/10/2012 TECHNIQUE: Multi planar, multi sequence imaging was performed through the brain including: T1, T2, In version recovery, susceptibility weighted imaging and gradient echo imaging and Diffusion weighted im aging. The patient was then given intravenous contrast and multi planar, T1 fat-saturation images wer e obtained. IV Contrast: 7ml cc Gadavist FINDINGS: Remote encephalomalacic changes to the bilateral occipital parietal regions. Unchanged back to at [facility] 03/10/2012. The ventricular system, basal cisterns appear unremarkable. Diffusion-weighted imaging shows no evidence of restricted diffusion to suggest acute/subacute infarct. Intracranial arterial fl ow voids are maintained. Midline structures show no abnormality. Scattered foci of high T2 signal int ensity are seen within the periventricular white matter. The susceptibility weighted images do not re veal any evidence for micro-hemorrhage. After administration of gadolinium, no abnormal enhancement i s seen. The bone marrow signal is within normal limits. Paranasal sinuses and mastoid air cells: Mild scattered paranasal sinus disease. Visualized orbits: Orbital contents are intact. IMPRESSION: 1. No evidence of intracranial mass, acute/subacute infarct, or abnormal enhancement. 2. Nonspecific white matter changes, likely related to small vessel ischemic disease 3. Similar atrophy changes to the bilateral parieto-occipital regions dating back to at least 2011.
--- NOTE | 2022-09-14 15:47 | MR ---
EXAMINATION TYPE: MR angio head wo con DATE OF EXAM: 09/13/2022 7:06 PM CLINICAL INDICATION:Male, 67 years old with history of R42 DIZZINESS, R51.9 HEADACHE; Hx of Headache and dizziness experienced after the pt felt a left sided shot of pain in his head/ Hx of Seizures COMPARISON: MRI brain same day appears air cells Technical: 3-D [id number] Axial with MIP reconstruction created on a separate workstation.. IV Contrast: None Findings: Vertebral arteries: The vertebral arteries are patent. The right vertebral artery is dominant. Basilar artery: The basilar artery is intact. The basilar artery bifurcation is normal. Internal Carotid arteries: The cervical, petrous, cavernous and supraclinoid segments are normal. RYLIE: Patent with no evidence of aneurysm. ACOM: Present without evidence of aneurysm. MCA: Patent with no evidence of aneurysm. REGIONAL SALES MANAGER: Patent with no evidence of aneurysm. PCOM: Hypoplastic bilaterally. IMPRESSION: No evidence of aneurysm or significant stenosis.
== END | disposition home or self-care (01) ==
LOC: RADMRIMAIN 17:42
PROVIDERS: ATTEND Internal Medicine
DX: R90.82 White matter disease, unspecified (principal); G31.9 Degenerative disease of nervous system, unspecified; R42 Dizziness and giddiness; R51.9 Headache, unspecified
CPT/HCPCS: 70544; 70553; A9585

== ENCOUNTER 2022-09-14 11:37 | Emergency (ER) | payer MEDICARE, OTHER ==
[2022-09-14] MEDS ORDERED: KETOROLAC 15 MG/ML 1 ML VIAL IVP STA (13:08)
[2022-09-14 13:30] VITALS: RESP 18
[2022-09-14 13:30] LABS: Basophils % (A) 0 %; Eosinophils % (A) 1 %; HCT 35.8 % (39.0-53.0); HGB 12.4 gm/dL (13.0-17.5); Lymphocytes # (A) 1.4 k/uL (1.0-4.8); Lymphocytes % (A) 21 %; MCH 32.8 pg (25.0-35.0); MCHC 34.8 g/dL (31.0-37.0); MCV 94.2 fL (80.0-100.0); Mean Platelet Volume 6.9; Monocytes # (A) 0.4 k/uL (0-1.0); Monocytes % (A) 6 %; Neutrophils # (A) 4.9 k/uL (1.3-7.7); Neutrophils % (A) 71 %; Platelet Count 282 k/uL (150-450); RDW 12.5 % (11.5-15.5); WBC 6.9 k/uL (3.8-10.6)
[2022-09-14 13:39] LABS: ALT 16 U/L (4-49); AST 18 U/L (17-59); African American GFR (CKD) >90 (>60 ml/min/1.73 sqM); Albumin 4.2 g/dL (3.5-5.0); Alkaline Phosphatase 100 U/L (38-126); Anion Gap 7 mmol/L; Blood Urea Nitrogen 9 mg/dL (9-20); C Reactive Protein <0.5 mg/dL (<1.0); Carbon Dioxide 29 mmol/L (22-30); Chloride 96 mmol/L (98-107); Creatine Kinase 70 U/L (55-170); Glucose 255 mg/dL (74-99); Magnesium 1.5 mg/dL (1.6-2.3); Non-African American GFR(CKD) >90 (>60 ml/min/1.73 sqM); Potassium 4.2 mmol/L (3.5-5.1); Sodium 132 mmol/L (137-145); Total Bilirubin 0.3 mg/dL (0.2-1.3); Total Protein 7.3 g/dL (6.3-8.2)
--- NOTE | 2022-09-14 14:02 | ED ---
Headache HPI - General Chief Complaint: Headache Stated Complaint: head pain Time Seen by Provider: 09/14/22 12:25 Source: patient, RN notes reviewed Mode of arrival: ambulatory Limitations: no limitations - History of Present Illness Initial Comments: 67-year-old male who presents with complaints of a left-sided headache. He states originally started 2 days before this past [place] he states he was doing some left-sided was had with pain in the left neck. No loss of consciousness no blurry vision no loss of function is upper or lower extremitie s. He has since seen his doctor had an evaluation done also MRI haven't brain done yesterday was pending results. No fevers chills nausea vomiting sweats he states he took some Aleve this morning was dizziness seem to help with the patient states his headache has returned is moderate in severity sharp. He states he woke up this morning with left-sided posterior pain yesterday of some lightheadedness and dizziness with it. Pain now he states his better mild in severity MD Complaint: headache - Related Data Home Medications Medication Instructions Recorded Confirmed Primidone 200 mg PO BID 12/16/14 09/14/22 sitaGLIPtin [Januvia] 100 mg PO DAILY 12/16/14 09/14/22 Gabapentin 600 mg PO TID 09/17/16 09/14/22 metFORMIN HCL [Glucophage] 1,000 mg PO BID-W/MEALS 09/17/16 09/14/22 Pioglitazone [Actos] 30 mg PO DAILY 02/13/20 09/14/22 Glimepiride [Amaryl] 4 mg PO DAILY 03/13/20 09/14/22 Aspirin EC [Ecotrin] 325 mg PO DAILY 12/31/20 09/14/22 Ergocalciferol [Vitamin D2 (1250 1,250 mcg PO Q7DAYS 12/21/21 09/14/22 Mcg = 75750 Iu)] Rosuvastatin Calcium 5 mg PO DAILY 09/14/22 09/14/22 Valsartan 80 mg PO DAILY 09/14/22 09/14/22 carvediloL [Coreg] 3.125 mg PO BID-W/MEALS 09/14/22 09/14/22 Previous Rx's Medication Instructions Recorded Orphenadrine [Norflex] 100 mg PO Q12H #7 tab 01/28/23 predniSONE [Deltasone] 20 mg PO BID #10 tab 09/14/22 Allergies Allergy/AdvReac Type Severity Reaction Status Date / Time No Known Allergies Allergy Verified 09/14/22 11:44 Review of Systems ROS Statement: Those systems with pertinent positive or pertinent negative responses have been documented in the HPI. ROS Other: All systems not noted in ROS Statement are negative. Past Medical History Past Medical History: CVA/TIA, GERD/Reflux, Hyperlipidemia, Hypertension, Neurologic Disorder, Seizure Disorder Additional Past Medical History / Comment(s): carpal tunnel neuropath History of Any Multi-Drug Resistant Organisms: None Reported Past Surgical History: Orthopedic Surgery Additional Past Surgical History / Comment(s): neuropathy, last seizure 1986, "born with convulsions", lymph nodes removed left cervical, left knee surgery Past Anesthesia/Blood Transfusion Reactions: No Reported Reaction Past Psychological History: No Psychological Hx Reported Smoking Status: Never smoker Past Alcohol Use History: None Reported Past Drug Use History: None Reported - Past Family History Mother History Unknown: Yes Family Medical History: Congestive Heart Failure (CHF) Father History Unknown: Yes Family Medical History: Diabetes Mellitus General Exam - General Exam Comments Initial Comments: This is a well-developed well-nourished awake alert oriented 4 male Limitations: no limitations General appearance: alert, in no apparent distress Head exam: Present: atraumatic, normocephalic, normal inspection, other (Mild tenderness over the left mastoid region scalp which extends down to the lateral posterior neck musculature no midline spine tenderness ) Eye exam: Present: normal appearance, PERRL, EOMI. Absent: scleral icterus, conjunctival injection, periorbital swelling ENT exam: Present: mucous membranes dry Neck exam: Present: normal inspection, full ROM. Absent: tenderness, meningismus, lymphadenopathy Respiratory exam: Present: normal lung sounds bilaterally. Absent: respiratory distress, wheezes, rales, rhonchi, stridor Cardiovascular Exam: Present: regular rate, normal rhythm, normal heart sounds. Absent: systolic murmur, diastolic murmur, rubs, gallop, clicks GI/Abdominal exam: Present: soft, normal bowel sounds. Absent: distended, tenderness, guarding, rebound, rigid Extremities exam: Present: normal inspection, full ROM, normal capillary refill. Absent: tenderness, pedal edema, joint swelling, calf tenderness Back exam: Present: normal inspection Neurological exam: Present: alert, oriented X3, CN II-XII intact Psychiatric exam: Present: normal affect, normal mood Skin exam: Present: warm, dry, intact, normal color. Absent: rash Course Vital Signs 09/14/22 09/14/22 09/14/22 11:42 13:25 14:44 Temperature 98.6 F Pulse Rate 80 62 62 Respiratory 20 18 18 Rate Blood Pressure 193/105 143/100 148/91 O2 Sat by Pulse 99 97 96 Oximetry 09/14/22 15:58 Temperature Pulse Rate 60 Respiratory 18 Rate Blood Pressure 157/86 O2 Sat by Pulse 96 Oximetry Medical Decision Making - Medical Decision Making Patient will be discharge as stated above. Patient we placed on a short course of steroids and muscle relaxers we did discuss these options he will continue with the Aleve that he has only if he needs to also. He will follow-up with Dr. Daniels. Was pt. sent in by a medical professional or institution (, PA, ELECTRIC MOTOR REPAIR SUPERVISOR, urgent care, hospital, or longterm...) When possible be specific @ -[No] Did you speak to anyone other than the patient for history (EMS, parent, family, police, friend...)? What history was obtained from this source @ -[No] Did you review nursing and triage notes (agree or disagree)? Why? @ -[I reviewed and agree with nursing and triage notes] Were old charts reviewed (outside hosp., previous admission, EMS record, old EKG, old radiological studies, urgent care reports/EKG's, longterm records)? Report findings @ -[S old charts were reviewed] Differential Diagnosis (chest pain, altered mental status, abdominal pain women, abdominal pain men, vaginal bleeding, weakness, fever, dyspnea, syncope, headache, dizziness, GI bleed, back pain, seizure, CVA, palpatations, mental health)? @ -[Cephalgia, dehydration] EKG interpreted by me (3pts min.). @ -[As above] X-rays interpreted by me (1pt min.). @ -[Yes as above] CT interpreted by me (1pt min.). @ -[None done] U/S interpreted by me (1pt. min.). @ -[None done] What testing was considered but not performed or refused? (CT, X-rays, U/S, labs)? Why? @ -[None] What meds were considered but not given or refused? Why? @ -[None] Did you discuss the management of the patient with other professionals (professionals i.e. , PA, ELECTRIC MOTOR REPAIR SUPERVISOR, lab, RT, psych nurse, 7th grade social studies teacher, director day care center, teacher, motor equipment commanding officer, case manager specialist)? Give summary @ -[Yes Dr. Bourgeois] Was smoking cessation discussed for >3mins.? @ -[No] Was critical care preformed (if so, how long)? @ -[No] Were there social determinants of health that impacted care today? How? (Homelessness, low income, unemployed, alcoholism, drug addiction, transportation, low edu. Level, literacy, decrease access to med. care, nursing home, rehab)? @ -[No] Was there de-escalation of care discussed even if they declined (Discuss DNR or withdrawal of care, Hospice)? DNR status @ -[No] What co-morbidities impacted this encounter? (DM, HTN, Smoking, COPD, CAD, Cancer, CVA, ARF, Chemo, Hep., AIDS, mental health diagnosis, sleep apnea, morbid obesity)? @ -[None] Was patient admitted / discharged? Hospital course, mention meds given and route, prescriptions, significant lab abnormalities, going to OR and other pertinent info. @ -[hospital course] discharged Undiagnosed new problem with uncertain prognosis? @ -[No] Drug Therapy requiring intensive monitoring for toxicity (Heparin, Nitro, Insulin, Cardizem)? @ -[No] Were any procedures done? @ -[No] Diagnosis/symptom? @ -[default] Acute, or Chronic, or Acute on Chronic? @ -[Chronic] Uncomplicated (without systemic symptoms) or Complicated (systemic symptoms)? @ -[default] Side effects of treatment? @ -[No] Exacerbation, Progression, or Severe Exacerbation? @ -[Exacerbation] Poses a threat to life or bodily function? How? (Chest pain, [place], [place], pneumonia, PE, COPD, DKA, ARF, appy, cholecystitis, CVA, Diverticulitis, Homicidal, Suicidal, threat to staff... and all critical care pts) @ -[No] - Lab Data Result diagrams: 09/14/22 13:14 09/14/22 13:14 Lab Results 09/14/22 09/14/22 09/14/22 Range/Units 13:14 13:14 13:14 WBC 6.9 (3.8-10.6) k/uL RBC 3.80 L (4.30-5.90) m/uL Hgb 12.4 L (13.0-17.5) gm/dL Hct 35.8 L (39.0-53.0) % MCV 94.2 (80.0-100.0) fL MCH 32.8 (25.0-35.0) pg MCHC 34.8 (31.0-37.0) g/dL RDW 12.5 (11.5-15.5) % Plt Count 282 (150-450) k/uL MPV 6.9 Neutrophils % 71 % Lymphocytes % 21 % Monocytes % 6 % Eosinophils % 1 % Basophils % 0 % Neutrophils # 4.9 (1.3-7.7) k/uL Lymphocytes # 1.4 (1.0-4.8) k/uL Monocytes # 0.4 (0-1.0) k/uL Eosinophils # 0.0 (0-0.7) k/uL Basophils # 0.0 (0-0.2) k/uL Sodium 132 L (137-145) mmol/L Potassium 4.2 (3.5-5.1) mmol/L Chloride 96 L (98-107) mmol/L Carbon Dioxide 29 (22-30) mmol/L Anion Gap 7 mmol/L BUN 9 (9-20) mg/dL Creatinine 0.54 L (0.66-1.25) mg/dL Est GFR (CKD-EPI)AfAm >90 (>60 ml/min/1.73 sqM) Est GFR (CKD-EPI)NonAf >90 (>60 ml/min/1.73 sqM) Glucose 255 H (74-99) mg/dL Calcium 9.0 (8.4-10.2) mg/dL Magnesium 1.5 L (1.6-2.3) mg/dL Total Bilirubin 0.3 (0.2-1.3) mg/dL AST 18 (17-59) U/L ALT 16 (4-49) U/L Alkaline Phosphatase 100 (38-126) U/L Creatine Kinase 70 (55-170) U/L Troponin I <0.012 (0.000-0.034) ng/mL C-Reactive Protein <0.5 (<1.0) mg/dL Total Protein 7.3 (6.3-8.2) g/dL Albumin 4.2 (3.5-5.0) g/dL TSH 1.750 (0.465-4.680) mIU/L - EKG Data -: EKG Interpreted by Me Rate: normal EKG Comments: EKG interpreted by me EKG shows sinus rhythm a 65. Interval 167 QRS duration 86 QT since QTC 387/[address]-T wave changes - Radiology Data Interpreted by me: Imaging interpreted by me no acute findings. MRI was interpreted by me showing no evidence of acute processes. I also did review the radiology report. I did discuss case with patient family also with Dr. Bourgeois. Patient will be discharged follow-up in the office. The presentation appears be consistent with a musculoskeletal etiology of the pain also he did demonstrate hypomagnesemia. Disposition Clinical Impression: Cephalgia, Hypomagnesemia, Myofascial pain Disposition: HOME SELF-CARE Condition: Good Instructions (If sedation given, give patient instructions): Acute Headache (ED), Musculoskeletal Pain (ED), Hypomagnesemia (ED) Additional Instructions: Increase oral fluids, take the magnesium that he have at home Prescriptions: predniSONE [Deltasone] 20 mg PO BID #10 tab Orphenadrine [Norflex] 100 mg PO Q12H #7 tab Is patient prescribed a controlled substance at d/c from ED?: No Referrals: Serafin Bourgeois MD [Primary Care Provider] - 1-2 days Decision Date: 09/14/22 Decision Time: 16:56
--- NOTE | 2022-09-14 14:06 | XR ---
EXAMINATION TYPE: XR chest 2V DATE OF EXAM: 09/14/2022 1:58 PM COMPARISON: Chest radiographs from 12/21/2021 TECHNIQUE: XR chest 2V Frontal and lateral views of the chest. CLINICAL INDICATION:Male, 67 years old with history of Headache; FINDINGS: Lungs/Pleura: There is no evidence of pleural effusion, focal consolidation, or pneumothorax. Pulmonary vascularity: Unremarkable. Heart/mediastinum: Cardiomediastinal silhouette is unremarkable. Musculoskeletal: No acute osseous pathology. IMPRESSION: No acute cardiopulmonary disease/process.
[2022-09-14] MEDS ORDERED: MAGNESIUM SULFATE-D5W PMX 1 GM in DEXTROSE/WATER 1 100ML.BAG IVPB ONE (14:55)
[2022-09-14] MEDS ORDERED: predniSONE 50 MG TAB PO STA (16:44)
[2022-09-14 17:01] VITALS: BP 157/91; PULSE 62; TEMP 98.1
== END 2022-09-14 17:05 | disposition home or self-care (01) ==
LOC: EC 11:37
DX: R51.9 Headache, unspecified (principal); M79.18 Myalgia, other site; E83.42 Hypomagnesemia; E78.5 Hyperlipidemia, unspecified; I10 Essential (primary) hypertension; K21.9 Gastro-esophageal reflux disease without esophagitis; Z79.52 Long term (current) use of systemic steroids; Z79.82 Long term (current) use of aspirin; Z79.84 Long term (current) use of oral hypoglycemic drugs; Z79.899 Other long term (current) drug therapy
CPT/HCPCS: 36415; 93005; 80053; 84443; 82550; 83735; 84484; 85025; 86140; 71046; 99284; 96365; 96375; J3475; J1885; J7512

== ENCOUNTER → 2022-11-29 | Outpatient (CLI) | payer MEDICARE, OTHER ==
[2022-11-29 13:14] LABS: Creatinine,Urine Random 29.2 mg/dL; Protein/Creatinine Ratio,Urine 3.836
[2022-11-29 16:02] LABS: African American GFR (CKD) 108.1 (60.0-200.0); BUN/Creat Ratio 10.31 Ratio (12.00-20.00); Blood Urea Nitrogen 8.1 mg/dL (9.0-27.0); Calcium 9.4 mg/dL (8.7-10.3); Carbon Dioxide 25.1 mmol/L (20.0-27.5); Chloride 92 mmol/L (96-109); Chol/HDL Ratio 3.55 Ratio; Glucose 335 mg/dL (70-110); LDL Cholesterol,Calculated 93.3 mg/dL (0.0-131.0); Magnesium 1.7 mg/dL (1.5-2.4); Non-African American GFR(CKD) 93.3 (60.0-200.0); Phosphorus 2.7 mg/dL (2.4-5.1); Potassium 4.6 mmol/L (3.5-5.5); Sodium 131 mmol/L (135-145); VLDL Calculation 19.52 mg/dL (5.00-40.00)
[2022-11-29 21:10] LABS: Appearance,Urine Clear (Clear); Bilirubin,Urine Negative (Negative); Blood,Urine Trace (Negative); Color,Urine Yellow (Yellow); Ketones,Urine 15 mg/dL (Negative); Nitrite,Urine Negative (Negative); Specific Gravity,Urine 1.023 (1.001-1.030); Urobilinogen,Urine 0.2 (0.2,1.0)
[2022-11-29 21:17] LABS: Bacteria,Urine None Seen /HPF (None Seen)
[2022-11-29 22:00] LABS: Urine Creatinine 32.9 mg/dL (39.0-259.0)
== END | disposition home or self-care (01) ==
LOC: LABWHC1 09:39
PROVIDERS: ATTEND Nurse Practitioner Acute Care
DX: E87.1 Hypo-osmolality and hyponatremia (principal); N39.0 Urinary tract infection, site not specified; I10 Essential (primary) hypertension; R80.9 Proteinuria, unspecified
CPT/HCPCS: 36415; 80048; 80061; 81001; 82043; 82570; 83735; 83930; 83935; 84100; 84156; 84300

== ENCOUNTER → 2023-03-04 | Outpatient (CLI) | payer MEDICARE, OTHER ==
[2023-03-04 11:46] LABS: Creatinine,Urine Random 36.5 mg/dL; Protein/Creatinine Ratio,Urine 2.247
[2023-03-04 15:21] LABS: Appearance,Urine Clear (Clear); Bilirubin,Urine Negative (Negative); Blood,Urine Negative (Negative); Color,Urine Yellow (Yellow); Ketones,Urine Negative (Negative); Nitrite,Urine Negative (Negative); PH, Urine 6.5; Specific Gravity,Urine 1.025 (1.001-1.030); Urobilinogen,Urine 0.2 E.U./DL
[2023-03-04 15:27] LABS: Bacteria,Urine None Seen (None Seen)
[2023-03-04 15:39] LABS: Chol/HDL Ratio 3.58 Ratio; LDL Cholesterol,Calculated 91.1 mg/dL (0.0-131.0); Magnesium 1.8 mg/dL (1.5-2.4); Phosphorus 3.4 mg/dL (2.4-5.1); VLDL Calculation 18.48 mg/dL (5.00-40.00)
[2023-03-04 15:48] LABS: BUN/Creat Ratio 14.25 Ratio (12.00-20.00); Blood Urea Nitrogen 11.4 mg/dL (9.0-27.0); Calcium 9.2 mg/dL (8.7-10.3); Carbon Dioxide 27.1 mmol/L (21.6-31.8); Chloride 91 mmol/L (96-109); Glucose 339 mg/dL (70-110); Sodium 131 mmol/L (135-145)
[2023-03-04 21:07] LABS: Microalbumin Creatinine Ratio 768 mg/g Cr (0-30); Urine Creatinine 39.3 mg/dL (39.0-259.0)
[2023-03-05 12:04] LABS: Free Kappa Lt Chain Qnt, Serum 3.66 mg/dL (0.33-1.94); Free Lambda Lt Chain Qnt, Seru 2.17 mg/dL (0.57-2.63)
[2023-03-05 13:10] LABS: C-ANCA <1:20 Titer (<1:20)
[2023-03-05 14:18] LABS: Anti-Glomerular Basement Memb <1.5 U/mL (<7.0)
== END | disposition home or self-care (01) ==
LOC: LABWHC1 08:42
PROVIDERS: ATTEND Nurse Practitioner Acute Care
DX: I10 Essential (primary) hypertension (principal); E87.1 Hypo-osmolality and hyponatremia; N39.0 Urinary tract infection, site not specified; R80.9 Proteinuria, unspecified
CPT/HCPCS: 36415; 80048; 80061; 80074; 81001; 82043; 82570; 83516; 83735; 83883; 83930; 83935; 84100; 84156; 84300; 86038; 86160; 86162; 86225; 86255; 86334

== ENCOUNTER → 2023-09-08 | Outpatient (CLI) | payer MEDICARE, OTHER ==
[2023-09-08 09:42] LABS: Protein/Creatinine Ratio,Urine 1.84
[2023-09-08 15:03] LABS: Basophils # (A) 0.04 X 10*3/uL (0.00-0.10); Basophils % (A) 0.5 %; Eosinophils # (A) 0.17 X 10*3/uL (0.04-0.35); Eosinophils % (A) 2.1 %; HCT 40.1 % (39.6-50.0); HGB 13.9 g/dL (13.0-17.0); Lymphocytes # (A) 2.44 X 10*3/uL (0.90-5.00); Lymphocytes % (A) 30.3 %; MCH 34.2 pg (27.0-32.0); MCHC 34.7 g/dL (32.0-37.0); MCV 98.5 FL (80.0-97.0); Mean Platelet Volume 8.3 FL (9.5-12.2); Monocytes # (A) 0.65 X 10*3/uL (0.20-1.00); Monocytes % (A) 8.1 %; NRBC Per 100 WBC 0 X 10*3/uL (0.00-0.01); Neutrophils # (A) 4.74 X 10*3/uL (1.80-7.70); Neutrophils % (A) 58.8 %; Platelet Count 265 X 10*3/uL (140-440); RBC 4.07 X 10*6/uL (4.40-5.60); RDW 12.3 % (11.5-14.5); WBC 8.06 X 10*3/uL (4.50-10.00)
[2023-09-08 15:14] LABS: Chol/HDL Ratio 2.37 Ratio; Magnesium 2.1 mg/dL (1.5-2.4); Phosphorus 3.3 mg/dL (2.4-5.1)
[2023-09-08 15:15] LABS: ALT 22 U/L (10-49); AST 23 U/L (14-35); Albumin 4.2 g/dL (3.8-4.9); Alkaline Phosphatase 101 U/L (41-126); BUN/Creat Ratio 14.71 Ratio (12.00-20.00); Blood Urea Nitrogen 10.3 mg/dL (9.0-27.0); Calcium 9.1 mg/dL (8.7-10.3); Carbon Dioxide 27.8 mmol/L (21.6-31.8); Chloride 92 mmol/L (96-109); Globulin 2.8 g/dL (1.6-3.3); Glucose 78 mg/dL (70-110); LDL Cholesterol,Calculated 78.3 mg/dL (0.0-131.0); Potassium 4.7 mmol/L (3.5-5.5); Prostate Specific Antigen 0.16 ng/mL (0.000-4.500); Sodium 130 mmol/L (135-145); Total Bilirubin <0.2 mg/dL (0.3-1.2); VLDL Calculation 6.76 mg/dL (5.00-40.00)
[2023-09-08 17:02] LABS: Appearance,Urine Clear (Clear); Bilirubin,Urine Negative (Negative); Blood,Urine Negative (Negative); Color,Urine Yellow (Yellow); Ketones,Urine Negative (Negative); Nitrite,Urine Negative (Negative); Specific Gravity,Urine 1.008 (1.001-1.030); Urobilinogen,Urine 0.2 E.U./DL
[2023-09-08 20:58] LABS: Urine Creatinine 26.2 mg/dL (39.0-259.0)
== END | disposition home or self-care (01) ==
LOC: LABWHC1 08:07
PROVIDERS: ATTEND Internal Medicine
DX: Z12.5 Encounter for screening for malignant neoplasm of prostate (principal); I10 Essential (primary) hypertension; E87.1 Hypo-osmolality and hyponatremia; E78.2 Mixed hyperlipidemia; E11.65 Type 2 diabetes mellitus with hyperglycemia; N39.0 Urinary tract infection, site not specified; R80.9 Proteinuria, unspecified; R53.83 Other fatigue; Z79.4 Long term (current) use of insulin
CPT/HCPCS: 36415; 80053; 80061; 81003; 82043; 82570; 83036; 83735; 83930; 83935; 84100; 84153; 84156; 84300; 84443; 85025

== ENCOUNTER 2023-10-24 18:16 | Emergency (ER) | payer MEDICARE, OTHER ==
--- NOTE | 2023-10-24 18:38 | ED ---
General Adult HPI - General Chief complaint: Skin/Abscess/Foreign Body Stated complaint: object in left arm/needle in arm Time Seen by Provider: 10/24/23 18:29 Source: patient Mode of arrival: ambulatory Limitations: no limitations - History of Present Illness Initial comments: Dictation was produced using [employer] dictation software. please excuse any gramm atical, word or spelling errors. Chief Complaint: 68-year-old diabetic male presents to the ER for concerns of needle stuck in his arm. History of Present Illness: Patient 6-year-old male past several comorbidities. He was changing the implanted glucometer and his arm. He was taking the old hardware out to switch it out. States that the needle seem to have been stuck in his arm. Happened approximate 1 hour ago. The ROS documented in this emergency department record has been reviewed and confirmed by me. Those systems with pertinent positive or negative responses have been documented in the HPI. All other systems are other negative and/or noncontributory. - Related Data Home Medications Medication Instructions Recorded Confirmed Primidone 200 mg PO BID 12/16/14 10/03/22 sitaGLIPtin [Januvia] 100 mg PO DAILY 12/16/14 10/03/22 Gabapentin 600 mg PO BID 09/17/16 10/03/22 metFORMIN HCL [Glucophage] 1,000 mg PO BID-W/MEALS 09/17/16 10/03/22 Pioglitazone [Actos] 30 mg PO DAILY 02/13/20 10/03/22 Glimepiride [Amaryl] 4 mg PO DAILY 03/13/20 10/03/22 Aspirin EC [Ecotrin] 325 mg PO DAILY 12/31/20 10/03/22 Ergocalciferol [Vitamin D2 (1250 1,250 mcg PO Q7DAYS 12/21/21 10/03/22 Mcg = 49590 Iu)] Rosuvastatin Calcium 5 mg PO HS 09/14/22 10/03/22 Valsartan 80 mg PO DAILY 09/14/22 10/03/22 carvediloL [Coreg] 3.125 mg PO BID-W/MEALS 09/14/22 10/03/22 Ascorbic Acid [Vitamin C] 500 mg PO DAILY 10/03/22 Cough Suspension 1 dose PO BID PRN 10/03/22 Magnesium Oxide [Magnesium] 1,000 mg PO DAILY 10/03/22 Zinc Gluconate [Zinc] 50 mg PO DAILY 10/03/22 Allergies Allergy/AdvReac Type Severity Reaction Status Date / Time No Known Allergies Allergy Verified 10/03/22 16:44 Review of Systems ROS Statement: Those systems with pertinent positive or pertinent negative responses have been documented in the HPI. ROS Other: All systems not noted in ROS Statement are negative. Past Medical History Past Medical History: CVA/TIA, Diabetes Mellitus, GERD/Reflux, Hyperlipidemia, Hypertension, Neurologic Disorder, Seizure Disorder Additional Past Medical History / Comment(s): carpal tunnel neuropath History of Any Multi-Drug Resistant Organisms: None Reported Past Surgical History: Orthopedic Surgery Additional Past Surgical History / Comment(s): neuropathy, last seizure 1986, "born with convulsions", lymph nodes removed left cervical, left knee surgery Past Anesthesia/Blood Transfusion Reactions: No Reported Reaction Past Psychological History: No Psychological Hx Reported Smoking Status: Never smoker Past Alcohol Use History: None Reported Past Drug Use History: None Reported - Past Family History Mother History Unknown: Yes Family Medical History: Congestive Heart Failure (CHF) Father History Unknown: Yes Family Medical History: Diabetes Mellitus General Exam - General Exam Comments Initial Comments: General: Well-appearing, nontoxic, no acute distress. Head: Normocephalic, atraumatic Eyes: PERRLA, EOMI ENT: Airway patent Chest: Nonlabored breathing Skin: No visual rash, normal skin tone, left arm shows a indurated area to the lateral mid humerus Neuro: Alert and oriented 3 Musculoskeletal: No gross abnormalities Limitations: no limitations Course Vital Signs 10/24/23 18:23 Temperature 97.8 F Pulse Rate 95 Respiratory 18 Rate Blood Pressure 185/103 O2 Sat by Pulse 99 Oximetry Medical Decision Making - Medical Decision Making Was pt. sent in by a medical professional or institution (, PA, RECORD CENTER COORDINATOR, urgent care, hospital, or group home...) When possible be specific @ -No Did you speak to anyone other than the patient for history (EMS, parent, family, police, friend...)? What history was obtained from this source @ -No Did you review nursing and triage notes (agree or disagree)? Why? @ -I reviewed and agree with nursing and triage notes Were old charts reviewed (outside hosp., previous admission, EMS record, old EKG, old radiological studies, urgent care reports/EKG's, group home records)? Report findings @ -No old charts were reviewed Differential Diagnosis (chest pain, altered mental status, abdominal pain women, abdominal pain men, vaginal bleeding, musculoskeletal, weakness, fever, dyspnea, syncope, headache, dizziness, GI bleed, back pain, seizure, CVA, palpatations, mental health)? @ -Not applicable EKG interpreted by me (3pts min.). @ -None done X-rays interpreted by me (1pt min.). @ -X-ray shows no foreign bodies CT interpreted by me (1pt min.). @ -None done U/S interpreted by me (1pt. min.). @ -None done What testing was considered but not performed or refused? (CT, X-rays, U/S, labs)? Why? @ -None What meds were considered but not given or refused? Why? @ -None Did you discuss the management of the patient with other professionals (professionals i.e. , PA, RECORD CENTER COORDINATOR, lab, RT, psych nurse, criminal justice social worker, jacquard lace weaver, teacher, chief sales officer, ed case manager)? Give summary @ -No Was smoking cessation discussed for >3mins.? @ -No Was critical care preformed (if so, how long)? @ -No Were there social determinants of health that impacted care today? How? (Homelessness, low income, unemployed, alcoholism, drug addiction, transportation, low edu. Level, literacy, decrease access to med. care, [facility], rehab)? @ -No Was there de-escalation of care discussed even if they declined (Discuss DNR or withdrawal of care, Hospice)? DNR status @ -No What co-morbidities impacted this encounter? (DM, HTN, Smoking, COPD, CAD, Cancer, CVA, ARF, Chemo, Hep., AIDS, mental health diagnosis, sleep apnea, morbid obesity)? @ -None Was patient admitted / discharged? Hospital course, mention meds given and route, prescriptions, significant lab abnormalities, going to OR and other pertinent info. @ -68-year-old male presents to the emergency department concerned of foreign body needle embedded in his skin of his left arm. Vital signs stable. X-ray shows no foreign bodies. Ultrasound was used which did not identify any foreign bodies. Patient likely has a scar formation versus small subcu hematoma. Nonetheless patient stable for discharge. Vies follow-up primary care doctor. Undiagnosed new problem with uncertain prognosis? @ -No Drug Therapy requiring intensive monitoring for toxicity (Heparin, Nitro, Insulin, Cardizem)? @ -No Were any procedures done? @ -No Diagnosis/symptom? Acute, or Chronic, or Acute on Chronic? Uncomplicated (without systemic symptoms) or Complicated (systemic symptoms)? @ -Left arm complaint Side effects of treatment? @ -No Exacerbation, Progression, or Severe Exacerbation? @ -No Poses a threat to life or bodily function? How? (Chest pain, [place], [place], pneumonia, PE, COPD, DKA, ARF, appy, cholecystitis, CVA, Diverticulitis, Homicidal, Suicidal, threat to staff... and all critical care pts) @ -No Disposition Clinical Impression: Needlestick injury of upper arm Disposition: HOME SELF-CARE Condition: Good Instructions (If sedation given, give patient instructions): Needle Stick Injuries (ED) Is patient prescribed a controlled substance at d/c from ED?: No Referrals: Serafin Bourgeois MD [Primary Care Provider] - 1-2 days Time of Disposition: 19:32
[2023-10-24 18:43] VITALS: TEMP 97.8
--- NOTE | 2023-10-24 19:16 | XR ---
EXAMINATION TYPE: XR humerus LT DATE OF EXAM: 10/24/2023 7:04 PM CLINICAL INDICATION:Male, 68 years old with history of needle stuck in skin; [facility] COMPARISON: TECHNIQUE: The left humerus was examined in frontal and lateral projections. 4 images. FINDINGS: No evidence of acute osseous pathology, joint dislocation, or soft tissue swelling. The rem aining portions of the visualized chest are unremarkable. No radiopaque foreign body is seen. IMPRESSION: No acute fracture, dislocation, or radiopaque foreign body.
[2023-10-24 20:10] VITALS: BP 152/92; PULSE 76; RESP 20
== END 2023-10-24 19:46 | disposition home or self-care (01) ==
LOC: EC 18:16
DX: S40.852A Superficial foreign body of left upper arm, initial encounter (principal); E11.40 Type 2 diabetes mellitus with diabetic neuropathy, unspecified; E78.5 Hyperlipidemia, unspecified; I10 Essential (primary) hypertension; K21.9 Gastro-esophageal reflux disease without esophagitis; Z79.84 Long term (current) use of oral hypoglycemic drugs; Z79.82 Long term (current) use of aspirin; Z79.899 Other long term (current) drug therapy; W46.0XXA Contact with hypodermic needle, initial encounter; Y99.0 Civilian activity done for income or pay
CPT/HCPCS: 99283

== ENCOUNTER → 2023-12-05 | Outpatient (CLI) | payer MEDICARE, OTHER ==
[2023-12-05 11:16] LABS: African American GFR (CKD) >90 (>60 ml/min/1.73 sqM); Blood Urea Nitrogen 13 mg/dL (9-20); Non-African American GFR(CKD) >90 (>60 ml/min/1.73 sqM)
--- NOTE | 2023-12-05 15:05 | CT ---
EXAMINATION TYPE: CT abdomen pelvis w con DATE OF EXAM: 12/05/2023 COMPARISON: 03/13/2020 HISTORY: 68-year-old male R10.84, General abdomen pain, pt states they are gassy TECHNIQUE: Contiguous axial scanning of the abdomen and pelvis following administration of 100 ml Iso pranav 300 IV contrast. Delayed images through the kidneys and coronal/sagittal reconstructions perform ed. CT DLP: 497.40 mGycm Automated exposure control for dose reduction was used. FINDINGS: Heart normal size without pericardial effusion. Three-vessel coronary artery calcifications are present. Dependent atelectasis in the visualized lower lungs with mild emphysematous change. No pleural effusion. Mild circumferential wall thickening distal esophagus. Correlate for any symptoms of esophagitis. Scattered small hepatic cysts measuring up tor 9 mm. Portal venous system is patent. No biliary ducta l dilatation. Gallbladder, spleen, pancreas within normal limits. Mild diffuse thickening of the bilateral adrenal glands is unchanged and no discrete nodularity. Symmetric uptake and excretion of contrast from both kidneys. Small renal cortical cysts measuring up to 1.7 cm. No dilated small bowel, free fluid, or free air. No mesenteric or retroperitoneal lymphadenopathy see n. Portions of a normal appendix is seen. There is severe stool burden. Transverse colon is distended u p to 5.5 cm wide. Prominent distention of the urinary bladder. Prostate gland measures 4.8 cm wide. There is a rounded 2.9 cm fluid area in the lower right inguinal canal. Moderate degenerative disc disease L3-L4. No osseous destructive process. IMPRESSION: 1. SEVERE STOOL BURDEN. CORRELATE FOR CONSTIPATION. 2. A ROUND 2.9 CM AREA IN THE LOWER RIGHT NEURAL CANAL COULD REPRESENT AN INFECTED HYDROCELE OR HIGH RIDING TESTICLE. IF SYMPTOMATIC HERE, SCROTAL ULTRASOUND CAN BE CONSIDERED. 3. Mild circumferential wall thickening distal esophagus. Correlate for any symptoms of mild esophagi tis.
--- NOTE | 2023-12-05 16:24 | BD ---
EXAMINATION TYPE: Axial Bone Density DATE OF EXAM: 12/05/2023 CLINICAL HISTORY: 68 years old Male. ICD-10 CODE: M85.88 OTH DISORDER BONE R10.84 GEN ABD PAIN Height: 68 in Weight: 141 lbs EXAM MEASUREMENTS: Bone mineral densitometry was performed using the [employer]. Bone mineral density as measured about the Lumbar spine is: ----- L1-L4(G/cm2): 1.119 T Score Values are as follows: ----- L1: -1.8 ----- L2: -1.2 ----- L3: 0.1 ----- L4: 0.5 ----- L1-L4: -0.5 Z Score Values are as follows: ----- L1: -1.1 ----- L2: -0.6 ----- L3: 0.7 ----- L4: 1.2 ----- L1-L4: 0.1 Bone mineral density baseline Bone mineral density about the R hip (g/cm2): 0.930 Bone mineral density about the L hip (g/cm2): 0.924 T Score values are as follows: -----R Neck: -1.0 -----L Neck: -1.1 -----R Total: -0.6 -----L Total: -0.7 Z Score values are as follows: -----R Neck: 0.2 -----L Neck: 0.1 -----R Total: -0.2 -----L Total: -0.3 Bone mineral density baseline FRAX%s: The graph provided illustrates a 5.6% chance for a major osteoporotic fx and a 1.1% chance fo r the hips probability for fx in 10 years time. IMPRESSION: Normal (Values between +1 and -1 indicate normal bone mass). Consider repeating this study in 5 year s or sooner if there is some new clinical indication. NOTE: T-SCORE=SD OF THE YOUNG ADULT MEAN.
== END | disposition home or self-care (01) ==
LOC: RADBDWWP 09:35
PROVIDERS: ATTEND Internal Medicine
DX: K22.89 Other specified disease of esophagus (principal); M85.89 Other specified disorders of bone density and structure, multiple sites; R10.84 Generalized abdominal pain
CPT/HCPCS: 82565; 84520; 77080; 74177; 36415; Q9967

== ENCOUNTER 2024-02-17 14:18 | Emergency (ER) | payer MEDICARE, OTHER ==
[2024-02-17 14:25] VITALS: RESP 18; TEMP 98
--- NOTE | 2024-02-17 14:35 | ED ---
Abdominal Pain HPI - General Chief Complaint: Abdominal Pain Stated Complaint: Abd pain Time Seen by Provider: 02/17/24 14:32 Source: patient, RN notes reviewed Mode of arrival: ambulatory Limitations: no limitations - History of Present Illness Initial Comments: This is a 68-year-old male presents the emergency department chief complaint of abdominal pain has been present since August. Patient states that he has sought out care from his primary care provider where a CT of the abdomen was completed in November still experiencing pain. Patient's pain is point tenderness of the left abdomen and is described as a stabbing sensation. States that his l ast bowel movement was this morning, and denies dark or tarry stools or hematochezia. Denies dysuria, hematuria, increase in frequency or urgency. Denies fevers, chills, chest pain, shortness of breath. That his last colonoscopy was in 1994 and has a colonoscopy scheduled with Dr. Medina next week. Denies previous surgeries on his abdomen. - Related Data Home Medications Medication Instructions Recorded Confirmed Primidone 200 mg PO BID 12/16/14 10/03/22 sitaGLIPtin [Januvia] 100 mg PO DAILY 12/16/14 10/03/22 Gabapentin 600 mg PO BID 09/17/16 10/03/22 metFORMIN HCL [Glucophage] 1,000 mg PO BID-W/MEALS 09/17/16 10/03/22 Pioglitazone [Actos] 30 mg PO DAILY 02/13/20 10/03/22 Glimepiride [Amaryl] 4 mg PO DAILY 03/13/20 10/03/22 Aspirin EC [Ecotrin] 325 mg PO DAILY 12/31/20 10/03/22 Ergocalciferol [Vitamin D2 (1250 1,250 mcg PO Q7DAYS 12/21/21 10/03/22 Mcg = 52842 Iu)] Rosuvastatin Calcium 5 mg PO HS 09/14/22 10/03/22 Valsartan 80 mg PO DAILY 09/14/22 10/03/22 carvediloL [Coreg] 3.125 mg PO BID-W/MEALS 09/14/22 10/03/22 Ascorbic Acid [Vitamin C] 500 mg PO DAILY 10/03/22 Cough Suspension 1 dose PO BID PRN 10/03/22 Magnesium Oxide [Magnesium] 1,000 mg PO DAILY 10/03/22 Zinc Gluconate [Zinc] 50 mg PO DAILY 10/03/22 Previous Rx's Medication Instructions Recorded Ketorolac [Toradol] 10 mg PO Q8HR #15 tab 02/17/24 Lidocaine 5% Patch [Lidoderm] 1 patch TOPICAL DAILY #14 patch 02/17/24 Allergies Allergy/AdvReac Type Severity Reaction Status Date / Time No Known Allergies Allergy Verified 02/17/24 14:25 Review of Systems ROS Statement: Those systems with pertinent positive or pertinent negative responses have been documented in the HPI. ROS Other: All systems not noted in ROS Statement are negative. Past Medical History Past Medical History: CVA/TIA, Diabetes Mellitus, GERD/Reflux, Hyperlipidemia, Hypertension, Neurologic Disorder, Seizure Disorder Additional Past Medical History / Comment(s): carpal tunnel neuropath History of Any Multi-Drug Resistant Organisms: None Reported Past Surgical History: Orthopedic Surgery Additional Past Surgical History / Comment(s): neuropathy, last seizure 1986, "born with convulsions", lymph nodes removed left cervical, left knee surgery Past Anesthesia/Blood Transfusion Reactions: No Reported Reaction Past Psychological History: No Psychological Hx Reported Smoking Status: Never smoker Past Alcohol Use History: None Reported Past Drug Use History: None Reported - Past Family History Mother History Unknown: Yes Family Medical History: Congestive Heart Failure (CHF) Father History Unknown: Yes Family Medical History: Diabetes Mellitus General Exam Limitations: no limitations General appearance: alert, in no apparent distress Head exam: Present: atraumatic, normocephalic, normal inspection Eye exam: Present: normal appearance, PERRL, EOMI. Absent: scleral icterus, conjunctival injection, periorbital swelling ENT exam: Present: normal exam, mucous membranes moist Neck exam: Present: normal inspection. Absent: tenderness, meningismus, lympha denopathy Respiratory exam: Present: normal lung sounds bilaterally. Absent: respiratory distress, wheezes, rales, rhonchi, stridor Cardiovascular Exam: Present: regular rate, normal rhythm, normal heart sounds. Absent: systolic murmur, diastolic murmur, rubs, gallop, clicks GI/Abdominal exam: Present: soft, tenderness (LUQ, no rebound and no overlying skin changes or discoloration), normal bowel sounds. Absent: distended, guarding, rebound, rigid Extremities exam: Present: normal inspection, full ROM, normal capillary refill. Absent: tenderness, pedal edema, joint swelling, calf tenderness Back exam: Present: normal inspection Neurological exam: Present: alert, oriented X3, CN II-XII intact Psychiatric exam: Present: normal affect, normal mood Course Vital Signs 02/17/24 14:20 Temperature 98.0 F Pulse Rate 71 Respiratory 18 Rate Blood Pressure 158/82 O2 Sat by Pulse 99 Oximetry Medical Decision Making - Medical Decision Making Was pt. sent in by a medical professional or institution (, PA, DELIVERY TECH, urgent care, hospital, or skilled nursing...) When possible be specific @ -No Did you speak to anyone other than the patient for history (EMS, parent, family, police, friend...)? What history was obtained from this source @ -No Did you review nursing and triage notes (agree or disagree)? Why? @ -I reviewed and agree with nursing and triage notes Were old charts reviewed (outside hosp., previous admission, EMS record, old EKG, old radiological studies, urgent care reports/EKG's, skilled nursing records)? Report findings @ -reviewed the patient's CT of the abdomen and pelvis that was completed on 12/05/2023 was noted to have a severe stool burden. Differential Diagnosis (chest pain, altered mental status, abdominal pain women, abdominal pain men, vaginal bleeding, weakness, fever, dyspnea, syncope, headache, dizziness, GI bleed, back pain, seizure, CVA, palpatations, mental health, musculoskeletal)? @ -Differential Abdominal Pain Men: Appendicitis, cholecystitis, diverticulosis, ischemic bowel, pancreatitis, hepatitis, UTI, gastroenteritis, AAA, incarcerated hernia, bowel obstruction, constipation, inflammatory bowel, hepatitis, peptic ulcer disease, splenic infarction, perforated viscus, testicular torsion, this is not meant to be an all-inclusive list EKG interpreted by me (3pts min.). @ -none X-rays interpreted by me (1pt min.). @ -KUB x-ray no renal calculi visualized, nonspecific bowel gas pattern without evidence for acute process. CT interpreted by me (1pt min.). @ -None done U/S interpreted by me (1pt. min.). @ -None done What testing was considered but not performed or refused? (CT, X-rays, U/S, labs)? Why? @ -None What meds were considered but not given or refused? Why? @ -None Did you discuss the management of the patient with other professionals (professionals i.e. , PA, DELIVERY TECH, lab, RT, psych nurse, social worker assistant, utilization management um nurse, teacher, army officer, correctional case manager)? Give summary @ -No Was smoking cessation discussed for >3mins.? @ -No Was critical care preformed (if so, how long)? @ -No Were there social determinants of health that impacted care today? How? (Homelessness, low income, unemployed, alcoholism, drug addiction, garcia sportation, low edu. Level, literacy, decrease access to med. care, residential, rehab)? @ -No Was there de-escalation of care discussed even if they declined (Discuss DNR or withdrawal of care, Hospice)? DNR status @ -No What co-morbidities impacted this encounter? (DM, HTN, Smoking, COPD, CAD, Cancer, CVA, ARF, Chemo, Hep., AIDS, mental health diagnosis, sleep apnea, morbid obesity)? @ -None Was patient admitted / discharged? Hospital course, mention meds given and route, prescriptions, significant lab abnormalities, going to OR and other pertinent info. @ -Discharged. 68-year-old male with left upper quadrant abdominal pain. Patient's pain is reproducible with palpation and he has point tenderness that is located on the distal left side of the ribs. There is no overlying skin changes or discoloration. Patient is well-appearing and vitals are stable upon arrival. He will be evaluated. Laboratory studies in addition to urinalysis and x-ray of the abdomen due to previous history of severe constipation. Labs including CBC, CMP and urinalysis unremarkable. lipase nonelevated. Patient states that he has used IcyHot over the area in the past that he has had some relief to his discomfort. Patient states that he was prescribed Bentyl by his primary care provider which has not aided in symptoms. Patient will be provided with a prescription for Toradol and lidocaine patches in addition to a lidocaine patch being placed on his abdomen before the patient leaves. He has an appointment scheduled for a colonoscopy next week. All questions answered at bedside and strict return parameters discussed with the patient and he is verbalized understanding. Case discussed with Dr. Atkins Undiagnosed new problem with uncertain prognosis? @ -No Drug Therapy requiring intensive monitoring for toxicity (Heparin, Nitro, Insulin, Cardizem)? @ -No Were any procedures done? @ -No Diagnosis/symptom? @ -abdominal pain Acute, or Chronic, or Acute on Chronic? @ -Acute Uncomplicated (without systemic symptoms) or Complicated (systemic symptoms)? @ -uncomplicated Side effects of treatment? @ -No Exacerbation, Progression, or Severe Exacerbation? @ -No Poses a threat to life or bodily function? How? (Chest pain, USA, MT, pneumonia, PE, COPD, DKA, ARF, appy, cholecystitis, CVA, Diverticulitis, Homicidal, Suicidal, threat to staff... and all critical care pts) @ -No - Lab Data Result diagrams: 02/17/24 15:11 02/17/24 15:11 Lab Results 02/17/24 02/17/24 02/17/24 Range/Units 15:11 15:11 15:45 WBC 6.1 (3.8-10.6) k/uL RBC 4.07 L (4.30-5.90) m/uL Hgb 13.7 (13.0-17.5) gm/dL Hct 41.2 (39.0-53.0) % MCV 101.2 H (80.0-100.0) fL MCH 33.7 (25.0-35.0) pg MCHC 33.3 (31.0-37.0) g/dL RDW 12.2 (11.5-15.5) % Plt Count 218 (150-450) k/uL MPV 6.7 Neutrophils % 47 % Lymphocytes % 38 % Monocytes % 8 % Eosinophils % 4 % Basophils % 1 % Neutrophils # 2.9 (1.3-7.7) k/uL Lymphocytes # 2.3 (1.0-4.8) k/uL Monocytes # 0.5 (0-1.0) k/uL Eosinophils # 0.2 (0-0.7) k/uL Basophils # 0.1 (0-0.2) k/uL Sodium 134 L (137-145) mmol/L Potassium 4.0 (3.5-5.1) mmol/L Chloride 99 (98-107) mmol/L Carbon Dioxide 30 (22-30) mmol/L Anion Gap 5 mmol/L BUN 11 (9-20) mg/dL Creatinine 0.72 (0.66-1.25) mg/dL Est GFR (CKD-EPI)AfAm >90 (>60 ml/min/1.73 sqM) Est GFR (CKD-EPI)NonAf >90 (>60 ml/min/1.73 sqM) Glucose 134 H (74-99) mg/dL Calcium 9.2 (8.4-10.2) mg/dL Total Bilirubin 0.3 (0.2-1.3) mg/dL AST 24 (17-59) U/L ALT 15 (4-49) U/L Alkaline Phosphatase 75 (38-126) U/L Total Protein 6.8 (6.3-8.2) g/dL Albumin 4.0 (3.5-5.0) g/dL Lipase 129 (23-300) U/L Urine Color Colorless Urine Appearance Clear (Clear) Urine pH 7.0 (5.0-8.0) Ur Specific [place] 1.007 (1.001-1.035) Urine Protein 1+ H (Negative) Urine Glucose (UA) Negative (Negative) Urine Ketones Negative (Negative) Urine Blood Negative (Negative) Urine Nitrite Negative (Negative) Urine Bilirubin Negative (Negative) Urine Urobilinogen <2.0 (<2.0) mg/dL Ur Leukocyte Esterase Negative (Negative) Urine RBC 1 (0-5) /hpf Urine Mucus Rare H (None) /hpf Disposition Clinical Impression: Abdominal pain Disposition: HOME SELF-CARE Condition: Good Instructions (If sedation given, give patient instructions): Abdominal Pain (ED) Additional Instructions: Return to the emergency department if your symptoms worsen or improve. Use pain medication as needed and lidocaine patches. Recommend that you keep your appointment with Dr. Holcomb for colonoscopy. Prescriptions: Lidocaine 5% Patch [Lidoderm] 1 patch TOPICAL DAILY #14 patch Ketorolac [Toradol] 10 mg PO Q8HR #15 tab Is patient prescribed a controlled substance at d/c from ED?: No Referrals: Serafin Bourgeois MD [Primary Care Provider] - 1-2 days Time of Disposition: 16:30
[2024-02-17 15:23] LABS: Basophils # (A) 0.1 k/uL (0-0.2); Basophils % (A) 1 %; Eosinophils # (A) 0.2 k/uL (0-0.7); Eosinophils % (A) 4 %; HCT 41.2 % (39.0-53.0); HGB 13.7 gm/dL (13.0-17.5); Lymphocytes # (A) 2.3 k/uL (1.0-4.8); Lymphocytes % (A) 38 %; MCH 33.7 pg (25.0-35.0); MCHC 33.3 g/dL (31.0-37.0); MCV 101.2 fL (80.0-100.0); Mean Platelet Volume 6.7; Monocytes # (A) 0.5 k/uL (0-1.0); Monocytes % (A) 8 %; Neutrophils # (A) 2.9 k/uL (1.3-7.7); Neutrophils % (A) 47 %; Platelet Count 218 k/uL (150-450); RBC 4.07 m/uL (4.30-5.90); RDW 12.2 % (11.5-15.5); WBC 6.1 k/uL (3.8-10.6)
--- NOTE | 2024-02-17 15:45 | XR ---
EXAMINATION TYPE: XR KUB DATE OF EXAM: 02/17/2024 3:38 PM CLINICAL INDICATION:Male, 68 years old with history of left sided ab pain, hx of constipation; [facility] COMPARISON: None. TECHNIQUE: One radiographic view of the abdomen was obtained. FINDINGS: The bowel gas pattern is nonspecific without dilated loops of small or large bowel. . Fecal material and gas are demonstrated throughout the colon and rectum. There is no evidence for organomegaly or pneumoperitoneum. The osseous structures are intact. Pelvi c phleboliths are present. IMPRESSION: 1. No renal calculi visualized. 2. Nonspecific bowel gas pattern without radiographic evidence for acute process.
[2024-02-17 16:10] LABS: Appearance,Urine Clear (Clear); Bilirubin,Urine Negative (Negative); Blood,Urine Negative (Negative); Color,Urine Colorless; Glucose,Urine (UA) Negative (Negative); Ketones,Urine Negative (Negative); Leukocyte Esterase,Urine Negative (Negative); Mucus,Urine Rare /hpf; Nitrite,Urine Negative (Negative); Protein,Urine 1+ (Negative); RBC,Urine 1 /hpf (0-5); Specific Gravity,Urine 1.007 (1.001-1.035); Urobilinogen,Urine <2.0 mg/dL (<2.0)
[2024-02-17 16:18] LABS: ALT 15 U/L (4-49); AST 24 U/L (17-59); African American GFR (CKD) >90 (>60 ml/min/1.73 sqM); Alkaline Phosphatase 75 U/L (38-126); Anion Gap 5 mmol/L; Blood Urea Nitrogen 11 mg/dL (9-20); Calcium 9.2 mg/dL (8.4-10.2); Carbon Dioxide 30 mmol/L (22-30); Chloride 99 mmol/L (98-107); Glucose 134 mg/dL (74-99); Lipase 129 U/L (23-300); Non-African American GFR(CKD) >90 (>60 ml/min/1.73 sqM); Sodium 134 mmol/L (137-145); Total Bilirubin 0.3 mg/dL (0.2-1.3); Total Protein 6.8 g/dL (6.3-8.2)
[2024-02-17] MEDS: LIDOCAINE 4% PATCH TOPICAL ONE (16:35)
[2024-02-17 16:45] VITALS: BP 151/84; PULSE 58
== END 2024-02-17 16:43 | disposition home or self-care (01) ==
LOC: EC 14:18
DX: R10.32 Left lower quadrant pain (principal)
CPT/HCPCS: 36415; 74018; 80053; 81001; 83690; 85025; 99284

== ENCOUNTER 2024-02-25 06:09 | Day surgery (SDC) | payer MEDICARE, OTHER ==
[2024-02-25 06:59] VITALS: TEMP 97
[2024-02-25] MEDS: LACTATED RINGERS 1,000 ML IV SCH (07:01)
[2024-02-25] MEDS: IV FLUID CONTINUATION 1,000 ML IV ONE (07:01)
[2024-02-25 07:11] LABS: Glucose,Whole Blood 152 mg/dL (70-110)
[2024-02-25] MEDS ORDERED: PROPOFOL 10 MG/ML 20 ML VIAL IV ONE (07:31)
[2024-02-25] MEDS ORDERED: LIDOCAINE 1% INJ 10MG/ML (20 ML MDV) ONE (07:31)
--- NOTE | 2024-02-25 07:59 | P.PCN ---
Date of Procedure: 02/25/24 Procedure(s) Performed: Brief history: Patient is a pleasant 68-year-old white male scheduled for an elective upper endoscopy as well as colonoscopy as a part of evaluation of abdominal pain mostly in epigastric area and left upper quadrant areas with abdominal bloating and screening for colon cancer Procedure performed: Esophagogastroduodenoscopy with biopsy Colonoscopy with biopsy Preoperative diagnosis: Epigastric abdominal pain/abdominal bloating Screening for colon cancer Anesthesia: [facility] [place]: After informed consent was obtained from the patient was brought into the endoscopy unit and IV sedation was administered by anesthesia under continuous monitoring. Initially upper endoscopy was done. The Olympus GF 160 video endoscope was inserted inserted into the mouth and esophagus intubated without any difficulty and was gradually advanced into the stomach and duodenum and carefully examined. The bulb and second part of the duodenum appeared normal. The scope was then withdrawn into the stomach adequately insufflated with air and upon careful examination the antrum and body had linear areas of erythema consistent with gastritis and biopsies were done from this area. Mucosa of the, cardia and fundus appeared normal. The scope was then withdrawn into the esophagus. The GE junction was located at 40 cm to the incisors. It appeared regular with no erythema erosions or ulcerations. There was 3 mm tongues of Hu's appearing mucosa just proximal to the GE junction which was biopsied. Rest of the esophagus appeared normal. Patient tolerated the procedure well. At this time the patient continued to remain sedation. Initial digital rectal examination was normal. Olympus CF 160 video colonoscope was then inserted into the rectum and gradually advanced to the cecum without any difficulty. Careful examination was performed as the scope was gradually being withdrawn. The prep was fair. The cecum, ascending colon, transverse colon, descending colon, sigmoid colon and rectum appeared normal. Retroflexion was performed in the rectum and no lesions were noted. Scattered sigmoid diverticulosis seen. In the rectum there was a 5 mm polyp that was removed by cold biopsy. Patient tolerated the procedure well. Impression: 1. Upper endoscopy revealed mild antral gastritis and short segment Hu's esophagus 2. Colonoscopy revealed 5 mm rectal polyp status post cold biopsy and scattered sigmoid diverticulosis Recommendations: Findings of this examination were discussed with the patient as well as his family. He was advised follow-up with the biopsy results. If the biopsy of colon polyps reveals adenoma, recommended repeat colonoscopy in 5 years.
[2024-02-25 08:29] VITALS: BP 160/72; PULSE 68; RESP 20
== END 2024-02-25 08:36 | disposition home or self-care (01) ==
LOC: ORWHC2ENDO 06:09
PROVIDERS: ATTEND Internal Medicine Gastroenterology
DX: Z12.11 Encounter for screening for malignant neoplasm of colon (principal); K57.30 Diverticulosis of large intestine without perforation or abscess without bleeding; K31.9 Disease of stomach and duodenum, unspecified; K22.70 Barrett's esophagus without dysplasia; D12.8 Benign neoplasm of rectum; G40.909 Epilepsy, unspecified, not intractable, without status epilepticus; E11.9 Type 2 diabetes mellitus without complications; K21.9 Gastro-esophageal reflux disease without esophagitis; M19.90 Unspecified osteoarthritis, unspecified site; F12.90 Cannabis use, unspecified, uncomplicated; Z86.73 Personal history of transient ischemic attack (TIA), and cerebral infarction without residual deficits; Z79.4 Long term (current) use of insulin; Z79.899 Other long term (current) drug therapy
CPT/HCPCS: 88305; 45380; 43239; J2001; J2704

== ENCOUNTER → 2024-04-09 | Outpatient (CLI) | payer MEDICARE, OTHER | END | disposition home or self-care (01) | LOC: LABWHC1 06:57 | PROVIDERS: ATTEND Nurse Practitioner Acute Care | DX: Z53.9 Procedure and treatment not carried out, unspecified reason (principal) ==

== ENCOUNTER → 2024-04-29 | Outpatient (CLI) | payer MEDICARE, OTHER ==
--- NOTE | 2024-04-29 16:25 | NM ---
EXAMINATION TYPE: NM hepatobiliary w EF DATE OF EXAM: 04/29/2024 COMPARISON: NONE CLINICAL INDICATION: Male, 69 years old with history of R10.11 RIGHT UPPER QUADRANT PAIN TECHNIQUE: After the intravenous administration of 5.27 mCi Tc 99m Mebrofenin hepatobiliary scintigra phy is performed. Immediate images post injection. FINDINGS: There is satisfactory initial accumulation of tracer by the liver. The gallbladder is visualized wit hin 8 minutes. The small bowel activity is noted faintly at 58 minutes. At one hour 8 ounces of ora l ensure plus is given to mimic CCK and gallbladder ejection fraction is calculated at 87%, estimated above the expected range (35-80%). IMPRESSION: 1. No scintigraphic evidence for acute/chronic cholecystitis or biliary dyskinesia. 2. Increased gallbladder ejection fraction of 87% may be seen with gallbladder hyperkinesis.
== END | disposition home or self-care (01) ==
LOC: RADNMMAIN 12:28
PROVIDERS: ATTEND Internal Medicine
DX: R10.11 Right upper quadrant pain
CPT/HCPCS: 78226

== ENCOUNTER → 2024-07-19 | Outpatient (CLI) | payer MEDICARE, OTHER ==
--- NOTE | 2024-07-20 13:45 | US ---
EXAMINATION TYPE: US groin RT DATE OF EXAM: 07/19/2024 COMPARISON: CT 2023 CLINICAL INDICATION: Male, 69 years old with history of R19.00 INTRA-ABD AND PELVIC SWELLING, MASS AN D LUM; Mass per order. Mass seen on CT in the right groin. TECHNIQUE: Scanned right groin FINDINGS: Hypoechoic area with hyperechoic center seen in the right groin = 2.1 x 0.9 x 0.8 cm. No other abnormalities seen by ultrasound at this time. IMPRESSION: Lymph node identified without cortical thickening at the site of clinical concern. [facility], , 07/20/2024 1:43 PM
== END | disposition home or self-care (01) ==
LOC: RADUSWWP 07:56
PROVIDERS: ATTEND Surgery Plastic and Reconstructive Surgery
DX: R19.01 Right upper quadrant abdominal swelling, mass and lump (principal)

== ENCOUNTER 2024-08-19 13:10 | Emergency (ER) | payer MEDICARE, OTHER ==
--- NOTE | 2024-08-19 13:50 | ED ---
General Adult HPI - General Source: patient, RN notes reviewed Mode of arrival: ambulatory Limitations: no limitations <Priscilla Bell - Last Filed: 08/19/24 13:49> - General Source: patient, RN notes reviewed Mode of arrival: ambulatory Limitations: no limitations <Melissa Culp - Last Filed: 08/20/24 07:02> - General Chief complaint: Abdominal Pain Stated complaint: Fever,Vomiting Time Seen by Provider: 08/19/24 13:22 - History of Present Illness Initial comments: Noe notethitonya is a 69-year-old male presenting to emergency room chief complaint of intermittent left-sided abdominal pain, nausea, vomiting, chills over the past 2 days. He denies cough, rhinorrhea, congestion, chest pain, aly rtness of breath. (Priscilla Bell) This is a 69-year-old male who presents to the emergency department for abdominal pain, nausea, and vomiting. States that yesterday he started to have nausea and vomiting and felt generally unwell. Today he started to notice pain on the left side of his abdomen as well as a bulge in this area. Believes that he has a history of hernias. He is still passing gas. He does struggle with constipation on and off as well. He has had chills but denies measuring any fevers. Denies any URI symptoms. (Melissa Culp) - Related Data Home Medications Medication Instructions Recorded Confirmed Primidone 200 mg PO BID 12/16/14 02/25/24 Gabapentin 600 mg PO TID 09/17/16 02/25/24 Rosuvastatin Calcium 5 mg PO HS 09/14/22 02/25/24 Valsartan 160 mg PO DAILY 09/14/22 02/25/24 carvediloL [Coreg] 6.25 mg PO BID 09/14/22 02/25/24 Magnesium Oxide [Magnesium] 1,000 mg PO DAILY 10/03/22 02/25/24 Zinc Gluconate [Zinc] 50 mg PO DAILY 10/03/22 02/25/24 Cholecalciferol (Vitamin D3) 2,000 unit PO DAILY 02/20/24 02/25/24 [Vitamin D3 (50 Mcg = 2000 Iu) Chew Tab] Fiber 1 dose PO DAILY 02/20/24 02/25/24 Insulin Aspart [NovoLOG] 5 units SQ AC-TID 02/20/24 02/25/24 Insulin Degludec [Tresiba] 24 units SQ DAILY 02/20/24 02/25/24 Ketorolac [Toradol] 10 mg PO Q8HR PRN 02/20/24 02/25/24 [place]lett-3/Dha/Epa/Fish Oil [Fish Oil 1 each PO DAILY 02/20/24 02/25/24 1,000 mg Softgel] Pantoprazole [Protonix] 40 mg PO DAILY 02/20/24 02/25/24 amLODIPine [Norvasc] 5 mg PO DAILY 02/20/24 02/25/24 Previous Rx's Medication Instructions Recorded Ketorolac [Toradol] 10 mg PO Q6HR PRN #15 tab 08/19/24 Ondansetron Odt [Zofran Odt] 4 mg PO Q8HR PRN #15 tab 08/19/24 Allergies Allergy/AdvReac Type Severity Reaction Status Date / Time No Known Allergies Allergy Verified 08/19/24 13:39 Review of Systems ROS Other: All systems not noted in ROS Statement are negative. <Priscilla Bell - Last Filed: 08/19/24 13:49> ROS Other: All systems not noted in ROS Statement are negative. <Melissa Culp - Last Filed: 08/20/24 07:02> ROS Statement: Those systems with pertinent positive or pertinent negative responses have been documented in the HPI. Past Medical History Past Medical History: CVA/TIA, Diabetes Mellitus, GERD/Reflux, Hyperlipidemia, Hypertension, Neurologic Disorder, Seizure Disorder Additional Past Medical History / Comment(s): carpal tunnel neuropath History of Any Multi-Drug Resistant Organisms: None Reported Past Surgical History: Orthopedic Surgery Additional Past Surgical History / Comment(s): neuropathy, last seizure 1986, "born with convulsions", lymph nodes removed left cervical, left knee surgery Past Anesthesia/Blood Transfusion Reactions: No Reported Reaction Past Psychological History: No Psychological Hx Reported Smoking Status: Never smoker Past Drug Use History: None Reported - Past Family History Mother History Unknown: Yes Family Medical History: Congestive Heart Failure (CHF) Father History Unknown: Yes Family Medical History: Diabetes Mellitus <Priscilla Bell - Last Filed: 08/19/24 13:49> General Exam Limitations: no limitations <Priscilla Bell - Last Filed: 08/19/24 13:49> Limitations: no limitations General appearance: alert, in no apparent distress Head exam: Present: atraumatic, normocephalic, normal inspection Respiratory exam: Present: normal lung sounds bilaterally. Absent: respiratory distress, wheezes, rales, rhonchi, stridor Cardiovascular Exam: Present: regular rate, normal rhythm, normal heart sounds. Absent: systolic murmur, diastolic murmur, rubs, gallop, clicks GI/Abdominal exam: Present: soft, tenderness (diffuse), normal bowel sounds. Absent: distended Neurological exam: Present: alert, oriented X3, CN II-XII intact Psychiatric exam: Present: normal affect, normal mood Skin exam: Present: warm, dry, intact, normal color. Absent: rash <Melissa Culp - Last Filed: 08/20/24 07:02> - General Exam Comments Initial Comments: Visual Physical Exam Vital signs reviewed General: Well-appearing, nontoxic, no acute distress. Head: Normocephalic, atraumatic Eyes: PERRLA, EOMI ENT: Airway patent Chest: Nonlabored breathing Skin: No visual rash, normal skin tone Neuro: Alert and oriented 3 Musculoskeletal: No gross abnormalities (Priscilla Bell) Course Vital Signs 08/19/24 08/19/24 08/19/24 13:40 16:45 18:23 Temperature 97 F L 97.9 F 9704 F H Pulse Rate 59 L 81 67 Respiratory 16 18 18 Rate Blood Pressure 204/95 190/88 197/89 O2 Sat by Pulse 100 99 99 Oximetry Medical Decision Making <Priscilla Bell - Last Filed: 08/19/24 13:49> - Lab Data Result diagrams: 08/19/24 15:20 08/19/24 15:20 - Radiology Data Radiology results: report reviewed, image reviewed <Melissa Culp - Last Filed: 08/20/24 07:02> - Medical Decision Making I completed the quick note portion of this chart signed Priscilla Bell PA-C (Priscilla Bell) This is a 69-year-old male who presents to the emergency department for abdominal pain and nausea. Was pt. sent in by a medical professional or institution? @ -No Did you speak to anyone other than the patient for history? @ -No Did you review nursing and triage notes? @ -Yes, and I agree, it is accurate with regards to the patient's symptoms. Were old charts reviewed? @ -No Differential Diagnosis? @ -Differential Abdominal Pain Men: Appendicitis, cholecystitis, diverticulosis, ischemic bowel, pancreatitis, hepatitis, UTI, gastroenteritis, AAA, incarcerated hernia, bowel obstruction, constipation, inflammatory bowel, hepatitis, peptic ulcer disease, splenic infarction, perforated viscus, testicular torsion, this is not meant to be an all-inclusive list EKG interpreted by me (3pts min.)? @ -Not obtained X-rays interpreted by me (1pt min.)? @ -Not obtained CT interpreted by me (1pt min.)? @ -CT scan of the abdomen and pelvis obtained. My interpretation identifies a large stool burden. U/S interpreted by me (1pt. min.)? @ -Not obtained What testing was considered but not performed? (CT, X-rays, U/S, labs)? Why? @ -None What meds were considered but not given? Why? @ -None Did you discuss the management of the patient with other professionals? @ -No Did you reconcile home meds? @ -No Was smoking cessation discussed for >3mins.? @ -No Was critical care preformed (if so, how long)? @ -No Were there social determinants of health that impacted care today? How? (Homelessness, low income, unemployed, alcoholism, drug addiction, transportation, low edu. Level, literacy, decrease access to med. care, penitentiary, rehab)? @ -No Was there de-escalation of care discussed even if they declined? (Discuss DNR or withdrawal of care, Hospice)? @ -No What co-morbidities impacted this encounter? (DM, HTN, Smoking, COPD, CAD, Cancer, CVA, Hep., AIDS, mental health diagnosis, sleep apnea, morbid obesity)? @ -DM Was patient admitted / discharged? @ -Discharged. Lab work unremarkable. Urinalysis was ordered, however patient was unable to provide a sample prior to discharge. CT scan of the abdomen and pelvis obtained revealing a large stool burden throughout the colon. No additional findings were identified. Symptoms were managed in the emergency department. Advised that symptoms are likely related to the severity of his constipation. Patient declined an enema in the emergency department. He was sent home with GoLytely solution and advised that he needs to be on a regular stool regimen after this to try to prevent this kind of buildup again. Toradol and Zofran prescribed to help with his symptoms in the meantime. Patient discharged home in stable condition. Case discussed with ED attending Dr. Turner. Return precautions reviewed in depth, the patient is instructed to return to the emergency department with any new, worsening, or concerning symptoms. Patient verbalized understanding. Undiagnosed new problem with uncertain prognosis? @ -None Drug Therapy requiring intensive monitoring for toxicity (Heparin, Nitro, Insulin, Cardizem)? @ -None Were any procedures done? @ -None Diagnosis/symptom? @ -Abdominal pain, constipation Acute, or Chronic, or Acute on Chronic? @ -Acute Uncomplicated (without systemic symptoms) or Complicated (systemic symptoms)? @ -Uncomplicated Side effects of treatment? @ -None Exacerbation, Progression, or Severe Exacerbation] @ -Not applicable Poses a threat to life or bodily function? @ -No (Melissa Culp) - Lab Data Lab Results 08/19/24 08/19/24 08/19/24 Range/Units 15:20 15:20 15:20 WBC 8.5 (3.8-10.6) k/uL RBC 4.74 (4.30-5.90) m/uL Hgb 16.4 (13.0-17.5) gm/dL Hct 47.2 (39.0-53.0) % MCV 99.6 (80.0-100.0) fL MCH 34.5 (25.0-35.0) pg MCHC 34.6 (31.0-37.0) g/dL RDW 12.3 (11.5-15.5) % Plt Count 229 (150-450) k/uL MPV 6.2 Neutrophils % 67 % Lymphocytes % 20 % Monocytes % 9 % Eosinophils % 2 % Basophils % 1 % Neutrophils # 5.6 (1.3-7.7) k/uL Lymphocytes # 1.7 (1.0-4.8) k/uL Monocytes # 0.7 (0-1.0) k/uL Eosinophils # 0.1 (0-0.7) k/uL Basophils # 0.1 (0-0.2) k/uL Sodium 135 L (137-145) mmol/L Potassium 4.3 (3.5-5.1) mmol/L Chloride 96 L (98-107) mmol/L Carbon Dioxide 29 (22-30) mmol/L Anion Gap 10 mmol/L BUN 15 (9-20) mg/dL Creatinine 0.74 (0.66-1.25) mg/dL Est GFR (CKD-EPI)AfAm >90 (>60 ml/min/1.73 sqM) Est GFR (CKD-EPI)NonAf >90 (>60 ml/min/1.73 sqM) Glucose 107 H (74-99) mg/dL Calcium 10.3 H (8.4-10.2) mg/dL Total Bilirubin 0.4 (0.2-1.3) mg/dL AST 26 (17-59) U/L ALT 19 (4-49) U/L Alkaline Phosphatase 118 (38-126) U/L Total Protein 8.7 H (6.3-8.2) g/dL Albumin 5.1 H (3.5-5.0) g/dL Lipase 84 (23-300) U/L Influenza Type A (PCR) Not Detected (Not Detectd) Influenza Type B (PCR) Not Detected (Not Detectd) RSV (PCR) Not Detected (Not Detectd) SARS-CoV-2 (PCR) Not Detected (Not Detectd) Disposition <Priscilla Bell - Last Filed: 08/19/24 13:49> Is patient prescribed a controlled substance at d/c from ED?: No Time of Disposition: 17:53 <Melissa Culp - Last Filed: 08/20/24 07:02> Clinical Impression: Constipation, Abdominal pain Disposition: HOME SELF-CARE Instructions (If sedation given, give patient instructions): Constipation (ED), Abdominal Pain (ED) Additional Instructions: Return to the emergency department with any new, worsening, or concerning symptoms. Consume the GoLytely solution provided and after you clear yourself out, try to start a regular stool maintenance regimen. Make sure you also remain well-hydrated. Take the Toradol with Tylenol as needed for pain relief. If you choose to take the Toradol, do not take any other anti-inflammatories such as ibuprofen, take one or the other. Take the Zofran up to every 8 hours as needed for nausea and vomiting. Follow up with your primary care provider in 1-2 days. Prescriptions: Ketorolac [Toradol] 10 mg PO Q6HR PRN #15 tab PRN Reason: Pain Ondansetron Odt [Zofran Odt] 4 mg PO Q8HR PRN #15 tab PRN Reason: Nausea And Vomiting Referrals: Serafin Bourgeois MD [Primary Care Provider] - 1-2 days
[2024-08-19 15:28] LABS: HCT 47.2 % (39.0-53.0); HGB 16.4 gm/dL (13.0-17.5); MCV 99.6 fL (80.0-100.0); RBC 4.74 m/uL (4.30-5.90); WBC 8.5 k/uL (3.8-10.6)
[2024-08-19 15:29] LABS: Basophils # (A) 0.1 k/uL (0-0.2); Basophils % (A) 1 %; Eosinophils # (A) 0.1 k/uL (0-0.7); Eosinophils % (A) 2 %; Lymphocytes # (A) 1.7 k/uL (1.0-4.8); Lymphocytes % (A) 20 %; MCH 34.5 pg (25.0-35.0); MCHC 34.6 g/dL (31.0-37.0); Mean Platelet Volume 6.2; Monocytes # (A) 0.7 k/uL (0-1.0); Monocytes % (A) 9 %; Neutrophils # (A) 5.6 k/uL (1.3-7.7); Neutrophils % (A) 67 %; Platelet Count 229 k/uL (150-450); RDW 12.3 % (11.5-15.5)
[2024-08-19 15:47] LABS: ALT 19 U/L (4-49); AST 26 U/L (17-59); African American GFR (CKD) >90 (>60 ml/min/1.73 sqM); Albumin 5.1 g/dL (3.5-5.0); Alkaline Phosphatase 118 U/L (38-126); Anion Gap 10 mmol/L; Blood Urea Nitrogen 15 mg/dL (9-20); Calcium 10.3 mg/dL (8.4-10.2); Carbon Dioxide 29 mmol/L (22-30); Chloride 96 mmol/L (98-107); Glucose 107 mg/dL (74-99); Lipase 84 U/L (23-300); Non-African American GFR(CKD) >90 (>60 ml/min/1.73 sqM); Potassium 4.3 mmol/L (3.5-5.1); Sodium 135 mmol/L (137-145); Total Bilirubin 0.4 mg/dL (0.2-1.3); Total Protein 8.7 g/dL (6.3-8.2)
[2024-08-19] MEDS: KETOROLAC 15 MG/ML 1 ML VIAL IVP STA (16:47)
[2024-08-19] MEDS: ONDANSETRON 4 MG/2 ML VIAL IVP STA (16:47)
[2024-08-19] MEDS: SODIUM CHLORIDE 0.9% 1,000 ML IV STA (16:48)
[2024-08-19] MEDS: MORPHINE SULFATE 4 MG/ML SYRINGE IVP STA (16:48)
[2024-08-19 16:49] VITALS: RESP 18
--- NOTE | 2024-08-19 17:22 | CT ---
EXAMINATION TYPE: CT abdomen pelvis w con DATE OF EXAM: 08/19/2024 5:13 PM COMPARISON: 12/05/2023 CLINICAL INDICATION: Male, 69 years old with history of Left sided abdominal pain; abdominal pain TECHNIQUE: Axial CT abdomen pelvis w con;Sagittal and coronal reformats were created on a separate w orkstation. Contrast used:100 mL of Isovue 300 with IV Contrast, (none if empty) Oral contrast used: without Oral Contrast (none if empty) CT DLP: 601.9 mGycm, Automated exposure control for dose reduction was used. FINDINGS: LOWER CHEST: Unremarkable ABDOMEN LIVER: Scattered simple and minimally complex hepatic probable cyst. GALLBLADDER AND BILE DUCTS: Unremarkable. PANCREAS: Unremarkable. SPLEEN: Unremarkable. ADRENAL GLANDS: Unremarkable. KIDNEYS AND URETERS: No evidence of hydronephrosis or renal calculus. The ureters are unremarkable. Simple appearing bilateral renal cysts. Remote left renal injury with cortical thinning. Laterally. PELVIS BLADDER: No evidence for wall thickening or mass given limitations of exam. REPRODUCTIVE: Unremarkable. ABDOMEN & PELVIS STOMACH AND BOWEL: No evidence of bowel obstruction. Large amount of stool throughout the colon. PERITONEUM/RETROPERITONEUM: No evidence of pneumoperitoneum or free fluid. VASCULATURE: No evidence of aortic aneurysm. MUSCULOSKELETAL: No acute osseous abnormalities LYMPH NODES: No gross evidence for lymphadenopathy. SOFT TISSUE/ABDOMINAL WALL: Unremarkable IMPRESSION: 1. Large stool burden throughout the colon. Correlate for constipation. No other acute abdominal pro cess visualized. No evidence for obstructing mass. Consider fecal disimpaction. 2. No additional evidence for acute left-sided process to explain the patient's pain. No hydronephro sis. [facility], , 08/19/2024 5:20 PM
[2024-08-19] MEDS: PEG 3350 (236 GM/BTL) + LYTES 4,000 ML BOTTLE PO ONE (18:20)
[2024-08-19] MEDS: ONDANSETRON 4 MG ODT STARTER PACK 2 TAB BTL PO STA (18:20)
[2024-08-19 18:25] VITALS: BP 197/89; PULSE 67; TEMP 9704
== END 2024-08-19 18:29 | disposition home or self-care (01) ==
LOC: EC 13:10
DX: K59.00 Constipation, unspecified (principal); Z11.52 Encounter for screening for COVID-19; E11.9 Type 2 diabetes mellitus without complications
CPT/HCPCS: 36415; 80053; 83690; 85025; 87636; 74177; 99284; 96374; 96375 ×2; 96361; J2270; J2405; J1885; S0119; Q9967

== ENCOUNTER → 2024-09-20 | Outpatient (CLI) | payer MEDICARE, OTHER ==
--- NOTE | 2024-09-20 09:08 | US ---
EXAMINATION TYPE: US groin LT DATE OF EXAM: 09/20/2024 COMPARISON: CT abdomen and pelvis 08/19/2024, 12/05/2023 CLINICAL INDICATION: Male, 69 years old with history of R22.40 LUMP; Left groin/upper thigh palpable per patient since August. TECHNIQUE: Sonographic images taken. FINDINGS/IMPRESSION: Multiple images taken of patients area of concern of palpable at left groin/upp er thigh. Lymph nodes visualized. Largest lymph node with short axis measurement = 0.7 cm and corti annalise thickness- 2.7 mm. These demonstrate normal central hilum. These are favored to represent benign reactive lymph nodes. [facility], , 09/20/2024 9:05 AM
== END | disposition home or self-care (01) ==
LOC: RADUSWWP 08:37
PROVIDERS: ATTEND Internal Medicine
DX: R22.40 Localized swelling, mass and lump, unspecified lower limb (principal)

== ENCOUNTER 2024-10-01 06:00 | Day surgery (SDC) | payer MEDICARE, OTHER ==
[~2024-10-01 06:00] MED LIST changes: -DEXAMETHASONE SOD PHOSPHATE 10 MG/ML 1 ML VIAL IV ONE; -HYDROmorphone 0.5 MG/0.5 ML SYRINGE IVP PRN; -LACTATED RINGERS 1,000 ML IV SCH; -ONDANSETRON 4 MG/2 ML VIAL IVP ONE; +ONDANSETRON 4 MG/2 ML VIAL IVP PRN
--- NOTE | 2024-10-01 06:22 | P.GSHP ---
History of Present Illness H&P Date: 10/01/24 CHIEF COMPLAINT: Cholecystitis HISTORY OF PRESENT ILLNESS: The patient is a 69-year-old male who presents with intractable abdominal pain. Patient was recently hospitalized due to his abdominal pain with abnormal elevation of WBCs. He underwent diagnostic studies for the gallbladder. Separately his clinical picture was consistent with cholecystitis. Now he presents for surgical intervention. PAST MEDICAL HISTORY: Please see list PAST SURGICAL HISTORY: Please see list MEDICATIONS: Please see list ALLERGIES: Denies. SOCIAL HISTORY: No illicit drug use or recent tobacco use FAMILY HISTORY: Pertinent for gallbladder disease REVIEW OF ORGAN SYSTEMS: CONSTITUTIONAL: No reports of fevers or chills. HEENT: Denies any troubles with the vision. ENDOCRINE: No reports of hypothyroidism. Has diabetes. RESPIRATORY: No recent pneumonias. CARDIOVASCULAR: Denies chest pain or palpitations GI: No blood in stools or constipation. MUSCULOSKELETAL: Has occasional joint pain including back pain. NEURO: No seizure disorders or headaches. No recent stroke. PSYCH: No depression or suicidal ideation. HEMATOLOGIC: No personal or family history of DVTs or pulmonary emboli. PHYSICAL EXAM: VITAL SIGNS: Afebrile vital signs stable GENERAL: Well-developed pleasant male in no acute distress. HEENT: No scleral icterus. Extraocular movements grossly intact. Moist buccal mucosa. NECK: Supple without lymphadenopathy. CHEST: Unlabored respirations. Equal bilateral excursions. CARDIOVASCULAR: Regular rate regular rhythm rhythm. Distal 2+ pulses. ABDOMEN: Soft, nondistended. Tender along the epigastrium and right upper quadrant including tender left lower quadrant. MUSCULOSKELETAL: No clubbing, cyanosis, or edema. NEURO : No focal or lateralizing signs. Cranial nerves II-12 within normal limits. PSYCH: Alert and oriented to person, place and time. SKIN: Well perfused. Good skin turgor. ASSESSMENT: 1. Intractable abdominal pain 2. Chronic cholecystitis PLAN: 1. Will need a robotic cholecystectomy possible open. Benefits and risks were described. 2. Heparin for DVT prophylaxis 5000 units. 3. Antibiotic prophylaxis. 4. CBC and CMP on day of procedure 5. Non-narcotic pre and post op pain management reviewed. 6. Indocyanine green for biliary imaging. Past Medical History Past Medical History: CVA/TIA, Diabetes Mellitus, GERD/Reflux, Hyperlipidemia, Hypertension, Neurologic Disorder, Seizure Disorder Additional Past Medical History / Comment(s): carpal tunnel neuropath History of Any Multi-Drug Resistant Organisms: None Reported Past Surgical History: Orthopedic Surgery Additional Past Surgical History / Comment(s): neuropathy, last seizure 1986, "born with convulsions", lymph nodes removed left cervical, left knee surgery Past Anesthesia/Blood Transfusion Reactions: No Reported Reaction Smoking Status: Never smoker - Past Family History Mother History Unknown: Yes Family Medical History: Congestive Heart Failure (CHF) Father History Unknown: Yes Family Medical History: Diabetes Mellitus Medications and Allergies Home Medications Medication Instructions Recorded Confirmed Type Primidone 200 mg PO BID 12/16/14 09/28/24 History Gabapentin 400 mg PO TID 09/17/16 09/28/24 History Rosuvastatin Calcium 5 mg PO HS 09/14/22 09/28/24 History Magnesium Oxide [Magnesium] 1,000 mg PO DAILY 10/03/22 09/28/24 History Zinc Gluconate [Zinc] 50 mg PO DAILY 10/03/22 09/28/24 History Fiber 14 mg PO DAILY 02/20/24 09/28/24 History Insulin Degludec [Tresiba] 24 units SQ DAILY 02/20/24 09/28/24 History Pantoprazole [Protonix] 40 mg PO DAILY 02/20/24 09/28/24 History amLODIPine [Norvasc] 5 mg PO BID 02/20/24 09/28/24 History Cholecalciferol [Vitamin D3 (125 125 mcg PO DAILY 09/24/24 09/28/24 History Mcg = 5000 Iu)] Fish Oil/Dha/Epa [Fish Oil 1,200 2 cap PO DAILY 09/24/24 09/28/24 History mg Fish Oil] Insulin Aspart [NovoLOG Flexpen] 5 units SQ AC-TID 09/24/24 09/28/24 History Tramadol 100 mg PO Q6H PRN 09/24/24 09/28/24 History Valsartan 160 mg PO DAILY 09/24/24 09/28/24 History carvediloL [Coreg] 25 mg PO BID 30 Days #60 tablet 09/25/24 09/28/24 Rx Allergies Allergy/AdvReac Type Severity Reaction Status Date / Time No Known Allergies Allergy Verified 09/28/24 11:15
[2024-10-01] MEDS ORDERED: INDOCYANINE GREEN 25 MG VIAL IV STA (06:25)
[2024-10-01] MEDS: IV FLUID CONTINUATION 1,000 ML IV ONE (06:27)
[2024-10-01 06:52] LABS: Glucose,Whole Blood 158 mg/dL (70-110)
[2024-10-01 07:03] LABS: Basophils % (A) 1 %; Eosinophils # (A) 0.1 k/uL (0-0.7); Eosinophils % (A) 2 %; HCT 39.8 % (39.0-53.0); HGB 13.5 gm/dL (13.0-17.5); Lymphocytes # (A) 2.3 k/uL (1.0-4.8); Lymphocytes % (A) 33 %; MCH 34.8 pg (25.0-35.0); MCHC 33.9 g/dL (31.0-37.0); MCV 102.4 fL (80.0-100.0); Macrocytosis Slight; Mean Platelet Volume 6.6; Monocytes # (A) 0.5 k/uL (0-1.0); Monocytes % (A) 7 %; Neutrophils # (A) 3.9 k/uL (1.3-7.7); Neutrophils % (A) 56 %; Platelet Count 222 k/uL (150-450); RBC 3.88 m/uL (4.30-5.90); RDW 12.3 % (11.5-15.5); WBC 6.9 k/uL (3.8-10.6)
[2024-10-01] MEDS: ACETAMINOPHEN TAB 500 MG TAB PO PRN (07:03)
[2024-10-01] MEDS: TAMSULOSIN 0.4 MG CAP.ER.24H PO STA (07:03)
[2024-10-01] MEDS: LACTATED RINGERS 1,000 ML IV SCH (07:03)
[2024-10-01] MEDS: ONDANSETRON 4 MG/2 ML VIAL IVP ONE (07:04)
[2024-10-01] MEDS: DEXAMETHASONE SOD PHOSPHATE 4 MG/ML 1 ML VIAL IV ONE (07:04)
[2024-10-01] MEDS: HEPARIN SODIUM,PORCINE 5,000 UNIT/ML 1 ML VIAL SQ PRN (07:04)
[2024-10-01 07:14] LABS: ALT 25 U/L (4-49); AST 21 U/L (17-59); African American GFR (CKD) >90 (>60 ml/min/1.73 sqM); Albumin 3.8 g/dL (3.5-5.0); Alkaline Phosphatase 74 U/L (38-126); Anion Gap 6 mmol/L; Blood Urea Nitrogen 19 mg/dL (9-20); Calcium 9.5 mg/dL (8.4-10.2); Carbon Dioxide 31 mmol/L (22-30); Chloride 99 mmol/L (98-107); Glucose 154 mg/dL (74-99); Non-African American GFR(CKD) >90 (>60 ml/min/1.73 sqM); Potassium 4.8 mmol/L (3.5-5.1); Sodium 136 mmol/L (137-145); Total Bilirubin 0.5 mg/dL (0.2-1.3); Total Protein 6.5 g/dL (6.3-8.2)
[2024-10-01] MEDS ORDERED: ROCURONIUM 10 MG/ML (5 ML VIAL) IV ONE (07:29)
[2024-10-01] MEDS ORDERED: GLYCOPYRROLATE 0.2 MG/ML 2 ML VIAL ONE (07:29)
[2024-10-01] MEDS ORDERED: INDOCYANINE GREEN 25 MG VIAL IV ONE (07:29)
[2024-10-01] MEDS ORDERED: SUCCINYLCHOLINE CHLORIDE 200 MG/10 ML VIAL IV ONE (07:29)
[2024-10-01] MEDS ORDERED: fentaNYL (PF) 50 MCG/ML 2 ML AMP ONE (07:29)
[2024-10-01] MEDS ORDERED: NEOSTIGMINE 1 MG/ML 10 ML VIAL ONE (07:29)
[2024-10-01] MEDS ORDERED: LIDOCAINE 1% INJ 10MG/ML (20 ML MDV) ONE (07:29)
[2024-10-01] MEDS ORDERED: MIDAZOLAM 2 MG/2 ML VIAL ONE (07:29)
[2024-10-01] MEDS ORDERED: PROPOFOL 10 MG/ML 20 ML VIAL IV ONE (07:29)
[2024-10-01] MEDS ORDERED: HYDROmorphone (PF) 1 MG/ML ONE (07:29)
[2024-10-01] MEDS ORDERED: ePHEDrine 50 MG/ML 1 ML VIAL ONE (07:29)
[2024-10-01] MEDS: LIDOCAINE 1%-EPI 1:100,000 20 ML VIAL SQ ONE (07:54)
[2024-10-01] MEDS: LACTATED RINGERS 1,000 ML IV ONE (08:29)
[2024-10-01 09:12] VITALS: TEMP 97.3
[2024-10-01] MEDS: hydrALAZINE HCL 20 MG/ML 1 ML VIAL IVP PRN (09:13)
[2024-10-01 09:27] VITALS: RESP 16
[2024-10-01] MEDS: HYDROmorphone 0.5 MG/0.5 ML SYRINGE IVP PRN (09:44)
--- NOTE | 2024-10-01 09:45 | P.OP ---
Date of Procedure: 10/01/24 Description of Procedure: SURGEON: DAYSI GUZMÁN MD PREOPERATIVE DIAGNOSES: 1. Chronic cholecystitis 2. Intractable abdominal pain 3. Left lower quadrant abdominal pain 4. Hypertensive heart disease 5. Diabetes type 2 with neuropathy 6. Hyperlipidemia 7. Gastroesophageal reflux disease 8. Diabetes type 2, insulin-dependent 9. History of cerebrovascular accident 10. History of seizure disorder POSTOPERATIVE DIAGNOSES: 1. Chronic cholecystitis 2. Intractable abdominal pain 3. Left lower quadrant abdominal pain 4. Hypertensive heart disease 5. Diabetes type 2 with neuropathy 6. Right inguinal hernia, indirect, 1 cm 7. Severe sigmoid diverticulosis 8. Hyperlipidemia 9. Gastroesophageal reflux disease 10. Diabetes type 2, insulin-dependent 11. History of cerebrovascular accident 12. History of seizure disorder OPERATION: Robotic-assisted da Clover Xi laparoscopic cholecystectomy, multiport with FIREFLY ESTIMATED BLOOD LOSS: 5 mL. SPECIMENS REMOVED: Gallbladder. COMPLICATIONS: None. OPERATIVE FINDINGS: 1. Intractable abdominal pain secondary to severe sigmoid diverticulosis location of pain 2. Appendix unremarkable 3. Highly redundant sigmoid at risk for sigmoid volvulus INDICATIONS: The patient is a 69-year-old female who presents intractable abdominal pain. Diagnostic studies demonstrated chronic cholecystitis. Robotic assisted laparoscopic approach was described. Benefits and risks of the procedure including but not limited to bleeding, infection, injury to the biliary tree was described. Informed consent was obtained. DESCRIPTION OF PROCEDURE: Patient was brought to the operating room, placed in supine position. After general induction, the abdomen had been prepped and draped in standard sterile fashion. The robotic da Clover XI system was primed. After a timeout protocol was performed, the patient had been prepped and draped in standard sterile fashion. The patient was injected with indocyanine green. A 5 mm 0 degrees laparoscopic trocar entry was performed along the left upper quadrant. The abdomen insufflated to 15 mmHg pressure which was tolerated well. Diagnostic laparoscopy demonstrated no injury to bowel viscera or mesentery. The liver surface was unremarkable. Diagnostic studies demonstrated multiple sigmoid diverticulosis large consistent with area of pain. Small indirect right inguinal hernia, 1 cm was identified. Next, two 8 mm robotic ports were placed along the right upper abdomen. The camera 8-mm port was maintained along the epigastrium. Another 8 mm port was placed along the left upper abdominal wall after exchanging the 5 mm port. Please note that the ports were placed at least 10 to 15 cm away from the target anatomy of the gallbladder. The robot was docked along the left lateral abdomen. The patient was repositioned in reverse Trendelenburg position. Using a grasper for arm 3, a grasper for arm 4, including hook cautery for arm 1, the robotic system was docked and primed as described. Instruments were interchanged by the hospital nursing assistant including hook cautery, Bovie cautery and clip appliers. I had sat at the console. Next attention was brought to the infundibulum and cystic structures. The infundibulum and cystic duct were dissected free from surrounding tissues. The cystic duct was isolated. FIREFLY was used to identify the cystic artery and cystic structures. A critical view of safety was obtained. Large PLASTIC clips were used throughout the entire case. Using a clip welding machine operator submerged arc, 3 clips were placed at the junction of the infundibulum and cystic duct. The cystic duct was divided between clips. Next, the cystic artery was similarly clipped and cauterized. Duct of Luschka was clipped. Electro-Bovie cautery was used to remove the gallbladder from the hepatic fossa. Hemostasis was checked and found to be adequate. The robot was undocked. I re-scrubbed into the case. Using a 10 mm Endo Catch bag via the left upper quadrant incision, the specimen was removed from the abdominal cavity. All pneumoperitoneum instruments were evacuated from the abdominal cavity. The incisions were reapproximated using 4-0 Monocryl in an interrupted subcuticular fashion. Fascial defects were less than 8 mm in size. Please note along the trocar sites, local anesthetic was placed as a field block prior to insertion of all instruments. Liquid glue was applied to the skin. At the end of the procedure needle, sponge, and instrument count had been verified correct by the surgical physician assistant. The patient was transferred to postanesthesia care unit in stable condition. Plan - Discharge Summary Discharge Rx Participant: No New Discharge Prescriptions: New Ibuprofen [Motrin] 600 mg PO Q8HR PRN #30 tab PRN Reason: Pain Simethicone [Gas-X] 125 mg PO AC-TID PRN #20 capsule PRN Reason: Pain Acetaminophen Tab [Tylenol Tab] 1,000 mg PO Q6HR PRN #30 tablet PRN Reason: Pain Continue Primidone 200 mg PO BID Gabapentin 400 mg PO TID Rosuvastatin Calcium 5 mg PO HS Zinc Gluconate [Zinc] 50 mg PO DAILY Pantoprazole [Protonix] 40 mg PO DAILY amLODIPine [Norvasc] 5 mg PO BID Cholecalciferol [Vitamin D3 (125 Mcg = 5000 Iu)] 125 mcg PO DAILY Fish Oil/Dha/Epa [Fish Oil 1,200 mg Fish Oil] 2 cap PO DAILY Valsartan 160 mg PO DAILY Insulin Aspart [NovoLOG Flexpen] 5 units SQ AC-TID carvediloL [Coreg] 25 mg PO BID 30 Days #60 tablet Magnesium Oxide [Magnesium] 1,000 mg PO DAILY Fiber 14 mg PO DAILY Insulin Degludec [Tresiba] 24 units SQ DAILY Tramadol 100 mg PO Q6H PRN PRN Reason: Pain Discharge Medication List Primidone 200 mg PO BID 12/16/14 [History] Gabapentin 400 mg PO TID 09/17/16 [History] Rosuvastatin Calcium 5 mg PO HS 09/14/22 [History] Magnesium Oxide [Magnesium] 1,000 mg PO DAILY 10/03/22 [History] Zinc Gluconate [Zinc] 50 mg PO DAILY 10/03/22 [History] Fiber 14 mg PO DAILY 02/20/24 [History] Insulin Degludec [Tresiba] 24 units SQ DAILY 02/20/24 [History] Pantoprazole [Protonix] 40 mg PO DAILY 02/20/24 [History] amLODIPine [Norvasc] 5 mg PO BID 02/20/24 [History] Cholecalciferol [Vitamin D3 (125 Mcg = 5000 Iu)] 125 mcg PO DAILY 09/24/24 [History] Fish Oil/Dha/Epa [Fish Oil 1,200 mg Fish Oil] 2 cap PO DAILY 09/24/24 [History] Insulin Aspart [NovoLOG Flexpen] 5 units SQ AC-TID 09/24/24 [History] Tramadol 100 mg PO Q6H PRN 09/24/24 [History] Valsartan 160 mg PO DAILY 09/24/24 [History] carvediloL [Coreg] 25 mg PO BID 30 Days #60 tablet 09/25/24 [Rx] Acetaminophen Tab [Tylenol Tab] 1,000 mg PO Q6HR PRN #30 tablet 10/01/24 [Rx] Ibuprofen [Motrin] 600 mg PO Q8HR PRN #30 tab 10/01/24 [Rx] Simethicone [Gas-X] 125 mg PO AC-TID PRN #20 capsule 10/01/24 [Rx] Follow up Appointment(s)/Referral(s): Daysi Guzmán MD [STAFF PHYSICIAN] - 10/05/24 7:00 pm ([facility]LE[facility], CALLS YOU) Patient Instructions/Handouts: *Surgery [facility] - Laparoscopic Cholecystectomy Discharge Instructions, *[facility] - (Anesthesia) Discharge Instructions Outpatient Surgery, Low Fat Diet (DC) Activity/Diet/Wound Care/Special Instructions: TELE[facility]ALTH - WILL CALL YOU BETWEEN 9 am to 8 pm NO LONG DRIVES OR AIRPLANE RIDES OVER 60 MINUTES FOR THE NEXT 2 WEEKS, 10/15/24, DUE TO HIGH RISK OF PULMONARY EMBOLISM/DVTs May drive in 72 hrs, 10/04/24 Recommend low-fat diet for the next 2 days. No lifting over 10 pounds in 2 weeks until 10/15/24 May shower. No bath tub soaks for two weeks until 10/15/24 Diet as tolerated. Use Tylenol, simethicone scheduled for the next 24-48 hours for best pain relief. Use ice along incisions for today to prevent swelling. Discharge Disposition: HOME SELF-CARE
[2024-10-01 10:04] LABS: Glucose,Whole Blood 176 mg/dL (70-110)
[2024-10-01] MEDS: KETOROLAC 15 MG/ML 1 ML VIAL IVP STA (10:54)
[2024-10-01 12:01] VITALS: BP 155/70; PULSE 70
== END 2024-10-01 12:04 | disposition home or self-care (01) ==
LOC: OR 06:00
PROVIDERS: ATTEND Surgery Plastic and Reconstructive Surgery
DX: K81.1 Chronic cholecystitis (principal); E11.40 Type 2 diabetes mellitus with diabetic neuropathy, unspecified; E78.5 Hyperlipidemia, unspecified; G40.909 Epilepsy, unspecified, not intractable, without status epilepticus; I11.9 Hypertensive heart disease without heart failure; K21.9 Gastro-esophageal reflux disease without esophagitis; K40.90 Unilateral inguinal hernia, without obstruction or gangrene, not specified as recurrent; K57.30 Diverticulosis of large intestine without perforation or abscess without bleeding; Z79.4 Long term (current) use of insulin; Z79.899 Other long term (current) drug therapy; Z86.73 Personal history of transient ischemic attack (TIA), and cerebral infarction without residual deficits
CPT/HCPCS: 88304; 80053; 85025; 47562; J2250; J0330; J0360; J1644; J1100; J2710; J0690; J2405; J2003; J3010; J1171 ×2; J1885; J2704; J1596

== ENCOUNTER → 2024-11-18 | Outpatient (CLI) | payer MEDICARE, OTHER ==
--- NOTE | 2024-11-18 08:05 | US ---
EXAMINATION TYPE: US abdomen limited DATE OF EXAM: 11/18/2024 COMPARISON: CT 09/24/2024 CLINICAL INDICATION: Male, 69 years old with history of R19.00 INTRA-ABDOMINAL MASS SWELLING; Intraab dominal mass . LUQ scan to check for hernia. Patient had cholecystectomy and left abdomen surgical ex ploration September 2024. Patient has intense pain LUQ. TECHNIQUE: Grayscale with or without color Doppler imaging of the area of hernia concern. Real-time scanning was performed by the critical care physician utilizing Valsalva and additional dynamic maneuve rs to assess for hernia. Images of the contralateral side were also acquired for direct comparison. FINDINGS: Assess for hernia at location of: LUQ at incision Unable to visualize a hernia by ultrasound. Limited exam. Irregular hypoechoic area, possible fluid seen in LUQ just inferior to incision located within the subcutaneous tissues: 3.5 x 2.0 x 0.8 cm. IMPRESSION: 1. Targeted scanning left upper quadrant at the incision. No discrete abdominal wall hernia is clearl y identified by ultrasound. 2. Just below the incision site, there is some suspected irregular fluid versus scar measuring 2.5 x 0.8 x 2.0 cm located within the cutaneous tissue layer. [facility], , 11/18/2024 8:02 AM
== END | disposition home or self-care (01) ==
LOC: RADUSWWP 06:54
PROVIDERS: ATTEND Surgery Plastic and Reconstructive Surgery
DX: R19.09 Other intra-abdominal and pelvic swelling, mass and lump (principal)
CPT/HCPCS: 76705